=== PATIENT | male | born 1945 | race Caucasian/White ===

== ENCOUNTER 2018-01-17 15:04 | Inpatient (IN) | payer OTHER, SELFPAY ==
--- OUTSIDE RECORDS SUMMARY | 2018-01-17 15:06 | XMS REPORT | Clinical Summary ---
:1945 Author Organization [facility] Address [address] [place] [address] Phone Care Team Providers Name Role Phone Unavailable Primary Care Provider Unavailable Allergies No Known Allergies Current Medications Prescription Sig. Disp. Refills Start End Date Status Date amLODIPine Take 5 mg by mouth Active (NORVASC) 5 MG daily. tablet metoprolol Take 25 mg by mouth Active (LOPRESSOR) 25 MG 2 (two) times tablet daily. acetaminophen-cod Take 1 tablet by 30 tablet 0 Active eine (TYLENOL #3) mouth every 4 7 300-30 mg per (four) hours as tablet needed for Pain Do not combine with over the counter Tylenol. Max Daily Amount: 6 tablets docusate sodium Take 1 capsule (100 50 capsule 0 Active (COLACE) 100 MG mg total) by mouth 7 capsule 2 (two) times daily. aspirin 81 MG EC Take 81 mg by mouth 02/14/20 Discontinued tablet daily. 17 levoFLOXacin Take 750 mg by 02/14/20 Discontinued (LEVAQUIN) 750 MG mouth daily Times 7 17 tablet more days.. calcium carbonate Take 2 tablets 30 tablet 0 02/28/20 Discontinued (TUMS) 500 mg (1,000 mg total) by 7 17 chewable tablet mouth daily as needed. enoxaparin Inject 0.4 mLs (40 12 mL 0 04/03/20 (LOVENOX) 40 mg total) 7 17 mg/0.4 mL Syrg subcutaneously daily for 30 days. Active Problems Problem Noted Date Gross hematuria 03/01/2017 Renal mass 03/01/2017 Pleural effusion 02/11/2017 Weakness 02/08/2017 Generalized weakness 02/07/2017 Hematuria, gross 02/07/2017 Renal cell carcinoma (HCC) 02/07/2017 Hypertension 02/07/2017 History of stroke 02/07/2017 Anemia 02/07/2017 Resolved Problems Problem Noted Date Resolved Date Hematuria 02/07/2017 02/07/2017 History of renal cell cancer 02/07/2017 02/07/2017 Encounters Date Type Specialty Care Team Description 03/01/2017 - Hospital Encounter General Internal David Gonzalez 2017 Medicine MD Felipe 03/01/2017 Procedure Pass 03/01/2017 Surgery David Gonzalez NEPHRECTOMY MD Felipe 02/28/2017 Anesthesia Event Sharif Ramon MD 02/07/2017 Orders Only General Internal Medicine 02/06/2017 - Hospital Encounter Cardiology Kiara Berman Weakness ( Primary 02/13/2017 MD Luz Dx);Anemia, Patricio, Abeer, unspecified MD type;Generalized Parhizgar, weakness;Hematuria, MD Tonny gross;History of Shamsee, stroke;Essential Denis-Damián hypertension;Renal MD Bean cell carcinoma, left (HCC);Hematuria;Brandon al cell cancer, unspecified laterality (HCC);Preoperative clearance after 01/16/2017 Social History Tobacco Use Types Packs/Day Years Used Date Former Smoker Smokeless Tobacco: Never Used Comments: quit smoking in 2002 Alcohol Use Drinks/Week oz/Week Comments No Sex Assigned at Date Recorded Not on file Last Filed Vital Signs Vital Sign Reading Time Taken Blood Pressure 129/61 2017 10:38 AM CDT Pulse 74 2017 10:38 AM CDT Temperature 36.1 C (96.9 F) 2017 10:38 AM CDT Respiratory Rate 18 2017 10:38 AM CDT Oxygen Saturation 93% 2017 10:38 AM CDT Inhaled Oxygen Concentration - - Weight 78.2 kg (172 lb 6.4 oz) 03/01/2017 10:12 AM CDT Height 175.3 cm (5' 9") 03/01/2017 10:12 AM CDT Body Mass Index 25.46 03/01/2017 10:12 AM CDT Plan of Treatment Not on file Procedures Procedure Name Priority Date/Time Associated Diagnosis Comments CYSTOSCOPY,TURBT 03/01/2017 11:00 AM CDT Gross hematuria LYMPHADENECTOMY 03/01/2017 11:00 AM CDT Gross hematuria NEPHRECTOMY 03/01/2017 11:00 AM CDT Gross hematuria after 01/16/2017 Results INTRAOPERATIVE PATH REPORT - SCAN (04/13/2017 10:53 AM)Only the most recent of2 resultswithin the time period is included.Manual Differential (2017 4:26 AM)Only the most recent of6 resultswithin the time period is included. Component Value Ref Range Total Counted WBC Morphology Normal Platelet Morphology Normal RBC Morphology Normal Specimen Performing Laboratory Blood - Arm, [address] [address] CBC with platelet count + automated diff (2017 4:26 AM)Only the most recent of7 resultswithin the time period is included. Component Value Ref Range WBC 7.5 3.5 - 10.5 K/L RBC 3.23 (L) 4.63 - 6.08 M/L Hemoglobin 8.5 (L) 13.7 - 17.5 GM/DL Hematocrit 28.2 (L) 40.1 - 51.0 % MCV 87.3 79.0 - 92.2 fL MCH 26.3 25.7 - 32.2 pg MCHC 30.1 (L) 32.3 - 36.5 GM/DL RDW 16.5 (H) 11.6 - 14.4 % Platelets 241 150 - 450 K/CU MM MPV 10.2 9.4 - 12.4 fL nRBC 0 0 - 0 /100 WBC % Neutros 47 % % Lymphs 22 % % Monos 26 % % Eos 1 % % Baso 0 % # Neutros 3.50 1.78 - 5.38 K/L # Lymphs 1.64 1.32 - 3.57 K/L # Monos 1.95 (H) 0.30 - 0.82 K/L # Eos 0.10 0.04 - 0.54 K/L # Baso 0.02 0.01 - 0.08 K/L Immature Granulocytes-Relative 4 (H) 0 - 1 % Specimen Performing Laboratory Blood - Arm, [address] [address] CBC with platelet count + automated diff (2017 4:26 AM)Only the most recent of7 resultswithin the time period is included. Specimen Performing Laboratory Blood Narrative The following orders were created for panel order CBC with platelet count + automated diff. Procedure Abnormality Status --------- ------ CBC with platelet count ...[[id number]]AbnormalFinal result Manual Differential[[id number]] Fi nal result Please view results for these tests on the individual orders. Basic Metabolic Panel - In AM (2017 4:26 AM)Only the most recent of11 resultswithin the time period is included. Component Value Ref Range Sodium 138 136 - 145 meq/L Potassium 3.9 3.5 - 5.1 meq/L Chloride 107 98 - 107 meq/L CO2 22 22 - 29 meq/L BUN 10 7 - 21 mg/dL Creatinine 0.99 0.57 - 1.25 mg/dL Glucose 85 70 - 105 mg/dL Calcium 8.5 8.4 - 10.2 mg/dL EGFR 74Comment: ESTIMATED GFR IS NOT ACCURATE mL/min/1.73 sq m CREATININE CLEARANCE IN PREDICTING GLOMERULAR FILTRATION RATE. ESTIMATED GFR IS NOT APPLICABLE FOR DIALYSIS PATIENTS. Specimen Performing Laboratory Blood - Arm, [address] [address] Hemoglobin and hematocrit (03/03/2017 12:36 PM)Only the most recent of2 resultswithin the time period is included. Component Value Ref Range Hemoglobin 8.6 (L) 13.7 - 17.5 GM/DL Hematocrit 28.1 (L) 40.1 - 51.0 % Specimen Performing Laboratory Blood - Arm, [address] [address] Prepare RBC (03/02/2017 11:54 PM) Component Value Ref Range CROSSMATCH COMPATIBLE Unit ABO O Neg UNIT NUMBER [id number] Status TRANSFUSED Blood Bank Product RED BLOOD CELLS PRODUCT CODE [id number] CROSSMATCH COMPATIBLE Unit ABO O Neg UNIT NUMBER [id number] Status TRANSFUSED Blood Bank Product RED BLOOD CELLS PRODUCT CODE [id number] Specimen Performing Laboratory [employer] [place] XR X-RAY NO CHARGE (03/01/2017 5:03 PM) Specimen Performing Laboratory GE RIS Narrative FINAL REPORT Two abdomen images and a third image show an example of potential missing items. No visible retained sponge with marker similar to that of the provided example. Report called to the operating room staff. Signed: Priyanka Perea MD Report Verified Date/Time:03/01/2017 16:40:45 Reading Location: [facility] C013 Consult Reading Room Procedure Note Interface, External Ris In - 03/01/2017 5:07 PM CDT FINAL REPORT Two abdomen images and a third image show an example of potential missing items. No visible retained sponge with marker similar to that of the provided example. Report called to the operating room staff. Signed: Priyanka Perea MD Report Verified Date/Time: 03/01/2017 16:40:45 Reading Location: [facility] C013 Consult Reading Room /HCT (H&H)-Stat Lab (03/01/2017 4:38 PM)Only the most recent of2 resultswithin the time period is included. Component Value Ref Range Hemoglobin 10.4 (L) 13.0 - 16.8 g/dL Hematocrit 31.0 (L) 40.0 - 50.0 % Specimen Performing Laboratory Blood, [place] [address] [facility] (ABG,NA,K,H&H,GLUCOSE) (03/01/2017 12:21 PM) Specimen Performing Laboratory Blood, Arterial Narrative The following orders were created for panel order [facility] (ABG,NA,K,H&H,GLUCOSE). Procedure Abnormality Status --------- ------ Blood gas, arterial[[id number]]AbnormalFinal result Sodium Na-Stat Lab[[id number]] NormalFinal result Potassium-Stat Lab[[id number]] NormalFinal result Glucose-Stat Lab[[id number]] AbnormalFinal result HGB/HCT (H&H)-Stat Lab[[id number]] Abnormal Final result Please view results for these tests on the individual orders. Potassium-Stat Lab (03/01/2017 12:21 PM) Component Value Ref Range Potassium 4.1 3.6 - 5.5 meq/L Specimen Performing Laboratory Blood, [address] [address] Sodium Na-Stat Lab (03/01/2017 12:21 PM) Component Value Ref Range Sodium 137 135 - 148 meq/L Specimen Performing Laboratory Blood, [address] [address] Glucose-Stat Lab (03/01/2017 12:21 PM) Component Value Ref Range Glucose 114 (H) 70 - 110 mg/dL Specimen Performing Laboratory Blood, [address] [address] Calcium, Ionized (03/01/2017 12:21 PM) Component Value Ref Range Calcium, Ion 1.12 1.12 - 1.27 mmol/L pH, Blood 7.42 Specimen Performing Laboratory Blood [address] [address] Blood gas, arterial (03/01/2017 12:21 PM) Component Value Ref Range pH, Arterial 7.42 7.35 - 7.45 pCO2, Arterial 41 35 - 45 mmHg pO2, Arterial 296 (H) 80 - 90 mmHg O2 Sat, Arterial 99.7 (H) 96.0 - 97.0 % HCO3, Arterial 26 21 - 29 mmol/L Base Excess, Arterial 1.4 -2.0 - 3.0 mmol/L Patient Temperature 37.0 C FIO2 100.0 % Specimen Performing Laboratory Blood, [address] [address] Tissue Exam (03/01/2017 12:18 PM) Component Value Ref Range Case Report Surgical Pathology Report Case: [id number] Authorizing Provider:David Gonzalez MDCollected: 03/01/2017 1218 Ordering Location: [facility] PERIOPERATIVE Received: 03/01/2017 1302 SERVICES Pathologist: Nancy Malone MD Specimens: A) - Urinary Bladder, TUR, TURBTN LEFT LATERAL WALL B) - Mass, RIGHT ANTERIOR CHEST WALL MASS R/O RENAL CELL CARCINOMA METASTASIS C) - Lymph Node, PARA -AORTIC LYMPH NODE D) - Lymph Node, LEFT COMMON ILIAC LYMPH NODE E) - Kidney, Left, LEFT RADICAL NEPHRECTOMY, LEFT RETROPERITONEAL MASS DISSECTION F) - Lymph Node, LEFT RENAL HILAR LYMPH NODE DIAGNOSIS A. BLADDER, LEFT LATERAL WALL, BIOPSY: - FRAGMENT OF SOFT TISSUE, MOSTLY SMOOTH MUSCULAR TISSUE - UROTHELIUM IS NOT IDENTIFIED - NEGATIVE FOR MALIGNANCY (SEE COMMENT) B. MASS, RIGHT ANTERIOR CHEST WALL, EXCISION: - EPIDERMAL INCLUSION CYST, WITH CALCIFICATION,RUPTURE,APPARENTLY COMPLETELY EXCISED; OVERLYING SKIN WITHOUT DIAGNOSTIC ALTERATION C. LYMPH NODE, PARAAORTIC, BIOPSY: - ONE LYMPH NODE, NEGATIVE FOR MALIGNANCY (0/1) D. LYMPH NODES, LEFT COMMON ILIAC, BIOPSY: - FIVE LYMPH NODES, NEGATIVE FOR MALIGNANCY (0/5) E. KIDNEY, LEFT, RADICAL NEPHRECTOMY: - RENAL CELL CARCINOMA, CLASSIC/CLEAR CELL TYPE, GRADE 4(MOSTLY TATE GRADE 2-3) 11.X 8.5 X 8CM, WITH : GRADE 4 RENAL CELL CARCINOMA: ESTIMATED 5% SARCOMATOID RENAL CELL CARCINOMA ESTIMATED 5% - TUMOR IS PRESENT IN ATTENUATED CAPSULAR REGION AT MARGIN OF EXCISION, CLEAR CELL TYPE - EIGHT RENAL HILARLYMPH NODES, NEGATIVE FOR MALIGNANCY (0/8) - SURROUNDING KIDNEY WITHOUT DIAGNOSTIC ALTERATION/FOCAL SCLEROTIC GLOMERULI - URETER AND VESSELS WITHOUT DIAGNOSTIC ALTERATION LEFT ADRENAL, ADRENALECTOMY: - METASTATIC POORLY DIFFERENTIATED RENAL CELL CARCINOMA, CLEAR CELL TYPE , TATE NUCLEAR GRADE 4, THREE FOCI (3-8MM SITUATED INADRENAL CORTEX, AND PERIADRENAL ADIPOSE TISSUE) F.LYMPH NODES, LEFT COMMON ILIAC, BIOPSY: - THREE LYMPH NODES, NEGATIVE FOR MALIGNANCY (0/3) Signing Pathologist Direct Phone Line: [phone] COMMENT Sample A, from the left lateral wall of the bladder region does not show urothelium, but only smooth muscle. No malignancy is noted. Multiple additional slides (A1 L03 through A1 L05) are also studied after initial microscopic examination. These slides also do not show urothelium. SYNOPTIC REPORT KIDNEY: Nephrectomy, Partial or Radical(Kidney Res - All Specimens) Specimen Site:Kidney structure SPECIMEN Procedure:Radical nephrectomy Specimen Laterality:Left Tumor Site:Lower pole Tumor Focality:Unifocal Macroscopic Extent of Tumor:Tumor extension into adrenal gland Macroscopic Extent of Tumor:Non-contiguous (M1) TUMOR Histologic Type:Clear cell renal cell carcinoma Sarcomatoid Features:Present Specify Percentage of Sarcomatoid Element:3 Histologic Grade (Tate Nuclear Grade):G4: Nuclei bizarre and multilobated, 20 microns or greater, nucleoli prominent, chromatin clumped EXTENT Tumor Size (largest tumor if multiple):Greatest dimension (cm): 11 cm Additional Dimension (cm):8.5 cm Additional Dimension (cm):8 cm Microscopic Tumor Extension:Tumor extension into adrenal gland Microscopic Tumor Extension:Non-contiguous (M1) MARGINS Margin Status:Margin(s) involved by invasive carcinoma Margin Status:Other (specify): renalcapsule invaded, attenuated, with tumor at inked surface of excision ACCESSORY FINDINGS Tumor Necrosis (any amount):Present Lymph-Vascular Invasion:Not identified STAGE (pTNM) Primary Tumor (pT):pT2b: Tumor more than 10 cm, limited to the kidney Regional Lymph Nodes (pN):pN0: No regional lymph node metastasis Status of Regional Lymph Nodes: Number of Lymph Nodes Examined:Specify: 17 Number of Lymph Nodes Involved:Specify: 0 Distant Metastasis (pM):pM1: Distant metastasis ADDITIONAL NON-TUMOR Pathologic Findings in Nonneoplastic Kidney:Glomerular disease ( specify type): Sclerotic glomeruli Pathologic Findings in Nonneoplastic Kidney:Tubulointerstitial disease (specify type): Focal chronicinflammation CPT Code(s) 23598 X 2, 00805 X 2, 13253; 96521 x3, 89197 CLINICAL HISTORY Gross hematuria, left renal mass thoracoabdominal Procedure: Nephrostomy, cystoscopy, TURBT, left renal mass, thoracoabdominal and lleft radical nephrectomy, retroperitoneal lymphadenopathy SPECIMEN SOURCE A. TURBTN left lateral wall; B. Right anterior chest wall mass, rule out renal cell carcinoma metastasis GROSS DESCRIPTION Specimen A: Received in formalin labeled "urinary bladder, TUR", description "TURBTN left lateral wall" is a single fragment measuring 0.6 cm in greatest dimension. Entirely submitted A1. DB/pl Specimen B: Received fresh for intraoperative consultation labeled with the patient's information and "right anterior chest wall mass" is a 2 x 1.8 cm, round, arora-white skin excision excised to a depth of 1.2 cm. The peripheral margins are inked black. The specimen is bisected to reveal a arora-white cystic spacefilled with friable arora-white debris in subepithelial tissue. A touch preparation is per formed. [employer] sections are submitted in FSB1 and B2. SH/ew Specimen C: Received fresh labeled with the patient's name as "paraaortic lymph node" consists of an ovoid pale-arora lymph node measuring 2 x 0.7 x 0.3 cm. One touch prep is made.The lymph node is bi sected. Half of the tissue is submitted for frozen section FSC1. The other half is submitted for permanent in cassette C2. Specimen D: Received in formalin labeled with the patient's name as "lymph node left common iliac lymph node" consists of a 2.6 x 1.6 x 0.5 cm arora-brown adipose tissue elementLymph nodes are identif ied ranging from 0.3 to 1.2 cm in greatest dimension. The specimen is entirely submitted. D1, three lymph nodes; D2, the rest of the soft tissue. Specimen E: Received fresh labeled with the patient's name as "kidney left, description left radical nephrectomy, left retroperitoneal mass dissection" consists of a 1,250 gm, 22 x 12 x 10 cm nephrectom y specimen including a 15 x 9 x 8 cm kidney and perirenal adipose tissue and a 9 gm, 5 x 2.2 x 0.6 cm adrenal gland. An 8 x 1 x 0.5 cm ureteral segment is identified. The outer surface of the specimen i s inked black. A 1.7 x 0.6 x 0.6 cm vascular stump is identified.The ureter and vascular margin are free of tumor. The specimen is bivalved to reveal 11 x 8.5 x 8 cm arora-yellow mass with necrotic, h emorrhagic and pale firm areas. The mass expands and almost entirely replaces the renal parenchyma and attenuates the renal capsule capsule with a rim of 2.1 cm in greatest dimension kidney parenchyma l eft in superior pole and 2.3 cm in greatest dimension left in the inferior pole. [employer] sections are submitted. E1, vascular margin and ureteral margin; E2, one lymph node; E3, three lymph nodes; E4, hilar fat; E5, adrenal gland; E6 and E7, tumor with sinus fat; E8,, 9, 10, mass closest to capsule; E11 and E12, pale firm areas of mass; E13 and E14, hemorrhagic areas; E15 and E16, necrotic areas; E17 and E18, arora-yellow area; E19 and E20, mass with adjacent unremarkable par enchyma.E21-E30: the rest of adrenal gland entirely submitted continguously. Specimen F: Received in formalin labeled with the patient's name as "lymph node left renal hilar lymph node". It consists of multiple irregular adipose tissue measuring 2.6 x 1 x 0.3 cm in aggregate. Th ree lymph nodes are identified ranging from 0.3 to 1.3 cm in greatest dimension. The lymph nodes are entirely submitted in cassette F1.SM/ew INTRAOPERATIVE CONSULTATION B1FS, RIGHT ANTERIOR CHEST WALL MASS, EXCISION: - SKIN WITH BLAND SQUIAMOUS-LINED CYST, NEGATIVE FOR MALIGNANCY - MULTIPLE ATTEMPTS TO REPORT TO OR-6, 4 MAIN OR, AND 3 FAILED (HARD TO READ OR ROOM NUMBER; OR 4 NOTIFIED[address]DR. MALONE AT 1:33 P.M. C1FS, INTRAOPERATIVE CONSULTATION, PARAAORTIC LYMPH NODE, EXCISION: - ONE LYMPH NODE, NEGATIVE FOR MALIGNANCY - REPORTED BY DR. MALONE TO OR-4 AT 1:56 P.M. MICROSCOPIC DESCRIPTION E. The renal cell carcinoma exhibits a typical and classic clear cell type morphology throughout most of its extent, and is mostly Tate nuclear grades 2 and 3. However, there is up to 10% that includes sarcomatoid renal cell carcinoma, focally extending to within 1 mm of the pelvic urothelial lining. Renal cell carcinoma, clear cell type, is also present at the margin of excision, and has extended through an attenuated renal capsule in slide E 10. Some extremely polymorphous renal cell carcinoma, Tate nuclear grade 4, is also noted, with multilobated nuclei and large nuclei and prominent nucleoli. This type of tumor is present in the adrenal metastasis as well. Specimen Performing Laboratory Tissue - Urinary Bladder, TUR; Tissue - [facility] Mass; Tissue - Lymph Node; Tissue - [address] [facility], [place] [address] Prepare Leuko-Red RBC (03/01/2017 11:34 AM) Component Value Ref Range CROSSMATCH COMPATIBLE Unit ABO O Neg UNIT NUMBER [id number] Status READY Blood Bank Product RED BLOOD CELLS PRODUCT CODE [id number] CROSSMATCH COMPATIBLE Unit ABO O Neg UNIT NUMBER [id number] Status READY Blood Bank Product RED BLOOD CELLS PRODUCT CODE [id number] Specimen Performing Laboratory Other [employer] [place] Type and screen, automated (03/01/2017 10:31 AM) Component Value Ref Range ABO/RH AUTOMATED (BEAKER) O NEGATIVE Ab Scrn NEGATIVE Specimen Performing Laboratory Blood [address] [address] RHYTHM STRIP - SCAN (02/14/2017 1:21 PM)EKG-SCANNED (02/14/2017 1:21 PM) Cytology (02/13/2017 3:07 PM)Only the most recent of2 resultswithin the time period is included. Component Value Ref Range Case Report Medical Cytology Report Case: [id number] Authorizing Provider:Tonny Pace MD Collected: 02/13/2017 1507 Ordering Location: [address] Received: 02/14/2017 0852 Service Pathologist: Brody Lopez MD Specimen:Urine, Bladder Wash DIAGNOSIS URINE, BLADDER WASH (CYTOSPINS): - NEGATIVE FOR DYSPLASTIC/MALIGNANT CELLS Signing Pathologist Direct Phone Line: [phone] CPT Code(s) 67413 CLINICAL DATA History of left renal cell cancer SPECIMEN SOURCE URINE, BLADDER WASH (CYTOSPINS) GROSS DESCRIPTION 40 mls yellow; 4 cytospins Collected: [id number] Received: [id number] STATEMENT OF ADEQUACY Satisfactory Technical component was performed at [facility], Department of Pathology, [address] [place] [id number], Professional component was performed [facility], at Department of Pathology, [address] [place] [id number], Specimen Performing Laboratory Urine - Urine, Bladder Wash [address] [address] XR chest 1 view portable / bedside (02/12/2017 11:29 AM) Specimen Performing Laboratory GE RIS Narrative FINAL REPORT Chest, 1 view Clinical history: post right thoracentesis pt is in US room 1 Comparison: None Discussion: The patient is status post right thoracentesis without pneumothorax. There is a small right pleural effusion. There is mild bibasilar atelectasis. The cardiac silhouette is magnified by portable technique with tortuous appearance of the thoracic aorta. The osseous structures demonstrate degenerative changes. IMPRESSION: Status post right thoracentesis without pneumothorax. Signed: Jose L Yeager MD Report Verified Date/Time:02/12/2017 11:29:48 Reading Location: [facility] C013X Ortho Consult Reading Room Procedure Note Interface, External Ris In - 02/12/2017 11:32 AM CDT FINAL REPORT Chest, 1 view Clinical history: post right thoracentesis pt is in US room 1 Comparison: None Discussion: The patient is status post right thoracentesis without pneumothorax. There is a small right pleural effusion. There is mild bibasilar atelectasis. The cardiac silhouette is magnified by portable technique with tortuous appearance of the thoracic aorta. The osseous structures demonstrate degenerative changes. IMPRESSION: Status post right thoracentesis without pneumothorax. Signed: Jose L Yeager MD Report Verified Date/Time: 02/12/2017 11:29:48 Reading Location: [facility] C013X Ortho Consult Reading Room thoracentesis (02/12/2017 11:17 AM) Specimen Performing Laboratory GE RIS Narrative FINAL REPORT Ultrasound Guided right Thoracentesis: Modality: Ultrasound Approach: Right Posterior Lateral Intercostal Sedation: None Findings: Informed consent was obtained. After an appropriate site for drainage was found, the skin was prepped and draped, and local anesthesia was given. A 4 Italian catheterwas inserted into the right pleural space under ultrasound guidance, and approximately 500 cc of serosanguineous pleural fluid was aspirated. The catheter was removed. No immediate complications were noted. A postprocedure chest radiograph revealed no evidence of pneumothorax. Impression: 1.Uncomplicated ultrasound-guided right thoracentesis. Signed: David Fulton MD Report Verified Date/Time:02/12/2017 12:22:12 Reading Location: [facility] C013T Transitional Reading Room Procedure Note Interface, External Ris In - 02/12/2017 12:24 PM CDT FINAL REPORT Ultrasound Guided right Thoracentesis: Modality: Ultrasound Approach: Right Posterior Lateral Intercostal Sedation: None Findings: Informed consent was obtained. After an appropriate site for drainage was found, the skin was prepped and draped, and local anesthesia was given. A 4 Italian catheter was inserted into the right pleural space under ultrasound guidance, and approximately 500 cc of serosanguineous pleural fluid was aspirated. The catheter was removed. No immediate complications were noted. A postprocedure chest radiograph revealed no evidence of pneumothorax. Impression: 1. Uncomplicated ultrasound-guided right thoracentesis. Signed: David Fulton MD Report Verified Date/Time: 02/12/2017 12:22:12 Reading Location: [facility] C013T Transitional Reading Room /aPTT (02/12/2017 5:51 AM)Only the most recent of2 resultswithin the time period is included. Component Value Ref Range Protime 16.7 (H) 11.7 - 14.7 seconds INR 1.4 <=5.9 PTT 36.2 (H) 22.5 - 36.0 seconds Specimen Performing Laboratory Blood - Arm, [place] [address] Narrative RECOMMENDED COUMADIN/WARFARIN INR THERAPY RANGES STANDARD DOSE: 2.0 - 3.0 Includes: PROPHYLAXIS for venous thrombosis, systemic embolization; TREATMENT for venous thrombosis and/or pulmonary embolus. HIGH RISK: Target INR is 2.5-3.5 for patients with mechanical heart valves. For thoracentesis prep For thoracentesis prep CBC (Hemogram only) (02/12/2017 5:51 AM)Only the most recent of3 resultswithin the time period is included. Component Value Ref Range WBC 6.5 4.0 - 10.0 K/L RBC 3.28 (L) 4.20 - 5.80 M/L Hemoglobin 8.8 (L) 13.0 - 16.8 GM/DL Hematocrit 28.0 (L) 40.0 - 50.0 % MCV 85.3 82.0 - 98.0 fL MCH 26.8 (L) 27.0 - 33.0 pg MCHC 31.4 (L) 32.0 - 36.0 GM/DL RDW 15.7 (H) 10.3 - 14.2 % Platelets 245 150 - 430 K/CU MM MPV 7.5 6.5 - 10.5 fL nRBC 0 0 - 0 /100 WBC Specimen Performing Laboratory Blood - Arm, Left [facility] [address] [address] Narrative 0.00 0.56 0.00 0.00 0.00 0.00 0.00 0.00 MRA abdomen with IV contrast (02/10/2017 12:07 PM) Specimen Performing Laboratory [employer] RIS Narrative FINAL REPORT MRA / MRV of the abdominal aorta and renal arteries INDICATION: This is a 71 years old male with no large renal cell carcinoma, presents for assessment, evaluate the presence of absence of IVC/renal vein involvement. 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 TECHNIQUE: Leona Goustova MRI scan. Limited gradient echo images were performed for planning purposes. A Non-ECG gated, gadolinium enhanced 3-D MRA and MRV was performed in a coronal orientation. Other gradient echo sequences as well as the 3-D SSFP was also performed. Multi-planar reconstruction were performed using an independent workstation. Please refer to the contrast sheet scanned in the adFreeq system for the amount and route of contrast given. FINDINGS: This is a dedicated vascular study and assessment of the extravascular structures are limited. Incidental note, at least mild to moderate right basal pleural effusion is identified with associated atelectatic changes/consolidation. Noncontrast enhanced gradient echo images of the liver and spleen appears grossly unremarkable. The gallbladder is identified. Assessment of the pancreas is limited though no gross abnormality is seen. Assessment of the adrenal glands are limited. The right kidney is normal in size and shape. No hydronephrosis or perirenal fluid collection is seen. Various small cysts are seen with limited tissue characterization. More importantly, a large heterogeneous mass is identified in the lower three quarters of the LEFT kidney. In the MRA sequence, large portion of this mass is not enhanced by contrast, centrally, likely represent necrosis. This structure is likely the renal cell carcinoma from the clinical indication. By multiplanar reformation, the height of this mass is at least 11.5 cm and the maximum cross-sectional diameter is approximately 10.6 x 10.9 cm. No obvious free air or free fluid is identified. Assessment of the bowel, soft tissue, or musculoskeletal atrial structures are limited in this dedicated vascular study. High quality MRA data was obtained. The abdominal aorta is normal in course and calibre, however, there is some atherosclerosis identified in the infrarenal abdominal aorta. No acute aortic pathology is seen and no dissection or contained rupture is identified. Quantitative dimensions of the abdominal aorta are as follows: 2.2 cm at the mesenteric level; 1.8 cm at the renal level; and 1.8 cm at the aortic bifurcation. The common iliac and the visualised proximal left and right external iliac arteries, bilaterally, are patent with no obstructive lesion identified. Using different imaging sequences, the entire IVC is well visualised and well enhanced by contrast with no external compression, and no venous thrombosis identified. The associated pelvic veins are patent with no venous thrombosis identified. There are two right and left renal arteries, that are patent with no arterial stenosis identified. The superior left renal artery is slightly more posterior than the inferior and more anterior left renal artery. Single left and right renal veins are seen. The right renal vein is unremarkable. The left renal vein is well identified, and is free of tumour involvement; no venous thrombosis is identified. The coeliac axis, SMA, KHUSHBU are widely patent. The portal vein, superior mesenteric vein, and the splenic vein are patent with no venous stenosis present. CONCLUSIONS: 1.Unremarkable right kidney. Large mass is identified in the lower three quarters of the left kidney. The appearance is heterogeneous in nature. During contrast administration, only peripheral enhancement is identified suggesting central necrosis. Dimensions as described above. This is likely the RCC mentioned in the clinical indication. This is a dedicated vascular study and assessment of extravascular structures are limited. 2.Unremarkable abdominal aorta. Mild atherosclerosis seen in the infrarenal abdominal aorta. No acute aortic pathology is seen and no ectasia or aneurysmal dilation is identified. Quantitative dimensions of the abdominal aorta are as described above. The IVC is normal in course and calibre, and is patent with no venous thrombosis seen. No external compression to the IVC is identified. 3.Two left and two right renal arteries that are widely patent. Single left and right renal veins are seen; the left renal vein is patent with no venous thrombosis or tumour involvement. 4.Widely patent mesenteric arteries. The mesenteric veins are patent with no venous thrombosis identified. 5.Other findings as described above. This study is not optimised in the assessment of extravascular structures. Note, there is mild to moderate right basal pleural effusion identified with associated atelectatic changes. Assessment is incomplete. Signed: Thierry Morataya MD Report Verified Date/Time:02/10/2017 12:16:28 Reading Location: [place] [address] Cardiology MRI Procedure Note Interface, External Ris In - 02/10/2017 12:40 PM CDT FINAL REPORT MRA / MRV of the abdominal aorta and renal arteries INDICATION: This is a 71 years old male with no large renal cell carcinoma, presents for assessment, evaluate the presence of absence of IVC/renal vein involvement. 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 TECHNIQUE: Leona [employer] MRI scan. Limited gradient echo images were performed for planning purposes. A Non-ECG gated, gadolinium enhanced 3-D MRA and MRV was performed in a coronal orientation. Other gradient echo sequences as well as the 3-D SSFP was also performed. Multi-planar reconstruction were performed using an independent workstation. Please refer to the contrast sheet scanned in the EPIC system for the amount and route of contrast given. FINDINGS: This is a dedicated vascular study and assessment of the extravascular structures are limited. Incidental note, at least mild to moderate right basal pleural effusion is identified with associated atelectatic changes/consolidation. Noncontrast enhanced gradient echo images of the liver and spleen appears grossly unremarkable. The gallbladder is identified. Assessment of the pancreas is limited though no gross abnormality is seen. Assessment of the adrenal glands are limited. The right kidney is normal in size and shape. No hydronephrosis or perirenal fluid collection is seen. Various small cysts are seen with limited tissue characterization. More importantly, a large heterogeneous mass is identified in the lower three quarters of the LEFT kidney. In the MRA sequence, large portion of this mass is not enhanced by contrast, centrally, likely represent necrosis. This structure is likely the renal cell carcinoma from the clinical indication. By multiplanar reformation, the height of this mass is at least 11.5 cm and the maximum cross-sectional diameter is approximately 10.6 x 10.9 cm. No obvious free air or free fluid is identified. Assessment of the bowel, soft tissue, or musculoskeletal atrial structures are limited in this dedicated vascular study. High quality MRA data was obtained. The abdominal aorta is normal in course and calibre, however, there is some atherosclerosis identified in the infrarenal abdominal aorta. No acute aortic pathology is seen and no dissection or contained rupture is identified. Quantitative dimensions of the abdominal aorta are as follows: 2.2 cm at the mesenteric level; 1.8 cm at the renal level; and 1.8 cm at the aortic bifurcation. The common iliac and the visualised proximal left and right external iliac arteries, bilaterally, are patent with no obstructive lesion identified. Using different imaging sequences, the entire IVC is well visualised and well enhanced by contrast with no external compression, and no venous thrombosis identified. The associated pelvic veins are patent with no venous thrombosis identified. There are two right and left renal arteries, that are patent with no arterial stenosis identified. The superior left renal artery is slightly more posterior than the inferior and more anterior left renal artery. Single left and right renal veins are seen. The right renal vein is unremarkable. The left renal vein is well identified, and is free of tumour involvement; no venous thrombosis is identified. The coeliac axis, SMA, KHUSHBU are widely patent. The portal vein, superior mesenteric vein, and the splenic vein are patent with no venous stenosis present. CONCLUSIONS: 1. Unremarkable right kidney. Large mass is identified in the lower three quarters of the left kidney. The appearance is heterogeneous in nature. During contrast administration, only peripheral enhancement is identified suggesting central necrosis. Dimensions as described above. This is likely the RCC mentioned in the clinical indication. This is a dedicated vascular study and assessment of extravascular structures are limited. 2. Unremarkable abdominal aorta. Mild atherosclerosis seen in the infrarenal abdominal aorta. No acute aortic pathology is seen and no ectasia or aneurysmal dilation is identified. Quantitative dimensions of the abdominal aorta are as described above. The IVC is normal in course and calibre, and is patent with no venous thrombosis seen. No external compression to the IVC is identified. 3. Two left and two right renal arteries that are widely patent. Single left and right renal veins are seen; the left renal vein is patent with no venous thrombosis or tumour involvement. 4. Widely patent mesenteric arteries. The mesenteric veins are patent with no venous thrombosis identified. 5. Other findings as described above. This study is not optimised in the assessment of extravascular structures. Note, there is mild to moderate right basal pleural effusion identified with associated atelectatic changes. Assessment is incomplete. Signed: Thierry Morataya MD Report Verified Date/Time: 02/10/2017 12:16:28 Reading Location: [facility] P047 Cardiology MRI chest with IV contrast (02/10/2017 2:43 AM) Specimen Performing Laboratory [facility] Narrative FINAL REPORT CT, CHEST, WITH CONTRAST INDICATION: RCC, concern for mediastinal lymph node COMPARISON: Correlation to abdominal CT obtained by [facility] March 30, 2016 TECHNIQUE:Postcontrast axially oriented images were obtained from the thoracic inlet through the lung bases.Coronal and sagittal reformats were provided. DOSE REDUCTION: Dose modulation, iterative reconstruction, and/or weight-based adjustment of the mA/kV was utilized to reduce the radiation dose to as low as reasonably achievable. FINDINGS: There is a small volume, partially loculated right pleural effusion with associated relaxation atelectasis. No left effusion is present. There is no pulmonary nodularity or focal parenchymal opacity. The central airways are clear. The heart size is within normal limits. There is no pericardial effusion. No mediastinal or hilar adenopathy is present. The thoracic esophagus is normal. A small sliding hiatal hernia is present. Vessel calibers are within normal limits. Included osseous structures reveal no aggressive appearing lesions. Included portions of the upper abdomen reveal an incomplete view of the known, large heterogeneous left renal neoplasm. IMPRESSION: Small to moderate volume of partially loculated right pleural effusion and associated relaxation atelectasis. No evidence for pulmonary metastases or mediastinal lymphadenopathy. Signed: JR Ortiz Robert MD Report Verified Date/Time:02/10/2017 03:10:37 Reading Location: [facility] [id number] Transitional Reading Room Procedure Note Interface, External Ris In - 02/10/2017 3:12 AM CDT FINAL REPORT CT, CHEST, WITH CONTRAST INDICATION: RCC, concern for mediastinal lymph node COMPARISON: Correlation to abdominal CT obtained by [facility] March 30, 2016 TECHNIQUE: Postcontrast axially oriented images were obtained from the thoracic inlet through the lung bases. Coronal and sagittal reformats were provided. DOSE REDUCTION: Dose modulation, iterative reconstruction, and/or weight-based adjustment of the mA/kV was utilized to reduce the radiation dose to as low as reasonably achievable. FINDINGS: There is a small volume, partially loculated right pleural effusion with associated relaxation atelectasis. No left effusion is present. There is no pulmonary nodularity or focal parenchymal opacity. The central airways are clear. The heart size is within normal limits. There is no pericardial effusion. No mediastinal or hilar adenopathy is present. The thoracic esophagus is normal. A small sliding hiatal hernia is present. Vessel calibers are within normal limits. Included osseous structures reveal no aggressive appearing lesions. Included portions of the upper abdomen reveal an incomplete view of the known, large heterogeneous left renal neoplasm. IMPRESSION: Small to moderate volume of partially loculated right pleural effusion and associated relaxation atelectasis. No evidence for pulmonary metastases or mediastinal lymphadenopathy. Signed: JR Ortiz Robert MD Report Verified Date/Time: 02/10/2017 03:10:37 Reading Location: [address] Transitional Reading Room myocardial perfusion SPECT, pharm(Lexiscan) (02/09/2017 3:29 PM) Specimen Performing Laboratory [facility] Narrative FINAL REPORT PROCEDURE:Rest/Stress MYOCARDIAL PERFUSION SPECT with regadenoson\\XA9\\ CPT CODE:82570 INDICATION:Cardiac workup, risk stratification HISTORY:Cardiac risk factors: Hypertension, stroke. Other cardiovascular history: No reported CAD. Recent cardiac symptoms: None. Current cardiovascular-related medications: Norvasc. PROTOCOL:10.3 mCi of Tc-99m sestamibi was injected iv at rest, and SPECT (tomographic) images were obtained. Also, 32.7 mCi of Tc-99m sestamibi was injected iv at expected peak pharmacologic effect, and gated SPECT images were obtained. PRELIMINARY STRESS TEST DATA FROM NONINVASIVE CARDIOLOGY: Pharmacologic stress was by 10-second iv infusion of 0.4 mg of regadenoson. Radiotracer was injected 30 seconds after start of stress. Heart rate was 72 beats/min at rest and 88 beats/min (59 % of MPHR) at tracer injection. BP was 128/66 mmHg at rest and 126/53 mmHg at tracer injection. Stress was stopped for predetermined endpoint. The patient experienced none; treatment was not required. Preliminary ECG evaluation revealed sinus rhythm at rest and no ischemic changes with stress. (Final ECG interpretation and other stress and monitoring data are reported separately by Cardiology.) IMAGING FINDINGS:Study quality is good. Images obtained after rest and stress injections show normal LV activity. LV and RV volumes appear normal. Gated images obtained at rest after stress show normal LV wall motion and thickening. QGS LVEF is >70%. IMPRESSION: 1. Normal study.2. Appropriate pharmacologic stress. 3. Normal myocardial perfusion.4. Normal resting LV function.5. Normal extracardiac tracer distribution.6. No previous [facility] study for comparison. NONINVASIVE RISK STRATIFICATION: The above findings are considered low risk (<1% annual mortality rate) based on the following criterion: - Normal or small myocardial perfusion defect at rest or with stress (JACC. 2012;59(9):857-81.) Signed: Loy Amaro MD Report Verified Date/Time:02/09/2017 15:57:08 Reading Location: [address] Reading Room Procedure Note Interface, External Ris In - 02/09/2017 3:59 PM CDT FINAL REPORT PROCEDURE: Rest/Stress MYOCARDIAL PERFUSION SPECT with regadenoson\\XA9\\ CPT CODE: 88803 INDICATION: Cardiac workup, risk stratification HISTORY: Cardiac risk factors: Hypertension, stroke. Other cardiovascular history: No reported CAD. Recent cardiac symptoms: None. Current cardiovascular-related medications: Norvasc. PROTOCOL: 10.3 mCi of Tc-99m sestamibi was injected iv at rest, and SPECT (tomographic) images were obtained. Also, 32.7 mCi of Tc-99m sestamibi was injected iv at expected peak pharmacologic effect, and gated SPECT images were obtained. PRELIMINARY STRESS TEST DATA FROM NONINVASIVE CARDIOLOGY: Pharmacologic stress was by 10-second iv infusion of 0.4 mg of regadenoson. Radiotracer was injected 30 seconds after start of stress. Heart rate was 72 beats/min at rest and 88 beats/min (59 % of MPHR) at tracer injection. BP was 128/66 mmHg at rest and 126/53 mmHg at tracer injection. Stress was stopped for predetermined endpoint. The patient experienced none; treatment was not required. Preliminary ECG evaluation revealed sinus rhythm at rest and no ischemic changes with stress. (Final ECG interpretation and other stress and monitoring data are reported separately by Cardiology.) IMAGING FINDINGS: Study quality is good. Images obtained after rest and stress injections show normal LV activity. LV and RV volumes appear normal. Gated images obtained at rest after stress show normal LV wall motion and thickening. QGS LVEF is >70%. IMPRESSION: 1. Normal study. 2. Appropriate pharmacologic stress. 3. Normal myocardial perfusion. 4. Normal resting LV function. 5. Normal extracardiac tracer distribution. 6. No previous [facility] study for comparison. NONINVASIVE RISK STRATIFICATION: The above findings are considered low risk (<1% annual mortality rate) based on the following criterion: - Normal or small myocardial perfusion defect at rest or with stress (JACC. 2012;59(9):857-81.) Signed: Loy Amaro MD Report Verified Date/Time: 02/09/2017 15:57:08 Reading Location: [address] Reading Room Treadmill tolerance(Non-Nuclear Treadmill) (02/09/2017 10:43 AM) Specimen Performing Laboratory [employer] Narrative Protocol Name Regadenoson Time In Exercise Phase 00:01:00 Max. Systolic BP 126 mmHg Max Diastolic BP 53 mmHg Max Heart Rate 88 BPM Max Predicted Heart Rate 148 BPM Reason For Termination Predetermined end point Reason for Test Pre Op Cardiac Evaluation/Clearance Target HR Formula (220 - Age)*100% Arrhythmias none Resting ECG Normal sinus rhythm ST Changes No Significant Changes Overall Impression Indeterminate due to pharmacological stress Chest Pain none HR Response To Exercise Appropriate for pharmacological stress BP Response To Exercise Appropriate Response for Pharma Stress NORVASC Confirmed by fellow Laine Gillis ([id number]) on 02/09/2017 11:57:11 AM Confirmed by MD JEAN JORGE ([id number]) on 02/10/2017 12:16:02 PM Procedure Note Interface, External Ris In - 02/10/2017 12:16 PM CDT Protocol Name Regadenoson Time In Exercise Phase 00:01:00 Max. Systolic BP 126 mmHg Max Diastolic BP 53 mmHg Max Heart Rate 88 BPM Max Predicted Heart Rate 148 BPM Reason For Termination Predetermined end point Reason for Test Pre Op Cardiac Evaluation/Clearance Target HR Formula (220 - Age)*100% Arrhythmias none Resting ECG Normal sinus rhythm ST Changes No Significant Changes Overall Impression Indeterminate due to pharmacological stress Chest Pain none HR Response To Exercise Appropriate for pharmacological stress BP Response To Exercise Appropriate Response for Pharma Stress NORVASC Confirmed by fellow Laine Gillis ([id number]) on 02/09/2017 11:57:11 AM Confirmed by MD JEAN JORGE ([id number]) on 02/10/2017 12:16:02 PM ECG 12 lead (02/09/2017 10:34 AM)Only the most recent of2 resultswithin the time period is included. Specimen Performing Laboratory [facility] Narrative Ventricular Rate 74 BPM Atrial Rate 74 BPM P-R Interval 178 ms QRS Duration 90 ms Q-T Interval 378 ms QTC Calculation(Bazett) 419 ms P [place] 38 degrees R [place] 41 degrees T [place] 54 degrees Normal sinus rhythm Normal ECG Confirmed by MD JEAN JORGE ([id number]) on 02/09/2017 2:02:14 PM Procedure Note Interface, External Ris In - 02/09/2017 2:02 PM CDT Ventricular Rate 74 BPM Atrial Rate 74 BPM P-R Interval 178 ms QRS Duration 90 ms Q-T Interval 378 ms QTC Calculation(Bazett) 419 ms P [place] 38 degrees R [place] 41 degrees T [place] 54 degrees Normal sinus rhythm Normal ECG Confirmed by MD JEAN JORGE ([id number]) on 02/09/2017 2:02:14 PM Lactic acid, venous, whole blood (02/09/2017 6:19 AM)Only the most recent of2 resultswithin the time period is included. Component Value Ref Range Lactate, Venous 0.9 0.5 - 2.2 mmol/L Specimen Performing Laboratory Blood - Arm, [address] [address] Narrative Effective 12/02/2015: Units/Reference Range Change New: 0.5-2.2 mmol/LPrevious: 5-20 mg/dL Blood culture (02/09/2017 6:19 AM)Only the most recent of2 resultswithin the time period is included. Component Value Ref Range Result No growth in 5 days Specimen Performing Laboratory Blood - Arm, [address] [address] 2D Echo W/Doppler(CW/PW/Color) (02/08/2017 6:00 PM) Specimen Performing Laboratory [facility] Narrative Echocardiography Laboratory [address] [place], [place] [address] [address] Voice:[phone] Transthoracic Echocardiogram Pat.Name:SHAN BROOKS.ID:[id number] .Date: 02/08/2017 Refer.MD:WALESKA MALCOLM Exam Time: 6:00:00 PMStudy Type:Echo Complete Height:69inWeight: 183lb BSA: 1.99 m2 DOBAge:1945,71Y Sex: MALEBP:118/58 HR:72 bpmSonogrphr: Bella Castellanos [facility] Pat. Stat.:Inpatient Room:[facility] Reason for Study:Shortness of breath History / Clinical:Anemia, Cancer, Hypertension, Stroke/TIA, Renal disorder Procedures:2D ECHO W/ DOPPLER (CW/PW/COLOR) SUMMARY: Left ventricular chamber size (by PSLAX dimension) is normal (male - LVIDd4.2-5.8 cm). All of the LV segments appear hyperkinetic. Estimated LVEF by qualitative assessment is increased (>70%). Grade 1 diastolic dysfunction (impaired relaxation and low-normal LA pressure). The right ventricular chamber size and systolic function are within normal limits. Estimated Peak systolic PA pressure is 30-35 mm Hg. No pericardial effusion is visualized. FINDINGS: LV: All of the LV segments appear hyperkinetic. The LV endocardumis partially visualized by standard views. No evidenceof LV hypertrophy. Left ventricular chamber size (byPSLAX dimension) is normal (male - LVIDd4.2-5.8 cm). EstimatedLVEF by qualitative assessment is increased (>70%).Grade 1 diastolic dysfunction (impaired relaxation andlow-normal LA pressure). LA: LA size is normal (16-34 ml/m2). LA is adequately visualized. RV: The right ventricular chamber size and systolic function are withinnormal limits. RV is well visualized. RA: The RA is well visualized. RA cavity size is normal. AV: Mild AoV cusp thickening. MV: Mild MV leaflet thickening. MV is well visualized. TV: Normal TV structure and function. A trace of tricuspid regurgitation.TV is well visualized. Estimated Peak systolicPA pressure is 30-35 mm Hg. PV: Normal PV structure and function by limited views and Doppler. AO: Aortic root size (Sinus of Valsalva diameter) is normal. Pericard: No pericardial effusion is visualized. Systemic Veins: The estimated RA pressure by IVC dynamics 0-5 mmHg. Quality:Technically fair exam. MEASUREMENTS: 2D LA Sng Plane LA Vol49.2 mlIndex 24.7 ml/m2 LA Area 17.9 cm2(8.8-23.4) Aorta Ao Rtd3.65 cm LVOT LVOT 2.1 cm Parasternal Long [place] IVSd 0.976 cmLVPWd0.706 cm LVIDd 4.84 cm (4.3-5.1) LA Ds 3.08 cm (2.3-3.9) LVIDs 2.52 cm (2-4)LV Wmn 0.841 cm LV%fs 47.9 %(25-46)* DOPPLER AV LVOT For Flow DLPClkZlo265 cm/s (70-110)* LVOT CO 6.66 l/min LVOT VTI21.2 cmLVOT CI 3.35 l/min/m2 LVOTpkPG7.11 mmHgLVOT Area 3.46 cm2 LVOTmnPG3.75 ycCwMM76 bpm LVOT SV 73.5 ml Aortic Valve AV DI0.838 SVi (LVOT)37 AV AV For Flow/PAVEL AV pkVel 156 cm/s (100-170) AV AC/ET 0.0935 AV mnVel 108 cm/sAVpkAcRt 61000 cm/s2 AV pkPG 9.79 mmHgAV DeRt 669 cm/s2 AV mnPG 5.29 mmHgArea (VTI) 2.9 cm2(3-5)* AV VTI25.3 cmArea (Florentino) 2.95 cm2(3-5)* AV ET234 msec AV AC 22 msec (83-118)* PA Sys Press TI florentino 266 cm/Carlie Press 5 mmHg RV-RA PG28.4 mmHgSysP TV 33.4 mmHg Signed 02/09/2017 09:02 AM Simón Mims M.D. Procedure Note Interface, External Ris In - 02/09/2017 9:03 AM CDT Echocardiography Laboratory [address] [place] [address] Voice: [phone] Transthoracic Echocardiogram Pat.Name: SHAN BROOKS Pat.ID: [id number] .Date: 02/08/2017 Refer.MD: WALESKA MALCOLM Exam Time: 6:00:00 PM Study Type:Echo Complete Height: 69in Weight: 183lb BSA: 1.99 m2 Age: 8 1945,71Y Sex: MALE BP: 118/58 HR: 72 bpm Sonogrphr: Bella Castellanos [facility] Pat. Stat.:Inpatient Room: [facility] Reason for Study:Shortness of breath History / Clinical:Anemia, Cancer, Hypertension, Stroke/TIA, Renal disorder Procedures:2D ECHO W/ DOPPLER (CW/PW/COLOR) SUMMARY: Left ventricular chamber size (by PSLAX dimension) is normal (male - LVIDd 4.2-5.8 cm). All of the LV segments appear hyperkinetic. Estimated LVEF by qualitative assessment is increased (>70%). Grade 1 diastolic dysfunction (impaired relaxation and low-normal LA pressure). The right ventricular chamber size and systolic function are within normal limits. Estimated Peak systolic PA pressure is 30-35 mm Hg. No pericardial effusion is visualized. FINDINGS: LV: All of the LV segments appear hyperkinetic. The LV endocardum is partially visualized by standard views. No evidence of LV hypertrophy. Left ventricular chamber size (by PSLAX dimension) is normal (male - LVIDd 4.2-5.8 cm). Estimated LVEF by qualitative assessment is increased (>70%). Grade 1 diastolic dysfunction (impaired relaxation and low-normal LA pressure). LA: LA size is normal (16-34 ml/m2). LA is adequately visualized. RV: The right ventricular chamber size and systolic function are within normal limits. RV is well visualized. RA: The RA is well visualized. RA cavity size is normal. AV: Mild AoV cusp thickening. MV: Mild MV leaflet thickening. MV is well visualized. TV: Normal TV structure and function. A trace of tricuspid regurgitation. TV is well visualized. Estimated Peak systolic PA pressure is 30-35 mm Hg. PV: Normal PV structure and function by limited views and Doppler. AO: Aortic root size (Sinus of Valsalva diameter) is normal. Pericard: No pericardial effusion is visualized. Systemic Veins: The estimated RA pressure by IVC dynamics 0-5 mmHg. Quality: Technically fair exam. MEASUREMENTS: 2D LA Sng Plane LA Vol 49.2 ml Index 24.7 ml/m2 LA Area 17.9 cm2 (8.8-23.4) Aorta Ao Rtd 3.65 cm LVOT LVOT 2.1 cm Parasternal Long [place] IVSd 0.976 cm LVPWd 0.706 cm LVIDd 4.84 cm (4.3-5.1) LA Ds 3.08 cm (2.3-3.9) LVIDs 2.52 cm (2-4) LV Wmn 0.841 cm LV%fs 47.9 % (25-46)* DOPPLER AV LVOT For Flow LVOTpkVel 133 cm/s (70-110)* LVOT CO 6.66 l/min LVOT VTI 21.2 cm LVOT CI 3.35 l/min/m2 LVOTpkPG 7.11 mmHg LVOT Area 3.46 cm2 LVOTmnPG 3.75 mmHg HR 91 bpm LVOT SV 73.5 ml Aortic Valve AV DI 0.838 SVi (LVOT) 37 AV AV For Flow/PAVEL AV pkVel 156 cm/s (100-170) AV AC/ET 0.0935 AV mnVel 108 cm/s AVpkAcRt 04161 cm/s2 AV pkPG 9.79 mmHg AV DeRt 669 cm/s2 AV mnPG 5.29 mmHg Area (VTI) 2.9 cm2 (3-5)* AV VTI 25.3 cm Area (Florentino) 2.95 cm2 (3-5)* AV ET 234 msec AV AC 22 msec (83-118)* PA Sys Press TI florentino 266 cm/s RA Press 5 mmHg RV-RA PG 28.4 mmHg SysP TV 33.4 mmHg Signed 02/09/2017 09:02 AM Simón Mims M.D. Ferritin (02/08/2017 8:52 AM) Component Value Ref Range Ferritin 575 (H) 5 - 275 ng/mL Specimen Performing Laboratory Blood - Line, Venous [address] [address] Narrative Effective 06/17/2014: Reference Range Change New: Male 5-275Previous: Male 22-322 Female 5-275Female 10-291 Phosphorus (02/08/2017 5:02 AM)Only the most recent of2 resultswithin the time period is included. Component Value Ref Range Phosphorus 3.9 2.3 - 4.7 mg/dL Specimen Performing Laboratory Blood - Arm, Left [address] [address] Magnesium (02/08/2017 5:02 AM)Only the most recent of2 resultswithin the time period is included. Component Value Ref Range Magnesium 2.2 1.6 - 2.6 mg/dL Specimen Performing Laboratory Blood - Arm, [address] [address] Hepatic function panel (02/08/2017 5:02 AM)Only the most recent of2 resultswithin the time period is included. Component Value Ref Range Protein, Total 7.0 6.0 - 8.3 gm/dL Albumin 2.9 (L) 3.5 - 5.0 g/dL Total Bilirubin 0.5 0.2 - 1.2 mg/dL Bilirubin, Direct 0.3 0.1 - 0.5 mg/dL Alkaline Phosphatase 73 40 - 150 U/L AST 11 5 - 34 U/L ALT 7 6 - 55 U/L Specimen Performing Laboratory Blood - Arm[address] [address] TSH/Free T4 If Indicated (02/07/2017 5:29 AM) Component Value Ref Range TSH 2.93 0.35 - 4.94 uIU/mL Specimen Performing Laboratory Blood - Arm, [address] [address] C-Reactive Protein (02/07/2017 5:29 AM) Component Value Ref Range CRP 13.33 (H) 0.00 - 0.50 mg/dL Specimen Performing Laboratory Blood - [facility], [address] [address] Troponin I (02/07/2017 5:29 AM) Component Value Ref Range Troponin I <0.01 0.00 - 0.03 ng/mL Specimen Performing Laboratory Blood - Arm, [address] [address] Narrative Effective 06/17/2014: Reference Range Change New: 0.00-0.03 Previous 0.00-0.15 Troponin I (TnI) levels must be interpreted in the context of the presenting symptoms and the clinical findings. Elevated TnI levels indicate myocardial damage, but are not specific for ischemic heart disease. Elevated TnI levels are seen in patients with other cardiac conditions (including myocarditis and congestive heart failure), and slight TnI elevations occur in patients with other conditions, including sepsis, renal failure, acidosis, acute neurological disease, and persistent tachyarrhythmia. Sedimentation rate (02/07/2017 5:29 AM) Component Value Ref Range Sed Rate 101 (H) 0 - 40 mm/HR Specimen Performing Laboratory Blood - Arm, [address] [address] Hemoglobin A1c (02/07/2017 5:29 AM) Component Value Ref Range Hemoglobin A1C 5.4 4.3 - 6.1 % Specimen Performing Laboratory Blood - Arm, [address] [address] Vitamin B12 (02/07/2017 5:29 AM) Component Value Ref Range Vitamin B12 266 213 - 816 pg/mL Specimen Performing Laboratory Blood - Arm, [address] [address] Creatine Kinase (CK), Total and MB (02/07/2017 5:29 AM) Component Value Ref Range Total CK 18 (L) 29 - 200 U/L CK-MB 0.6 0.0 - 6.6 ng/mL MB Relative Index 3.3 % Specimen Performing Laboratory Blood - Arm, [address] [address] Narrative Effective 06/17/2014: CK-MB Reference Range Change New: 0.0-6.6Previous: 0.0-4.9 CK-MB Reference Range: <6.7Normal 6.7-10.0Borderline >10.0 Abnormal Lipid panel (02/07/2017 5:29 AM) Component Value Ref Range Triglycerides 78 mg/dL Cholesterol 115 mg/dL HDL 38 mg/dL LDL Calculated 61 mg/dL Specimen Performing Laboratory Blood - Arm, [address] [address] Narrative Triglyceride Reference Range: Low Risk <150 [id number] High Risk 200-499 Very High Risk>=500 Cholesterol Reference Range: Low Risk <200 [id number] High Risk>240 HDL Cholesterol Reference Range: Low Risk >=60 High Risk <40 LDL Cholesterol Reference Range: Optimal<100 Near [id number] [id number] [id number] Very High >=190 Urine culture (02/07/2017 1:36 AM) Component Value Ref Range Result No growth Specimen Performing Laboratory Urine - Urine, Clean Catch [facility] [address] [place] [address], [place] [address] Urinalysis w/Microscopic - Clean Catch (02/06/2017 10:49 PM) Component Value Ref Range Color, UA Red Clarity, UA Turbid Specific [place], UA 1.015 1.001 - 1.035 pH, UA 5.5 5.0 - 8.0 Protein, UA >=300 mg/dL (A) Negative Glucose, UA 100 mg/dL (A) Negative Ketones, UA 15 mg/dL (A) Negative Bilirubin, UA Positive (A) Negative Blood, UA Large (A) Negative Nitrite, UA Negative Negative Leukocytes, UA Large (A) Negative Urobilinogen, UA >=8.0 (H) 0.2 - 1.0 mg/dL Bacteria, UA Moderate Mucus Moderate Amorphous Crystals Many RBC, UA >100 /HPF WBC, UA 20-50 /HPF SQUAMOUS EPITHELIAL <5 /HPF Specimen Source Specimen Performing Laboratory Urine - Urine, [place] [facility] [address] [place] [id number] after 01/16/2017
--- OUTSIDE RECORDS SUMMARY | 2018-01-17 15:07 | XMS REPORT ---
:1945 [facility] Kumar [address] [place] [id number] Care Team Providers Name Role Phone SAMANTHA GONZALEZ Unavailable Unavailable CALLIE LARA Unavailable Unavailable Problems This patient has no known problems. Allergies, Adverse Reactions, Alerts This patient has no known allergies or adverse reactions. Medications This patient has no known medications. Results Test Description Test Time Test Comments Text Results Atomic Results Result Comments TISSUE EXAM 2017-03-10 17:31:00 Surgical Pathology Report Case: [id number] Authorizing Provider: Samantha Gonzalez MD Collected: 03/01/2017 1218 Ordering Location: [facility] PERIOPERATIVE Received: 03/01/2017 1302 SERVICES Pathologist: Nancy [...] Lymph Node, LEFT RENAL HILAR LYMPH NODE A. BLADDER, LEFT LATERAL WALL, BIOPSY: - FRAGMENT OF SOFT TISSUE, MOSTLY SMOOTH MUSCULAR TISSUE - UROTHELIUM IS NOT IDENTIFIED - NEGATIVE FOR MALIGNANCY (SEE COMMENT)B. MASS, RIGHT ANTERIOR CHEST WALL, EXCISION: - EPIDERMAL INCLUSION CYST, WITH CALCIFICATION, RUPTURE,APPARENTLY COMPLETELY EXCISED; OVERLYING SKIN WITHOUT DIAGNOSTIC ALTERATION C. LYMPH NODE, PARAAORTIC, BIOPSY: - ONE LYMPH NODE, NEGATIVE FOR MALIGNANCY (0/1)D. LYMPH NODES, LEFT COMMON ILIAC, BIOPSY: - FIVE LYMPH NODES, NEGATIVE FOR MALIGNANCY (0/5)E. KIDNEY, LEFT, RADICAL NEPHRECTOMY: - RENAL CELL CARCINOMA, CLASSIC/CLEAR CELL TYPE, GRADE 4 (MOSTLY TATE GRADE 2-3) 11.X 8.5 X 8CM, WITH : GRADE 4 RENAL CELL CARCINOMA: ESTIMATED 5% SARCOMATOID RENAL CELL CARCINOMA ESTIMATED 5% - TUMOR IS PRESENT IN ATTENUATED CAPSULAR REGION AT MARGIN OF EXCISION, CLEAR CELL TYPE - EIGHT RENAL HILAR LYMPH NODES, NEGATIVE FOR MALIGNANCY (0/8) - SURROUNDING KIDNEY WITHOUT DIAGNOSTIC ALTERATION/FOCAL SCLEROTIC GLOMERULI - URETER AND VESSELS WITHOUT DIAGNOSTIC ALTERATION LEFT ADRENAL, ADRENALECTOMY: - METASTATIC POORLY DIFFERENTIATED RENAL CELL CARCINOMA, CLEAR CELL TYPE, TATE NUCLEAR GRADE 4, THREE FOCI (3-8MM SITUATED IN ADRENAL CORTEX, AND PERIADRENAL ADIPOSE TISSUE)F. LYMPH NODES, LEFT COMMON ILIAC, BIOPSY: - THREE LYMPH NODES, NEGATIVE FOR MALIGNANCY (0/3) Signing Pathologist Direct Phone Line: [phone] signed by Nancy Malone MD on 03/10/2017 at 5:31 PMSample A, from the left lateral wall of the bladder region does not show urothelium, but only smooth muscle. No malignancy is noted. Multiple additional slides (A1 L03 through A1 L05) are also studied after initial microscopic examination. These slides also do not show urothelium.KIDNEY: Nephrectomy, Partial or Radical (Kidney Res - All Specimens) Specimen Site: Kidney structureSPECIMEN Procedure: Radical nephrectomy Specimen Laterality: Left Tumor Site: Lower pole Tumor Focality: Unifocal Macroscopic Extent of Tumor: Tumor extension into adrenal gland Macroscopic Extent of Tumor: Non-contiguous (M1)TUMOR Histologic Type: Clear cell renal cell carcinoma Sarcomatoid Features: Present Specify Percentage of Sarcomatoid Element: 3 Histologic Grade (Tate Nuclear Grade): G4: Nuclei bizarre and multilobated, 20 microns or greater, nucleoli prominent, chromatin clumpedEXTENT Tumor Size (largest tumor if multiple): Greatest dimension (cm): 11 cm Additional Dimension (cm): 8.5 cm Additional Dimension (cm): 8 cm Microscopic Tumor Extension: Tumor extension into adrenal gland Microscopic Tumor Extension: Non-contiguous (M1)MARGINS Margin Status: Margin(s) involved by invasive carcinoma Margin Status: Other (specify): renal capsule invaded, attenuated, with tumor at inked surface of excisionACCESSORY FINDINGS Tumor Necrosis (any amount): Present Lymph-Vascular Invasion: Not identifiedSTAGE (pTNM) Primary Tumor (pT): pT2b: Tumor more than 10 cm, limited to the kidney Regional Lymph Nodes (pN): pN0: No regional lymph node metastasis Status of Regional Lymph Nodes: Number of Lymph Nodes Examined: Specify: 17 Number of Lymph Nodes Involved: Specify: 0 Distant Metastasis (pM): pM1: Distant metastasisADDITIONAL NON-TUMOR Pathologic Findings in Nonneoplastic Kidney: Glomerular disease (specify type): Sclerotic glomeruli Pathologic Findings in Nonneoplastic Kidney: Tubulointerstitial disease (specify type): Focal chronic lhsygxiapyae03697 X 2, 05270 X 2, 91758; 88486 x3, 81509Lbzol hematuria, left renal mass thoracoabdominalProcedure: Nephrostomy, cystoscopy, TURBT, left renal mass, thoracoabdominal and lleft radical nephrectomy, retroperitoneal lymphadenopathyA. TURBTN left lateral wall; B. Right anterior chest wall mass, rule out renal cell carcinoma metastasis Specimen A: Received in formalin labeled "urinary bladder, TUR", description "TURBTN left lateral wall" is a single fragment measuring 0.6 cm in greatest dimension. Entirely submitted A1. DB/plSpecimen B: Received fresh for intraoperative consultation labeled with the patient's information and "right anterior chest wall mass" is a 2 x 1.8 cm, round, arora-white skin excision excised to a depth of 1.2 cm. The peripheral margins are inked black. The specimen is bisected to reveal a arora-white cystic space filled with friable arora-white debris in subepithelial tissue. A touch preparation is performed. Slipman sections are submitted in FSB1 and B2. SH/ewSpecimen C: Received fresh labeled with the patient's name as "paraaortic lymph node" consists of an ovoid pale-arora lymph node measuring 2 x 0.7 x 0.3 cm. One touch prep is made. The lymph node is bisected. Half of the tissue is submitted for frozen section FSC1. The other half is submitted for permanent in cassette C2.Specimen D: Received in formalin labeled with the patient's name as "lymph node left common iliac lymph node" consists of a 2.6 x 1.6 x 0.5 cm arora-brown adipose tissue element Lymph nodes are identified ranging from 0.3 to 1.2 cm in greatest dimension. The specimen is entirely submitted. D1, three lymph nodes; D2, the rest of the soft tissue.Specimen E: Received fresh labeled with the patient's name as "kidney left, description left radical nephrectomy, left retroperitoneal mass dissection" consists of a 1,250 gm, 22 x 12 x 10 cm nephrectomy specimen including a 15 x 9 x 8 cm kidney and perirenal adipose tissue and a 9 gm, 5 x 2.2 x 0.6 cm adrenal gland. An 8 x 1 x 0.5 cm ureteral segment is identified. The outer surface of the specimen is inked black. A 1.7 x 0.6 x 0.6 cm vascular stump is identified. The ureter and vascular margin are free of tumor. The specimen is bivalved to reveal 11 x 8.5 x 8 cm arora-yellow mass with necrotic, hemorrhagic and pale firm areas. The mass expands and almost entirely replaces the renal parenchyma and attenuates the renal capsule capsule with a rim of 2.1 cm in greatest dimension kidney parenchyma left in superior pole and 2.3 cm in greatest dimension left in the inferior pole. Slipman sections are submitted. E1, vascular margin and [...] E19 and E20, mass with adjacent unremarkable parenchyma. E21-E30: the rest of adrenal gland entirely submitted continguously.Specimen F: Received in formalin labeled with the patient's name as "lymph node left renal hilar lymph node". It consists of multiple irregular adipose tissue measuring 2.6 x 1 x 0.3 cm in aggregate. Three lymph nodes are identified ranging from 0.3 to 1.3 cm in greatest dimension. The lymph nodes are entirely submitted in cassette F1.SM/ewB1FS, RIGHT ANTERIOR CHEST WALL MASS, EXCISION: - SKIN WITH BLAND SQUIAMOUS-LINED CYST, NEGATIVE FOR MALIGNANCY - MULTIPLE ATTEMPTS TO REPORT TO OR-6, 4 MAIN OR, AND 3 FAILED (HARD TO READ OR ROOM NUMBER; OR [address] MALONE AT 1:33 P.M.C1FS, INTRAOPERATIVE CONSULTATION, PARAAORTIC LYMPH NODE, EXCISION: - ONE LYMPH NODE, NEGATIVE FOR MALIGNANCY - REPORTED BY DR. MALONE TO OR-4 AT 1:56 P.M.E. The renal cell carcinoma exhibits a typical [...] present in the adrenal metastasis as well. CBC W/PLT COUNT & AUTO DIFFERENTIAL 2017 08:13:00 Test Item Value Reference Range Comments WHITE BLOOD CELL COUNT (BEAKER) (test ybga=041) 7.5 K/ L 3.5-10.5 RED BLOOD CELL COUNT (BEAKER) (test hoed=589) 3.23 M/ L 4.63-6.08 HEMOGLOBIN (BEAKER) (test tvmn=763) 8.5 GM/DL 13.7-17.5 HEMATOCRIT (BEAKER) (test uluk=751) 28.2 % 40.1-51.0 MEAN CORPUSCULAR VOLUME (BEAKER) (test swhd=070) 87.3 fL 79.0-92.2 MEAN CORPUSCULAR HEMOGLOBIN (BEAKER) (test dbpd=105) 26.3 pg 25.7-32.2 MEAN CORPUSCULAR HEMOGLOBIN CONC (BEAKER) (test ktnb=366) 30.1 GM/DL 32.3- 36.5 RED CELL DISTRIBUTION WIDTH (BEAKER) (test ijbv=419) 16.5 % 11.6-14.4 PLATELET COUNT (BEAKER) (test yksd=592) 241 K/CU MM 150-450 MEAN PLATELET VOLUME (BEAKER) (test pffa=701) 10.2 fL 9.4-12.4 NUCLEATED RED BLOOD CELLS (BEAKER) (test dubf=376) 0 /100 WBC 0-0 NEUTROPHILS RELATIVE PERCENT (BEAKER) (test pjae=306) 47 % LYMPHOCYTES RELATIVE PERCENT (BEAKER) (test kphv=329) 22 % MONOCYTES RELATIVE PERCENT (BEAKER) (test gkcs=459) 26 % EOSINOPHILS RELATIVE PERCENT (BEAKER) (test avoc=696) 1 % BASOPHILS RELATIVE PERCENT (BEAKER) (test mngc=443) 0 % NEUTROPHILS ABSOLUTE COUNT (BEAKER) (test scjw=828) 3.50 K/ L 1.78-5.38 LYMPHOCYTES ABSOLUTE COUNT (BEAKER) (test jtnq=183) 1.64 K/ L 1.32-3.57 MONOCYTES ABSOLUTE COUNT (BEAKER) (test hpeg=899) 1.95 K/ L 0.30-0.82 EOSINOPHILS ABSOLUTE COUNT (BEAKER) (test dznc=867) 0.10 K/ L 0.04-0.54 BASOPHILS ABSOLUTE COUNT (BEAKER) (test tons=196) 0.02 K/ L 0.01-0.08 IMMATURE GRANULOCYTES-RELATIVE PERCENT (BEAKER) (test 4 % 0-1 hnro=4728) (MANUAL DIFFERENTIAL)2017 08:13:00 Test Item Value Reference Range Comments TOTAL COUNTED (BEAKER) (test rwby=1848) WBC MORPHOLOGY (BEAKER) (test colo=630) Normal PLT MORPHOLOGY (BEAKER) (test uygo=551) Normal RBC MORPHOLOGY (BEAKER) (test jeod=026) Normal BASIC METABOLIC [id number] 05:12:00 Test Item Value Reference Range Comments SODIUM (BEAKER) (test 138 meq/L 136-145 sdzm=784) POTASSIUM (BEAKER) (test 3.9 meq/L 3.5-5.1 jbhd=246) CHLORIDE (BEAKER) (test 107 meq/L 98-107 rjek=070) CO2 (BEAKER) (test 22 meq/L 22-29 zdut=679) BLOOD UREA NITROGEN 10 mg/dL 7-21 (BEAKER) (test exrm=332) CREATININE (BEAKER) (test 0.99 mg/dL 0.57-1.25 smqp=632) GLUCOSE RANDOM (BEAKER) 85 mg/dL 70-105 (test rvtv=853) CALCIUM (BEAKER) (test 8.5 mg/dL 8.4-10.2 hikv=348) EGFR (BEAKER) (test 74 mL/min/1.73 sq m ESTIMATED GFR IS NOT gpau=1539) ACCURATE CREATININE CLEARANCE IN PREDICTING GLOMERULAR FILTRATION RATE. ESTIMATED GFR IS NOT APPLICABLE FOR DIALYSIS PATIENTS. HEMOGLOBIN AND [id number] 12:44:00 Test Item Value Reference Range Comments HEMOGLOBIN (BEAKER) (test mjwi=599) 8.6 GM/DL 13.7-17.5 HEMATOCRIT (BEAKER) (test hbvb=235) 28.1 % 40.1-51.0 CBC W/PLT COUNT & AUTO [id number] 09:06:00 Test Item Value Reference Range Comments WHITE BLOOD CELL COUNT (BEAKER) (test scni=678) 13.1 K/ L 3.5-10.5 RED BLOOD CELL COUNT (BEAKER) (test uckv=980) 3.16 M/ L 4.63-6.08 HEMOGLOBIN (BEAKER) (test vknf=728) 8.4 GM/DL 13.7-17.5 HEMATOCRIT (BEAKER) (test mbmn=254) 27.8 % 40.1-51.0 MEAN CORPUSCULAR VOLUME (BEAKER) (test rhfx=996) 88.0 fL 79.0-92.2 MEAN CORPUSCULAR HEMOGLOBIN (BEAKER) (test 26.6 pg 25.7-32.2 dogb=610) MEAN CORPUSCULAR HEMOGLOBIN CONC (BEAKER) (test 30.2 GM/DL 32.3-36.5 gxlf=973) RED CELL DISTRIBUTION WIDTH (BEAKER) (test 16.4 % 11.6-14.4 ichd=455) PLATELET COUNT (BEAKER) (test devk=323) 255 K/CU MM 150-450 MEAN PLATELET VOLUME (BEAKER) (test wttj=795) 10.5 fL 9.4-12.4 NUCLEATED RED BLOOD CELLS (BEAKER) (test 0 /100 WBC 0-0 eour=794) NEUTROPHILS RELATIVE PERCENT (BEAKER) (test 60 % cmsq=288) LYMPHOCYTES RELATIVE PERCENT (BEAKER) (test 11 % rmfo=678) MONOCYTES RELATIVE PERCENT (BEAKER) (test 26 % hpmt=541) EOSINOPHILS RELATIVE PERCENT (BEAKER) (test 1 % dkpy=847) BASOPHILS RELATIVE PERCENT (BEAKER) (test 0 % dlvg=482) NEUTROPHILS ABSOLUTE COUNT (BEAKER) (test 7.83 K/ L 1.78-5.38 rlbd=137) LYMPHOCYTES ABSOLUTE COUNT (BEAKER) (test 1.45 K/ L 1.32-3.57 qmug=395) MONOCYTES ABSOLUTE COUNT (BEAKER) (test 3.47 K/ L 0.30-0.82 ekiw=744) EOSINOPHILS ABSOLUTE COUNT (BEAKER) (test 0.09 K/ L 0.04-0.54 qrdu=568) BASOPHILS ABSOLUTE COUNT (BEAKER) (test 0.02 K/ L 0.01-0.08 buai=759) IMMATURE GRANULOCYTES-RELATIVE PERCENT (BEAKER) 2 % 0-1 (test aqrc=2474) (MANUAL DIFFERENTIAL)2017-03-03 09:06:00 Test Item Value Reference Range Comments TOTAL COUNTED (BEAKER) (test mnjq=4469) WBC MORPHOLOGY (BEAKER) (test deow=566) Normal PLT MORPHOLOGY (BEAKER) (test cefw=778) Normal RBC MORPHOLOGY (BEAKER) (test wcpw=859) Normal BASIC METABOLIC [id number] 05:29:00 Test Item Value Reference Range Comments SODIUM (BEAKER) (test 136 meq/L 136-145 oncg=969) POTASSIUM (BEAKER) (test 4.3 meq/L 3.5-5.1 aeks=743) CHLORIDE (BEAKER) (test 110 meq/L 98-107 puke=238) CO2 (BEAKER) (test 20 meq/L 22-29 nmqx=475) BLOOD UREA NITROGEN 13 mg/dL 7-21 (BEAKER) (test ljmx=016) CREATININE (BEAKER) (test 1.07 mg/dL 0.57-1.25 ngwt=294) GLUCOSE RANDOM (BEAKER) 85 mg/dL 70-105 (test ffhz=295) CALCIUM (BEAKER) (test 8.2 mg/dL 8.4-10.2 yhiq=376) EGFR (BEAKER) (test 68 mL/min/1.73 sq m ESTIMATED GFR IS NOT ktpg=8848) ACCURATE CREATININE CLEARANCE IN PREDICTING GLOMERULAR FILTRATION RATE. ESTIMATED GFR IS NOT APPLICABLE FOR DIALYSIS PATIENTS. BASIC METABOLIC [id number] 05:14:00 Test Item Value Reference Range Comments SODIUM (BEAKER) (test 138 meq/L 136-145 rimw=709) POTASSIUM (BEAKER) (test 4.7 meq/L 3.5-5.1 lhbh=323) CHLORIDE (BEAKER) (test 110 meq/L 98-107 fwmd=146) CO2 (BEAKER) (test 19 meq/L 22-29 taix=861) BLOOD UREA NITROGEN 13 mg/dL 7-21 (BEAKER) (test qcjc=549) CREATININE (BEAKER) (test 1.11 mg/dL 0.57-1.25 tzqp=223) GLUCOSE RANDOM (BEAKER) 141 mg/dL 70-105 (test bbow=747) CALCIUM (BEAKER) (test 8.4 mg/dL 8.4-10.2 xnrz=592) EGFR (BEAKER) (test 65 mL/min/1.73 sq m ESTIMATED GFR IS NOT iwpp=6652) ACCURATE CREATININE CLEARANCE IN PREDICTING GLOMERULAR FILTRATION RATE. ESTIMATED GFR IS NOT APPLICABLE FOR DIALYSIS PATIENTS. CBC W/PLT COUNT & AUTO [id number] 04:53:00 Test Item Value Reference Range Comments WHITE BLOOD CELL COUNT (BEAKER) (test zwho=427) 22.5 K/ L 3.5-10.5 RED BLOOD CELL COUNT (BEAKER) (test ccxt=979) 3.58 M/ L 4.63-6.08 HEMOGLOBIN (BEAKER) (test gafz=899) 9.5 GM/DL 13.7-17.5 HEMATOCRIT (BEAKER) (test mxci=558) 31.0 % 40.1-51.0 MEAN CORPUSCULAR VOLUME (BEAKER) (test rrxd=653) 86.6 fL 79.0-92.2 MEAN CORPUSCULAR HEMOGLOBIN (BEAKER) (test 26.5 pg 25.7-32.2 xxis=856) MEAN CORPUSCULAR HEMOGLOBIN CONC (BEAKER) (test 30.6 GM/DL 32.3-36.5 pdkw=377) RED CELL DISTRIBUTION WIDTH (BEAKER) (test 15.9 % 11.6-14.4 zlrp=805) PLATELET COUNT (BEAKER) (test poct=766) 281 K/CU MM 150-450 MEAN PLATELET VOLUME (BEAKER) (test mpwv=310) 10.2 fL 9.4-12.4 NUCLEATED RED BLOOD CELLS (BEAKER) (test 0 /100 WBC 0-0 dlwy=220) NEUTROPHILS RELATIVE PERCENT (BEAKER) (test 71 % kknr=384) LYMPHOCYTES RELATIVE PERCENT (BEAKER) (test 5 % wuib=149) MONOCYTES RELATIVE PERCENT (BEAKER) (test 22 % hfjp=347) EOSINOPHILS RELATIVE PERCENT (BEAKER) (test 0 % vxhi=607) BASOPHILS RELATIVE PERCENT (BEAKER) (test 0 % zlky=679) NEUTROPHILS ABSOLUTE COUNT (BEAKER) (test 15.83 K/ L 1.78-5.38 cftt=714) LYMPHOCYTES ABSOLUTE COUNT (BEAKER) (test 1.08 K/ L 1.32-3.57 ezez=552) MONOCYTES ABSOLUTE COUNT (BEAKER) (test 4.99 K/ L 0.30-0.82 ayhp=638) EOSINOPHILS ABSOLUTE COUNT (BEAKER) (test 0.00 K/ L 0.04-0.54 ufce=966) BASOPHILS ABSOLUTE COUNT (BEAKER) (test 0.02 K/ L 0.01-0.08 djbg=890) IMMATURE GRANULOCYTES-RELATIVE PERCENT (BEAKER) 2 % 0-1 (test uxpj=1819) BASIC METABOLIC [id number] 18:30:00 Test Item Value Reference Range Comments SODIUM (BEAKER) (test 139 meq/L 136-145 mtst=851) POTASSIUM (BEAKER) (test 4.6 meq/L 3.5-5.1 capu=629) CHLORIDE (BEAKER) (test 109 meq/L 98-107 jxhn=236) CO2 (BEAKER) (test 23 meq/L 22-29 dusy=675) BLOOD UREA NITROGEN 14 mg/dL 7-21 (BEAKER) (test woiw=789) CREATININE (BEAKER) (test 1.03 mg/dL 0.57-1.25 tzps=062) GLUCOSE RANDOM (BEAKER) 157 mg/dL 70-105 (test bzaw=404) CALCIUM (BEAKER) (test 7.9 mg/dL 8.4-10.2 fopf=981) EGFR (BEAKER) (test 71 mL/min/1.73 sq m ESTIMATED GFR IS NOT hfhv=7966) ACCURATE CREATININE CLEARANCE IN PREDICTING GLOMERULAR FILTRATION RATE. ESTIMATED GFR IS NOT APPLICABLE FOR DIALYSIS PATIENTS. HEMOGLOBIN AND [id number] 18:12:00 Test Item Value Reference Range Comments HEMOGLOBIN (BEAKER) (test mthn=402) 10.1 GM/DL 13.7-17.5 HEMATOCRIT (BEAKER) (test pfyl=573) 31.9 % 40.1-51.0 HGB/HCT (H&H) - STAT [id number] 16:50:00 Test Item Value Reference Range Comments HEMOGLOBIN (BEAKER) (test apkv=307) 10.4 g/dL 13.0-16.8 HEMATOCRIT (BEAKER) (test tnse=314) 31.0 % 40.0-50.0 SODIUM NA-STAT [id number] 12:35:00 Test Item Value Reference Range Comments SODIUM (BEAKER) (test tnet=616) 137 meq/L 135-148 POTASSIUM-STAT [id number] 12:35:00 Test Item Value Reference Range Comments POTASSIUM (BEAKER) (test buia=524) 4.1 meq/L 3.6-5.5 CALCIUM, [id number] 12:35:00 Test Item Value Reference Range Comments CALCIUM IONIZED (BEAKER) (test dvse=804) 1.12 mmol/L 1.12-1.27 PH, BLOOD (BEAKER) (test gtbw=6382) 7.42 BLOOD GAS, [id number] 12:35:00 Test Item Value Reference Range Comments PH ARTERIAL (BEAKER) (test wggl=309) 7.42 7.35-7.45 PCO2 ARTERIAL (BEAKER) (test gsfp=968) 41 mmHg 35-45 PO2 ARTERIAL (BEAKER) (test jmvg=942) 296 mmHg 80-90 O2 SATURATION ARTERIAL (BEAKER) (test ajiy=873) 99.7 % 96.0-97.0 HCO3 ARTERIAL (BEAKER) (test zufe=717) 26 mmol/L 21-29 BASE EXCESS ARTERIAL (BEAKER) (test qxxe=298) 1.4 mmol/L -2.0-3.0 PATIENT TEMPERATURE (BEAKER) (test crwr=5286) 37.0 C FIO2 (BEAKER) (test iapy=7057) 100.0 % GLUCOSE-STAT [id number] 12:35:00 Test Item Value Reference Range Comments GLUCOSE RANDOM (BEAKER) (test xkfw=228) 114 mg/dL 70-110 HGB/HCT (H&H) - STAT [id number] 12:35:00 Test Item Value Reference Range Comments HEMOGLOBIN (BEAKER) (test qbxb=194) 8.7 g/dL 13.0-16.8 HEMATOCRIT (BEAKER) (test vrkk=635) 26.0 % 40.0-50.0 [id number] 17:04:00Medical Cytology Report Case: [id number] Authorizing Provider: Tonny Pace MD Collected: 02/13/2017 1507 Ordering Location: [address] Received: 02/14/2017 0852 Service Pathologist: Brody Lopez MD Specimen: Urine, Bladder Wash URINE, BLADDER WASH (CYTOSPINS): - NEGATIVE FOR DYSPLASTIC/MALIGNANT CELLS Signing Pathologist Direct Phone Line: [phone] signed by Brody Lopez MD on 02/14/2017 at 5:04 [id number] left renal cell cancerURINE, BLADDER WASH (CYTOSPINS)40 mls yellow; 4 cytospinsCollected: [id number]: [id number]t Saint Anthony's Hospital, Department of Pathology, [address] [place] [address], [facility], [facility], [address] [place] [address], [id number] 13:43:00Medical Cytology Report Case: [id number] Authorizing Provider: Dinesh Curry MD Collected: 2016 0917 Ordering Location: [address] Received : 02/13/2017 0917 Service Pathologist: Brody Lopez MD Specimen: Pleural, Right RIGHT PLEURAL FLUID (CYTOSPINS AND CELL BLOCK): - NO MALIGNANT CELLS IDENTIFIED CHRONIC INFLAMMATION PRESENTSigning Pathologist Direct Phone Line: [phone] signed by Brody Lopez MD on 02/14/2017 at 1:43 [id number], [id number] pleural effusion, diagnosed with renal cell carcinoma in December [address] scan when he had gross hematuria.RIGHT PLEURAL FLUID (CYTOSPINS AND CELL BLOCK)400 mls light brown; 4 cytospins, cell blockCollected: [id number]: [id number]t Saint [facility] Hospital, Department of Pathology, [address] [place] [address], [facility], [facility], [address] [place] [address], UHYHN [id number] 11:00:00 Test Item Value Reference Range Comments CULTURE (BEAKER) (test yjwb=9643) No growth in 5 days BLOOD [id number] 06:00:00 Test Item Value Reference Range Comments CULTURE (BEAKER) (test euks=5499) No growth in 5 days CBC W/PLT COUNT & AUTO [id number] 10:41:00 Test Item Value Reference Range Comments WHITE BLOOD CELL COUNT (BEAKER) (test iowu=557) 7.2 K/ L 4.0-10.0 RED BLOOD CELL COUNT (BEAKER) (test zsjz=106) 3.35 M/ L 4.20-5.80 HEMOGLOBIN (BEAKER) (test pxnt=537) 9.1 GM/DL 13.0-16.8 HEMATOCRIT (BEAKER) (test wxma=985) 28.7 % 40.0-50.0 MEAN CORPUSCULAR VOLUME (BEAKER) (test gnuu=056) 85.6 fL 82.0-98.0 MEAN CORPUSCULAR HEMOGLOBIN (BEAKER) (test 27.1 pg 27.0-33.0 wety=107) MEAN CORPUSCULAR HEMOGLOBIN CONC (BEAKER) (test 31.6 GM/DL 32.0-36.0 azeb=702) RED CELL DISTRIBUTION WIDTH (BEAKER) (test 16.0 % 10.3-14.2 eovb=213) PLATELET COUNT (BEAKER) (test adfy=024) 260 K/CU MM 150-430 MEAN PLATELET VOLUME (BEAKER) (test zcpb=529) 7.5 fL 6.5-10.5 NUCLEATED RED BLOOD CELLS (BEAKER) (test 0 /100 WBC 0-0 ktvm=927) NEUTROPHILS RELATIVE PERCENT (BEAKER) (test 47 % xakh=313) LYMPHOCYTES RELATIVE PERCENT (BEAKER) (test 20 % ufor=084) MONOCYTES RELATIVE PERCENT (BEAKER) (test 30 % ctzs=564) EOSINOPHILS RELATIVE PERCENT (BEAKER) (test 2 % juyk=368) BASOPHILS RELATIVE PERCENT (BEAKER) (test 1 % peki=225) NEUTROPHILS ABSOLUTE COUNT (BEAKER) (test 3.39 K/ L 1.80-8.00 gyth=064) LYMPHOCYTES ABSOLUTE COUNT (BEAKER) (test 1.42 K/ L 1.48-4.50 ecch=401) MONOCYTES ABSOLUTE COUNT (BEAKER) (test 2.19 K/ L 0.00-1.30 mwhw=845) EOSINOPHILS ABSOLUTE COUNT (BEAKER) (test 0.15 K/ L 0.00-0.50 rqoa=884) BASOPHILS ABSOLUTE COUNT (BEAKER) (test 0.04 K/ L 0.00-0.20 cajl=062) [id number](MANUAL DIFFERENTIAL)2017-02-13 10:41:00 Test Item Value Reference Range Comments TOTAL COUNTED (BEAKER) (test apri=9014) WBC MORPHOLOGY (BEAKER) (test kzgo=105) Normal PLT MORPHOLOGY (BEAKER) (test feqc=879) Normal RBC MORPHOLOGY (BEAKER) (test babg=496) Normal BASIC METABOLIC [id number] 05:55:00 Test Item Value Reference Range Comments SODIUM (BEAKER) (test 134 meq/L 136-145 gllx=045) POTASSIUM (BEAKER) (test 3.8 meq/L 3.5-5.1 mjhz=645) CHLORIDE (BEAKER) (test 103 meq/L 98-107 kufy=375) CO2 (BEAKER) (test 21 meq/L 22-29 iqic=700) BLOOD UREA NITROGEN 8 mg/dL 7-21 (BEAKER) (test kaer=573) CREATININE (BEAKER) (test 0.85 mg/dL 0.57-1.25 lgcv=122) GLUCOSE RANDOM (BEAKER) 96 mg/dL 70-105 (test ycqz=505) CALCIUM (BEAKER) (test 9.0 mg/dL 8.4-10.2 xhll=634) EGFR (BEAKER) (test 89 mL/min/1.73 sq m ESTIMATED GFR IS NOT lkfn=5367) ACCURATE CREATININE CLEARANCE IN PREDICTING GLOMERULAR FILTRATION RATE. ESTIMATED GFR IS NOT APPLICABLE FOR DIALYSIS PATIENTS. CBC (HEMOGRAM ONLY)2017-02-12 07:58:00 Test Item Value Reference Range Comments WHITE BLOOD CELL COUNT (BEAKER) (test rhfp=812) 6.5 K/ L 4.0-10.0 RED BLOOD CELL COUNT (BEAKER) (test xffv=274) 3.28 M/ L 4.20-5.80 HEMOGLOBIN (BEAKER) (test zxdi=609) 8.8 GM/DL 13.0-16.8 HEMATOCRIT (BEAKER) (test baum=996) 28.0 % 40.0-50.0 MEAN CORPUSCULAR VOLUME (BEAKER) (test mrut=799) 85.3 fL 82.0-98.0 MEAN CORPUSCULAR HEMOGLOBIN (BEAKER) (test 26.8 pg 27.0-33.0 fzrb=021) MEAN CORPUSCULAR HEMOGLOBIN CONC (BEAKER) (test 31.4 GM/DL 32.0-36.0 wcjd=683) RED CELL DISTRIBUTION WIDTH (BEAKER) (test 15.7 % 10.3-14.2 tbmw=257) PLATELET COUNT (BEAKER) (test tflf=608) 245 K/CU MM 150-430 MEAN PLATELET VOLUME (BEAKER) (test wdhv=438) 7.5 fL 6.5-10.5 NUCLEATED RED BLOOD CELLS (BEAKER) (test 0 /100 WBC 0-0 asmb=258) 0.000.560.000.000.000.000.000.00BASIC METABOLIC [id number] 07:21:00 Test Item Value Reference Range Comments SODIUM (BEAKER) (test 136 meq/L 136-145 xgto=794) POTASSIUM (BEAKER) (test 3.7 meq/L 3.5-5.1 srjd=503) CHLORIDE (BEAKER) (test 105 meq/L 98-107 oaev=877) CO2 (BEAKER) (test 22 meq/L 22-29 vcmu=099) BLOOD UREA NITROGEN 8 mg/dL 7-21 (BEAKER) (test lxqw=245) CREATININE (BEAKER) (test 0.85 mg/dL 0.57-1.25 ylvk=150) GLUCOSE RANDOM (BEAKER) 98 mg/dL 70-105 (test txsj=148) CALCIUM (BEAKER) (test 8.6 mg/dL 8.4-10.2 fpei=663) EGFR (BEAKER) (test 89 mL/min/1.73 sq m ESTIMATED GFR IS NOT sroq=2615) ACCURATE CREATININE CLEARANCE IN PREDICTING GLOMERULAR FILTRATION RATE. ESTIMATED GFR IS NOT APPLICABLE FOR DIALYSIS PATIENTS. [id number] 06:48:00 Test Item Value Reference Range Comments PROTIME (BEAKER) (test hvsq=198) 16.7 seconds 11.7-14.7 INR (BEAKER) (test esee=553) 1.4 <=5.9 PARTIAL THROMBOPLASTIN TIME (BEAKER) (test 36.2 seconds 22.5-36.0 ugke=200) RECOMMENDED COUMADIN/WARFARIN INR THERAPY RANGESSTANDARD DOSE: 2.0 - 3.0 Includes: PROPHYLAXIS forvenous thrombosis, systemic embolization; TREATMENT for venous thrombosis and/or pulmonary embolus.HIGH RISK: Target INR is 2.5-3.5 for patients with mechanical heart valves.For thoracentesis prepFor thoracentesis prepCBC (HEMOGRAM ONLY)2017-02-10 06:42:00 Test Item Value Reference Range Comments WHITE BLOOD CELL COUNT (BEAKER) (test mkcl=075) 8.0 K/ L 4.0-10.0 RED BLOOD CELL COUNT (BEAKER) (test iohx=532) 3.12 M/ L 4.20-5.80 HEMOGLOBIN (BEAKER) (test cadl=835) 9.0 GM/DL 13.0-16.8 HEMATOCRIT (BEAKER) (test giiu=995) 26.7 % 40.0-50.0 MEAN CORPUSCULAR VOLUME (BEAKER) (test bodz=661) 85.6 fL 82.0-98.0 MEAN CORPUSCULAR HEMOGLOBIN (BEAKER) (test 28.8 pg 27.0-33.0 pqhr=273) MEAN CORPUSCULAR HEMOGLOBIN CONC (BEAKER) (test 33.7 GM/DL 32.0-36.0 fszp=083) RED CELL DISTRIBUTION WIDTH (BEAKER) (test 16.8 % 10.3-14.2 xwpr=656) PLATELET COUNT (BEAKER) (test ftpv=280) 233 K/CU MM 150-430 MEAN PLATELET VOLUME (BEAKER) (test wdfb=209) 7.9 fL 6.5-10.5 NUCLEATED RED BLOOD CELLS (BEAKER) (test 0 /100 WBC 0-0 ocxr=066) 0.000.510.000.000.000.00BASI METABOLIC [id number] 06:03:00 Test Item Value Reference Range Comments SODIUM (BEAKER) (test 133 meq/L 136-145 irtc=060) POTASSIUM (BEAKER) (test 4.0 meq/L 3.5-5.1 eaiz=447) CHLORIDE (BEAKER) (test 104 meq/L 98-107 plrb=948) CO2 (BEAKER) (test 21 meq/L 22-29 ykch=700) BLOOD UREA NITROGEN 14 mg/dL 7-21 (BEAKER) (test vtjs=982) CREATININE (BEAKER) (test 0.91 mg/dL 0.57-1.25 rihu=060) GLUCOSE RANDOM (BEAKER) 100 mg/dL 70-105 (test ylqc=546) CALCIUM (BEAKER) (test 8.6 mg/dL 8.4-10.2 zmzj=580) EGFR (BEAKER) (test 82 mL/min/1.73 sq m ESTIMATED GFR IS NOT xiow=3599) ACCURATE CREATININE CLEARANCE IN PREDICTING GLOMERULAR FILTRATION RATE. ESTIMATED GFR IS NOT APPLICABLE FOR DIALYSIS PATIENTS. URINE [id number] 08:51:00 Test Item Value Reference Range Comments CULTURE (BEAKER) (test pzrf=1166) No growth LACTIC ACID, VENOUS, WHOLE [id number] 07:19:00 Test Item Value Reference Range Comments LACTATE BLOOD VENOUS (2) (BEAKER) (test 0.9 mmol/L 0.5-2.2 wuvq=8360) Effective 12/02/2015: Units/Reference Range ChangeNew: 0.5-2.2 mmol/L Previous: 5 -20 mg/dLBASIC METABOLIC [id number] 01:32:00 Test Item Value Reference Range Comments SODIUM (BEAKER) (test 132 meq/L 136-145 wrgt=116) POTASSIUM (BEAKER) (test 4.3 meq/L 3.5-5.1 hbco=109) CHLORIDE (BEAKER) (test 98 meq/L 98-107 ppax=558) CO2 (BEAKER) (test 25 meq/L 22-29 plwd=986) BLOOD UREA NITROGEN 20 mg/dL 7-21 (BEAKER) (test sgwu=695) CREATININE (BEAKER) (test 1.31 mg/dL 0.57-1.25 ieur=430) GLUCOSE RANDOM (BEAKER) 118 mg/dL 70-105 (test ntna=043) CALCIUM (BEAKER) (test 9.7 mg/dL 8.4-10.2 xsrd=715) EGFR (BEAKER) (test 54 mL/min/1.73 sq m ESTIMATED GFR IS NOT yhtq=8889) ACCURATE CREATININE CLEARANCE IN PREDICTING GLOMERULAR FILTRATION RATE. ESTIMATED GFR IS NOT APPLICABLE FOR DIALYSIS PATIENTS. LACTIC ACID, VENOUS, WHOLE [id number] 01:29:00 Test Item Value Reference Range Comments LACTATE BLOOD VENOUS (2) 2.6 mmol/L 0.5-2.2 Specimen slightly hemolyzed (BEAKER) (test zrce=9771) Effective 12/02/2015: Units/Reference Range ChangeNew: 0.5-2.2 mmol/L Previous: 5 -20 mg/dLCBC (HEMOGRAM ONLY)2017-02-09 01:21:00 Test Item Value Reference Range Comments WHITE BLOOD CELL COUNT (BEAKER) (test ffcb=018) 18.7 K/ L 4.0-10.0 RED BLOOD CELL COUNT (BEAKER) (test cfkp=180) 3.66 M/ L 4.20-5.80 HEMOGLOBIN (BEAKER) (test ksgs=848) 10.1 GM/DL 13.0-16.8 HEMATOCRIT (BEAKER) (test hzcv=314) 31.6 % 40.0-50.0 MEAN CORPUSCULAR VOLUME (BEAKER) (test tdrp=613) 86.1 fL 82.0-98.0 MEAN CORPUSCULAR HEMOGLOBIN (BEAKER) (test 27.5 pg 27.0-33.0 tkxp=890) MEAN CORPUSCULAR HEMOGLOBIN CONC (BEAKER) (test 31.9 GM/DL 32.0-36.0 ayll=274) RED CELL DISTRIBUTION WIDTH (BEAKER) (test 17.1 % 10.3-14.2 jfis=170) PLATELET COUNT (BEAKER) (test qssi=405) 281 K/CU MM 150-430 MEAN PLATELET VOLUME (BEAKER) (test osxf=075) 7.3 fL 6.5-10.5 NUCLEATED RED BLOOD CELLS (BEAKER) (test 0 /100 WBC 0-0 dtvr=922) 0.000.640.000.000.900.000.000.000.00CBC W/PLT COUNT & AUTO [id number] 11:38:00 Test Item Value Reference Range Comments WHITE BLOOD CELL COUNT (BEAKER) (test thgq=976) 11.1 K/ L 4.0-10.0 RED BLOOD CELL COUNT (BEAKER) (test uctg=402) 3.36 M/ L 4.20-5.80 HEMOGLOBIN (BEAKER) (test szqt=140) 9.6 GM/DL 13.0-16.8 HEMATOCRIT (BEAKER) (test orrh=871) 28.9 % 40.0-50.0 MEAN CORPUSCULAR VOLUME (BEAKER) (test rbkl=368) 85.8 fL 82.0-98.0 MEAN CORPUSCULAR HEMOGLOBIN (BEAKER) (test 28.6 pg 27.0-33.0 ewgz=403) MEAN CORPUSCULAR HEMOGLOBIN CONC (BEAKER) (test 33.3 GM/DL 32.0-36.0 idzs=512) RED CELL DISTRIBUTION WIDTH (BEAKER) (test 17.1 % 10.3-14.2 blol=177) PLATELET COUNT (BEAKER) (test xxmm=890) 286 K/CU MM 150-430 MEAN PLATELET VOLUME (BEAKER) (test oihh=635) 7.5 fL 6.5-10.5 NUCLEATED RED BLOOD CELLS (BEAKER) (test 0 /100 WBC 0-0 gynw=978) NEUTROPHILS RELATIVE PERCENT (BEAKER) (test 44 % vvrf=196) LYMPHOCYTES RELATIVE PERCENT (BEAKER) (test 20 % gxev=856) MONOCYTES RELATIVE PERCENT (BEAKER) (test 34 % sasu=136) EOSINOPHILS RELATIVE PERCENT (BEAKER) (test 2 % wloe=872) BASOPHILS RELATIVE PERCENT (BEAKER) (test 0 % eokf=601) NEUTROPHILS ABSOLUTE COUNT (BEAKER) (test 4.85 K/ L 1.80-8.00 lzbu=214) LYMPHOCYTES ABSOLUTE COUNT (BEAKER) (test 2.24 K/ L 1.48-4.50 jxar=923) MONOCYTES ABSOLUTE COUNT (BEAKER) (test 3.75 K/ L 0.00-1.30 vnzv=312) EOSINOPHILS ABSOLUTE COUNT (BEAKER) (test 0.17 K/ L 0.00-0.50 qtqd=267) BASOPHILS ABSOLUTE COUNT (BEAKER) (test 0.05 K/ L 0.00-0.20 znpg=579) 0.000.600.000.000.000.000.000.00(MANUAL DIFFERENTIAL)2017-02-08 11:38:00 Test Item Value Reference Range Comments TOTAL COUNTED (BEAKER) (test bvoh=4372) WBC MORPHOLOGY (BEAKER) (test phys=062) Normal PLT MORPHOLOGY (BEAKER) (test ifsa=196) Normal RBC MORPHOLOGY (BEAKER) (test psvm=778) Normal [id number] 09:47:00 Test Item Value Reference Range Comments FERRITIN (BEAKER) (test wfvr=384) 575 ng/mL 5-275 Effective 06/17/2014: Reference Range ChangeNew: Male 5-275 Previous: Male 22-322 Female 5-275 Female [id number] 05:39: 00 Test Item Value Reference Range Comments PHOSPHORUS (BEAKER) (test xkxt=268) 3.9 mg/dL 2.3-4.7 [id number] 05:39:00 Test Item Value Reference Range Comments MAGNESIUM (BEAKER) (test rsxf=435) 2.2 mg/dL 1.6-2.6 BASIC METABOLIC [id number] 05:39:00 Test Item Value Reference Range Comments SODIUM (BEAKER) (test 135 meq/L 136-145 qbmj=009) POTASSIUM (BEAKER) (test 4.7 meq/L 3.5-5.1 wbws=085) CHLORIDE (BEAKER) (test 102 meq/L 98-107 syli=183) CO2 (BEAKER) (test 27 meq/L 22-29 aris=391) BLOOD UREA NITROGEN 17 mg/dL 7-21 (BEAKER) (test zxli=784) CREATININE (BEAKER) (test 1.28 mg/dL 0.57-1.25 rwbz=832) GLUCOSE RANDOM (BEAKER) 118 mg/dL 70-105 (test pzsc=547) CALCIUM (BEAKER) (test 9.4 mg/dL 8.4-10.2 oxak=578) EGFR (BEAKER) (test 55 mL/min/1.73 sq m ESTIMATED GFR IS NOT avov=5558) ACCURATE CREATININE CLEARANCE IN PREDICTING GLOMERULAR FILTRATION RATE. ESTIMATED GFR IS NOT APPLICABLE FOR DIALYSIS PATIENTS. HEPATIC FUNCTION [id number] 05:39:00 Test Item Value Reference Range Comments TOTAL PROTEIN (BEAKER) (test ojql=797) 7.0 gm/dL 6.0-8.3 ALBUMIN (BEAKER) (test btot=7336) 2.9 g/dL 3.5-5.0 BILIRUBIN TOTAL (BEAKER) (test iiqf=639) 0.5 mg/dL 0.2-1.2 BILIRUBIN DIRECT (BEAKER) (test kunq=521) 0.3 mg/dL 0.1-0.5 ALKALINE PHOSPHATASE (BEAKER) (test jezq=551) 73 U/L 40-150 AST (SGOT) (BEAKER) (test jdrb=946) 11 U/L 5-34 ALT (SGPT) (BEAKER) (test sanx=823) 7 U/L 6-55 SEDIMENTATION [id number] 12:08:00 Test Item Value Reference Range Comments SEDIMENTATION RATE, ERYTHROCYTE (BEAKER) (test 101 mm/HR 0-40 gvwf=707) CBC W/PLT COUNT & AUTO [id number] 10:43:00 Test Item Value Reference Range Comments WHITE BLOOD CELL COUNT (BEAKER) (test rpfg=870) 8.0 K/ L 4.0-10.0 RED BLOOD CELL COUNT (BEAKER) (test zody=778) 3.54 M/ L 4.20-5.80 HEMOGLOBIN (BEAKER) (test htiq=535) 10.1 GM/DL 13.0-16.8 HEMATOCRIT (BEAKER) (test usom=210) 30.1 % 40.0-50.0 MEAN CORPUSCULAR VOLUME (BEAKER) (test mnft=629) 85.1 fL 82.0-98.0 MEAN CORPUSCULAR HEMOGLOBIN (BEAKER) (test 28.4 pg 27.0-33.0 iiwp=486) MEAN CORPUSCULAR HEMOGLOBIN CONC (BEAKER) (test 33.4 GM/DL 32.0-36.0 tkpv=971) RED CELL DISTRIBUTION WIDTH (BEAKER) (test 17.3 % 10.3-14.2 brgt=301) PLATELET COUNT (BEAKER) (test dvaz=124) 296 K/CU MM 150-430 MEAN PLATELET VOLUME (BEAKER) (test afoy=168) 7.4 fL 6.5-10.5 NUCLEATED RED BLOOD CELLS (BEAKER) (test 0 /100 WBC 0-0 poxo=235) NEUTROPHILS RELATIVE PERCENT (BEAKER) (test 47 % igbu=459) LYMPHOCYTES RELATIVE PERCENT (BEAKER) (test 17 % qkbq=787) MONOCYTES RELATIVE PERCENT (BEAKER) (test 34 % zwdd=269) EOSINOPHILS RELATIVE PERCENT (BEAKER) (test 1 % lrkm=478) BASOPHILS RELATIVE PERCENT (BEAKER) (test 0 % znzo=461) NEUTROPHILS ABSOLUTE COUNT (BEAKER) (test 3.77 K/ L 1.80-8.00 kdqv=697) LYMPHOCYTES ABSOLUTE COUNT (BEAKER) (test 1.37 K/ L 1.48-4.50 kcwt=204) MONOCYTES ABSOLUTE COUNT (BEAKER) (test 2.69 K/ L 0.00-1.30 wxrd=528) EOSINOPHILS ABSOLUTE COUNT (BEAKER) (test 0.11 K/ L 0.00-0.50 yoki=811) BASOPHILS ABSOLUTE COUNT (BEAKER) (test 0.04 K/ L 0.00-0.20 tqob=989) 0.000.520.000.000.000.000.000.00(MANUAL DIFFERENTIAL)2017-02-07 10:43:00 Test Item Value Reference Range Comments TOTAL COUNTED (BEAKER) (test pyof=8252) WBC MORPHOLOGY (BEAKER) (test rgsq=392) Normal LARGE PLT(BEAKER) (test ksxg=9122) Present POLYCHROMATOPHILLIC RBCS(BEAKER) (test ictd=439) 1+ few HEMOGLOBIN [id number] 10:11:00 Test Item Value Reference Range Comments HEMOGLOBIN A1C (BEAKER) (test rqrs=249) 5.4 % 4.3-6.1 VITAMIN [id number] 06:49:00 Test Item Value Reference Range Comments VITAMIN B12 (BEAKER) (test rgds=027) 266 pg/mL 213-816 TSH/FREE T4 IF [id number] 06:49:00 Test Item Value Reference Range Comments THYROID STIMULATING HORMONE (BEAKER) (test 2.93 uIU/mL 0.35-4.94 srwh=841) CREATINE KINASE (CK), TOTAL AND [id number] 06:40:00 Test Item Value Reference Range Comments CREATINE KINASE TOTAL (BEAKER) (test twwc=904) 18 U/L 29-200 CREATINE KINASE-MB (BEAKER) (test qjxh=763) 0.6 ng/mL 0.0-6.6 CREATINE KINASE-MB INDEX (BEAKER) (test mpks=848) 3.3 % Effective 06/17/2014: CK-MB Reference Range ChangeNew: 0.0-6.6 Previous: 0.0- 4.9CK-MB Reference Range:<6.7 Normal6.7-10.0 Borderline>10.0 AbnormalTROPONIN [id number] 06:37:00 Test Item Value Reference Range Comments TROPONIN I (BEAKER) (test zgkw=139) < ng/mL 0.00-0.03 Effective 06/17/2014: Reference Range ChangeNew: 0.00-0.03 Previous 0.00- 0.15Troponin I (TnI) levels must be interpreted in the context of the presenting symptoms and the clinical findings. Elevated TnI levels indicate myocardial damage, but are not specific for ischemic heart disease. Elevated TnI levels are seen in patients with other cardiac conditions (including myocarditis and congestive heartfailure), and slight TnI elevations occur in patients with other conditions, including sepsis, renalfailure, acidosis, acute neurological disease, and persistent tachyarrhythmia.[id number] 06:30: 00 Test Item Value Reference Range Comments PHOSPHORUS (BEAKER) (test gnbs=228) 3.5 mg/dL 2.3-4.7 [id number] 06:30:00 Test Item Value Reference Range Comments MAGNESIUM (BEAKER) (test bkvq=704) 1.9 mg/dL 1.6-2.6 BASIC METABOLIC [id number] 06:30:00 Test Item Value Reference Range Comments SODIUM (BEAKER) (test 135 meq/L 136-145 kfkx=262) POTASSIUM (BEAKER) (test 3.9 meq/L 3.5-5.1 hxuw=626) CHLORIDE (BEAKER) (test 101 meq/L 98-107 jwht=960) CO2 (BEAKER) (test 23 meq/L 22-29 vdaw=741) BLOOD UREA NITROGEN 14 mg/dL 7-21 (BEAKER) (test jeps=203) CREATININE (BEAKER) (test 1.13 mg/dL 0.57-1.25 drpi=654) GLUCOSE RANDOM (BEAKER) 94 mg/dL 70-105 (test vtmb=122) CALCIUM (BEAKER) (test 9.4 mg/dL 8.4-10.2 tewx=187) EGFR (BEAKER) (test 64 mL/min/1.73 sq m ESTIMATED GFR IS NOT nhcs=5170) ACCURATE CREATININE CLEARANCE IN PREDICTING GLOMERULAR FILTRATION RATE. ESTIMATED GFR IS NOT APPLICABLE FOR DIALYSIS PATIENTS. LIPID [id number] 06:30:00 Test Item Value Reference Range Comments TRIGLYCERIDES (BEAKER) (test uwph=829) 78 mg/dL CHOLESTEROL (BEAKER) (test dqil=854) 115 mg/dL HDL CHOLESTEROL (BEAKER) (test sqwz=492) 38 mg/dL LDL CHOLESTEROL CALCULATED (BEAKER) (test 61 mg/dL rdmb=690) Triglyceride Reference Range: Low Risk <150 Borderline 150- 199 High Risk 200-499 Very High Risk >=500Cholesterol Reference Range: Low Risk <200 Borderline 200-239 High Risk > 240HDL Cholesterol Reference Range: Low Risk >=60 High Risk <40LDL Cholesterol Reference Range: Optimal <100 Near Optimal 100-129 Borderline 130-159 High 160-189 Very High >=190HEPATIC FUNCTION [id number] 06:30:00 Test Item Value Reference Range Comments TOTAL PROTEIN (BEAKER) (test jvmn=558) 7.3 gm/dL 6.0-8.3 ALBUMIN (BEAKER) (test eeia=4130) 3.1 g/dL 3.5-5.0 BILIRUBIN TOTAL (BEAKER) (test njdq=721) 0.5 mg/dL 0.2-1.2 BILIRUBIN DIRECT (BEAKER) (test rgls=670) 0.4 mg/dL 0.1-0.5 ALKALINE PHOSPHATASE (BEAKER) (test bmzt=513) 72 U/L 40-150 AST (SGOT) (BEAKER) (test pnsp=319) 10 U/L 5-34 ALT (SGPT) (BEAKER) (test dapr=018) 9 U/L 6-55 C-REACTIVE [id number] 06:30:00 Test Item Value Reference Range Comments C-REACTIVE PROTEIN (BEAKER) (test zcmz=129) 13.33 mg/dL 0.00-0.50 (MANUAL DIFFERENTIAL)2017-02-07 01:54:00 Test Item Value Reference Range Comments NEUTROPHILS - REL (DIFF) (BEAKER) (test spkn=2896) 57 % LYMPHOCYTES - REL (DIFF) (BEAKER) (test dfjo=7154) 11 % MONOCYTES - REL (DIFF) (BEAKER) (test rskk=5193) 24 % EOSINOPHILS - REL (DIFF) (BEAKER) (test qlyy=4697) 1 % BASOPHILS - REL (DIFF) (BEAKER) (test gqqp=2237) 1 % BANDS - REL (DIFF) (BEAKER) (test wpdv=6057) 6 % 0-10 NEUTROPHILS - ABS (DIFF) (BEAKER) (test zttw=1479) 5.70 K/ L 1.80-8.00 LYMPHOCYTES - ABS (DIFF) (BEAKER) (test mrag=3958) 1.10 K/ L 1.48-4.50 MONOCYTES - ABS (DIFF) (BEAKER) (test hhnk=9182) 2.40 K/ L 0.00-1.30 EOSINOPHILS - ABS (DIFF) (BEAKER) (test lxke=6922) 0.10 K/ L 0.00-0.50 BASOPHILS - ABS (DIFF) (BEAKER) (test dneq=4262) 0.10 K/ L 0.00-0.20 BANDS-ABS (DIFF) (BEAKER) (test wpyy=6469) 0.6 K/ L 0.0-0.8 TOTAL COUNTED (BEAKER) (test ddqf=9725) 100 BANDS + SEGMENTED NEUTROPHILS (BEAKER) (test 6.30 yxgi=5711) WBC MORPHOLOGY (BEAKER) (test lwxf=687) Normal LARGE PLT(BEAKER) (test fvjo=2528) Present ANISOCYTOSIS (BEAKER) (test hghf=021) 1+ few POLYCHROMATOPHILLIC RBCS(BEAKER) (test fnex=116) 1+ few CBC W/PLT COUNT & AUTO [id number] 23:52:00 Test Item Value Reference Range Comments WHITE BLOOD CELL COUNT (BEAKER) (test dtkg=221) 10.0 K/ L 4.0-10.0 RED BLOOD CELL COUNT (BEAKER) (test tsdp=494) 3.34 M/ L 4.20-5.80 HEMOGLOBIN (BEAKER) (test xnol=329) 9.4 GM/DL 13.0-16.8 HEMATOCRIT (BEAKER) (test hiyd=799) 28.4 % 40.0-50.0 MEAN CORPUSCULAR VOLUME (BEAKER) (test pwog=264) 85.2 fL 82.0-98.0 MEAN CORPUSCULAR HEMOGLOBIN (BEAKER) (test 28.0 pg 27.0-33.0 svvv=567) MEAN CORPUSCULAR HEMOGLOBIN CONC (BEAKER) (test 32.9 GM/DL 32.0-36.0 hgrk=843) RED CELL DISTRIBUTION WIDTH (BEAKER) (test 16.1 % 10.3-14.2 xtmr=824) PLATELET COUNT (BEAKER) (test tgau=429) 312 K/CU MM 150-430 MEAN PLATELET VOLUME (BEAKER) (test xbht=714) 7.3 fL 6.5-10.5 NUCLEATED RED BLOOD CELLS (BEAKER) (test 0 /100 WBC 0-0 nvuj=773) 0.000.560.000.000.000.000.000.00URINALYSIS W/ [id number] 23:36:00 Test Item Value Reference Range Comments COLOR (BEAKER) (test gawy=146) Red CLARITY (BEAKER) (test pglf=772) Turbid SPECIFIC GRAVITY UA (BEAKER) (test nwbf=700) 1.015 1.001-1.035 PH UA (BEAKER) (test qkso=185) 5.5 5.0-8.0 PROTEIN UA (BEAKER) (test jvdz=957) >=300 mg/dL Negative GLUCOSE UA (BEAKER) (test vdav=576) 100 mg/dL Negative KETONES UA (BEAKER) (test mnwm=126) 15 mg/dL Negative BILIRUBIN UA (BEAKER) (test awqt=399) Positive Negative BLOOD UA (BEAKER) (test lyup=139) Large Negative NITRITE UA (BEAKER) (test fbwz=573) Negative Negative LEUKOCYTE ESTERASE UA (BEAKER) (test eoww=379) Large Negative UROBILINOGEN UA (BEAKER) (test wrot=277) >=mg/dL 0.2-1.0 BACTERIA (BEAKER) (test tkzg=627) Moderate MUCUS (BEAKER) (test ehib=3068) Moderate AMORPHOUS CRYSTALS (BEAKER) (test fcxh=2937) Many RBC UA-MANUAL (BEAKER) (test epeb=5962) >100 /HPF WBC UA-MANUAL (BEAKER) (test ewcf=0208) 20-50 /HPF SQUAMOUS EPITHELIAL MANUAL (BEAKER) (test <5 /HPF jhcc=0451) SOURCE(BEAKER) (test ojxi=9340) [id number] 23:11:00 Test Item Value Reference Range Comments PROTIME (BEAKER) (test mdvb=939) 12.3 seconds 9.8-12.0 INR (BEAKER) (test ktjp=290) 1.2 <=5.9 PARTIAL THROMBOPLASTIN TIME (BEAKER) (test 27.6 seconds 25.8-34.5 sucb=125) RECOMMENDED COUMADIN/WARFARIN INR THERAPY RANGESSTANDARD DOSE: 2.0 - 3.0 Includes: PROPHYLAXIS forvenous thrombosis, systemic embolization; TREATMENT for venous thrombosis and/or pulmonary embolus.HIGH RISK: Target INR is 2.5-3.5 for patients with mechanical heart valves.BASIC METABOLIC [id number] 23:08: 00 Test Item Value Reference Range Comments SODIUM (BEAKER) (test 134 meq/L 135-148 pflk=961) POTASSIUM (BEAKER) (test 4.1 meq/L 3.6-5.5 dwbn=542) CHLORIDE (BEAKER) (test 96 meq/L 98-106 yvxn=028) CO2 (BEAKER) (test 26 meq/L 24-32 godd=527) BLOOD UREA NITROGEN 14 mg/dL 10-26 (BEAKER) (test dqwh=200) CREATININE (BEAKER) (test 1.26 mg/dL 0.50-1.20 meli=843) GLUCOSE RANDOM (BEAKER) 108 mg/dL 70-110 (test bnif=994) CALCIUM (BEAKER) (test 9.4 mg/dL 8.5-10.5 ekui=914) EGFR (BEAKER) (test 56 mL/min/1.73 sq m ESTIMATED GFR IS NOT yuom=9332) ACCURATE CREATININE CLEARANCE IN PREDICTING GLOMERULAR FILTRATION RATE. ESTIMATED GFR IS NOT APPLICABLE FOR DIALYSIS PATIENTS.
--- NOTE | 2018-01-17 16:15 | RAD REPORT ---
EXAM DESCRIPTION: CT - Head Brain Wo Cont - 01/17/2018 4:06 pm CLINICAL HISTORY: Dizziness and weakness COMPARISON: April 2017 TECHNIQUE: Computed axial tomography of the head was obtained. IV contrast was not requested. All CT scans are performed using dose optimization technique as appropriate and may include automated exposure control or mA/KV adjustment according to patient size. FINDINGS: An intracranial bleed is not seen . The ventricles are normal in caliber. No extra-axial fluid collection is noted. Scalp lesions are unchanged Fluid within the sinuses/ mastoids is not seen. IMPRESSION: No acute intracranial abnormality is seen. If patient's symptoms persist MRI of the bra in would be recommended.
[2018-01-17 16:25] LABS: Absolute Lymphocytes (CBC) 1.9 K/uL (0.7-4.9); Absolute Monocytes 9.2 K/uL (0.1-1.3); Absolute Neutrophil 8.4 K/uL (1.8-8.0); Basophils % 0.6 % (0-1.3); Eosinophils % 0.5 % (0-4.4); Hematocrit 32.6 % (39.6-49.0); Lymphocytes % 9.7 % (15.3-44.8); MCH 29.3 pg (27.0-35.0); MPV 9.9 fL (7.6-11.3); Monocytes % 46.5 % (3.3-12.3); RBC Red Blood Cell Count 3.58 M/uL (4.33-5.43)
[2018-01-17 16:28] LABS: Protime INR 1.52
[2018-01-17 17:06] LABS: Blood Morphology Comment NOT SEEN (NOT SEEN); Platelet Estimate ADEQ
[2018-01-17 17:22] LABS: Albumin 2.6 g/dL (3.4-5.0); Bilirubin Direct 0.5 mg/dL (0-0.2); Bilirubin Total 1.1 mg/dL (0.2-1.0); Magnesium 2.2 mg/dL (1.8-2.4); Potassium 4.8 mmol/L (3.5-5.1); Protein, Total 7.6 g/dL (6.4-8.2)
--- NOTE | 2018-01-17 18:38 | ER ---
Nurse's Notes [facility] Name: Shan Aguirre Age: 72 yrs Sex: Male : 1945 Arrival Date: 01/17/2018 Time: 15:05 Bed 28 Private MD: Diagnosis: Weakness Presentation: 01/17 15:08 Presenting complaint: EMS states: General weakness, was unable to get self up from mb3 toilet, slid off to floor. Weak and hasn't eaten in 2 days, "just doesn't feel like eating". Transition of care: patient was not received from another setting of care. Onset of symptoms is unknown. Risk Assessment: Do you want to hurt yourself or someone else? Patient reports no desire to harm self or others. Initial Sepsis Screen: Does the patient meet any 2 criteria? No. Patient's initial sepsis screen is negative. Does the patient have a suspected source of infection? No. Patient's initial sepsis screen is negative. Care prior to arrival: IV initiated. 20 GA, in the left antecubital area. 15:08 Method Of Arrival: EMS: [facility] mb3 15:08 Acuity: SHRADDHA 3 mb3 Triage Assessment: 15:15 General: Appears in no apparent distress. well groomed, Behavior is calm, cooperative, mb3 appropriate for age. Pain: Denies pain. EENT: No deficits noted. No signs and/or symptoms were reported regarding the EENT system. Neuro: Level of Consciousness is awake, alert, obeys commands, Oriented to person, place, time, situation, Appropriate for age [place] are equal bilaterally Moves all extremities. Full function Weakness Reports weakness. Cardiovascular: No deficits noted. Heart tones present Capillary refill < 3 seconds Patient's skin is warm and dry. Pulses are all present. Respiratory: No deficits noted. Airway is patent Respiratory effort is even, unlabored, Respiratory pattern is regular, symmetrical, Breath sounds are clear bilaterally. GI: No deficits noted. No signs and/or symptoms were reported involving the gastrointestinal system. Abdomen is flat, Bowel sounds present X 4 quads. Abd is soft and non tender. : No deficits noted. No signs and/or symptoms were reported regarding the genitourinary system. Derm: No deficits noted. No signs and/or symptoms reported regarding the dermatologic system. Musculoskeletal: No deficits noted. No signs and/or symptoms reported regarding the musculoskeletal system. Historical: - Allergies: 15:14 No Known Allergies; mb3 - Home Meds: 15:14 Metoprolol Tartrate Oral [Active]; amlodipine oral [Active]; aspirin 81 mg Oral TbEC mb3 once daily [Active]; probiotics [Active]; - PMHx: 15:14 CVA; Hypertension; Kidney Mass; mb3 - PSHx: 15:14 Kidney removed; mb3 - Immunization history:: Adult Immunizations not immunized. - Social history:: Smoking status: Patient/guardian denies using tobacco, never smoked. - Ebola Screening: : Patient denies travel to an Ebola-affected area in the 21 days before illness onset No symptoms or risks identified at this time. - Family history:: not pertinent. - Hospitalizations: : No recent hospitalization is reported. Screenin:17 Abuse screen: Denies threats or abuse. Nutritional screening: No deficits noted. mb3 Tuberculosis screening: No symptoms or risk factors identified. Fall Risk Fall in past 12 months (25 points). Secondary diagnosis (15 points) IV access (20 points). Ambulatory Aid- None/Bed Rest/Nurse Assist (0 pts). Gait- Impaired (20 pts.). Mental Status- Oriented to own ability (0 pts). Total [place] Fall Scale indicates High Risk Score (45 or more points). Fall prevention measures have been instituted. Side Rails Up X 2 Placed Close to Nursing Station Frequent Obs/Assessments Occuring As available patient and family educated on Fall Prevention Program and Strategies. Assessment: 15:17 Reassessment: see triage assessment. mb3 16:17 Reassessment: No changes from previously documented assessment. Patient and/or family mb3 updated on plan of care and expected duration. Pain level reassessed. Patient is alert, oriented x 3, equal unlabored respirations, skin warm/dry/pink. 17:19 Reassessment: No changes from previously documented assessment. Patient and/or family mb3 updated on plan of care and expected duration. Pain level reassessed. Patient is alert, oriented x 3, equal unlabored respirations, skin warm/dry/pink. Vital Signs: 15:10 BP 123 / 63 RA Sitting (auto/reg); Pulse 111 LA; Resp 20 S; Temp 98.7(O); Pulse Ox 93% mb3 on R/A; Weight 83.91 kg; Height 5 ft. 9 in. (175.26 cm); Pain 0/10; 15:40 BP 125 / 65; Pulse 108; Resp 20; Pulse Ox 94% on R/A; mt 16:16 BP 112 / 92; Pulse 106; Resp 20; Pulse Ox 92% on R/A; mb3 17:18 BP 131 / 70; Pulse 105; Resp 22; Pulse Ox 93% on R/A; mb3 18:45 BP 130 / 69; Pulse 109; Resp 18; Pulse Ox 94% on R/A; mt 19:51 BP 124 / 91; Pulse 113; Resp 20; Pulse Ox 94% on R/A; mb3 15:10 Body Mass Index 27.32 (83.91 kg, 175.26 cm) mb3 ED Course: 15:05 Patient arrived in ED. em1 15:08 Femi Gonzalez, RN is Primary Nurse. mb3 15:10 Triage completed. mb3 15:18 Maintain EMS IV. Dressing intact. Site clean \\T\\ dry. Gauge \\T\\ site: 20ga LAC. Flushed mb 3 left antecubital. 15:18 Patient has correct armband on for positive identification. Placed in gown. Bed in low mb3 position. Call light in reach. Side rails up X 1. garde manager on. Pulse ox on. NIBP on. 15:18 Arm band placed on right wrist. mb3 15:35 Zenon Chandler MD is Attending Physician. wa 16:[address] via stretcher. 2 16:04 CT completed. Patient moved back from CT. 2 16:04 EKG done, by drafting technician. reviewed by Zenon Chandler MD. 3 16:06 CT Head Brain wo Cont In Process Unspecified. EDMS 17:53 X-ray completed. Portable x-ray completed in exam room. Patient tolerated procedure ml well. 17:54 Chest Single View XRAY In Process Unspecified. EDMS 18:37 Lawrence Olson MD is Hospitalizing Provider. wa 20:05 No provider procedures requiring assistance completed. Patient admitted, IV remains in mb3 place. Administered Medications: 18:45 Drug: Decadron - Dexamethasone 10 mg Route: IVP; Site: left antecubital; mb3 20:03 Follow up: Response: No adverse reaction mb3 18:45 Drug: NS 0.9% 1000 ml Route: IV; Rate: 1 bolus; Site: left antecubital; mb3 20:02 Follow up: Response: No adverse reaction; IV Status: Completed infusion; IV Intake: mb3 500ml Point of Care Testing: Blood Glucose: 16:16 Blood Glucose: 126 mg/dL; mb3 Ranges: Intake: 20:02 IV: 500ml; Total: 500ml. mb3 Outcome: 18:37 Decision to Hospitalize by Provider. al 20:04 Admitted to Med/surg accompanied by santiago, family with patient, room 202, with chart, mb3 Other Antoine Robles RN 20:05 Condition: stable mb3 20:05 Instructed on the need for admit. 20:24 Patient left the ED. mb3 Signatures: Dispatcher [employer] Georgia Vasquez Eric em1 Mervat Ojeda2 Lakisha Hendrix mt, William, MD MD wa Barnett, Mark, RN RN mb3 Claudia White 3
--- NOTE | 2018-01-17 18:38 | EDPHYS ---
Physician Documentation [facility] Name: Shan Aguirre Age: 72 yrs Sex: Male : 1945 Arrival Date: 01/17/2018 Time: 15:05 Bed 28 Private MD: ED Physician Zenon Chandler HPI: 01/17 17:54 This 72 yrs old Male presents to ER via EMS with complaints of General wa Weakness. 17:54 The patient's problem is reported as weakness, that is generalized, generalized wa weakness. also joint pains. Onset: The symptoms/episode began/occurred 3 week(s) ago. Duration: The episode is continuous. Context: Possible contributing factors include: unknown. The symptoms are alleviated by nothing. The symptoms are aggravated by nothing. Associated signs and symptoms: Pertinent positives: shortness of breath, weakness, Pertinent negatives: abdominal pain, blurred vision, chest pain, diaphoresis, dizziness, headache, lightheadedness, nausea, numbness, palpitations, seizure, vomiting. Severity of symptoms: At their worst the symptoms were moderate in the emergency department the symptoms are worse moderately. Patient's baseline: Neuro: alert and fully oriented, Motor: no deficits, Ambulation: walks without assistance, Speech: normal. The patient has not experienced similar symptoms in the past. The patient has not recently seen a physician. Historical: - Allergies: 15:14 No Known Allergies; mb3 - Home Meds: 15:14 Metoprolol Tartrate Oral [Active]; amlodipine oral [Active]; aspirin 81 mg Oral TbEC mb3 once daily [Active]; probiotics [Active]; - PMHx: 15:14 CVA; Hypertension; Kidney Mass; mb3 - PSHx: 15:14 Kidney removed; mb3 - Immunization history:: Adult Immunizations not immunized. - Social history:: Smoking status: Patient/guardian denies using tobacco, never smoked. - Ebola Screening: : Patient denies travel to an Ebola-affected area in the 21 days before illness onset No symptoms or risks identified at this time. - Family history:: not pertinent. - Hospitalizations: : No recent hospitalization is reported. ROS: 17:57 Constitutional: Negative for fever, chills, and weight loss, Eyes: Negative for injury, wa pain, redness, and discharge, ENT: Negative for injury, pain, and discharge, Neck: Negative for injury, pain, and swelling, Cardiovascular: Negative for chest pain, palpitations, and edema, Respiratory: Negative for shortness of breath, cough, wheezing, and pleuritic chest pain, Abdomen/GI: Negative for abdominal pain, nausea, vomiting, diarrhea, and constipation, Back: Negative for injury and pain, : Negative for injury, bleeding, discharge, and swelling, Skin: Negative for injury, rash, and discoloration, Psych: Negative for depression, anxiety, suicide ideation, homicidal ideation, and hallucinations. 17:57 MS/extremity: Positive for pain, of the multiple joints. , Negative for swelling. 17:57 All other systems are negative. Exam: 17:58 Constitutional: This is a well developed, well nourished patient who is awake, alert, wa and in no acute distress. Head/Face: Normocephalic, atraumatic. Eyes: Pupils equal round and reactive to light, extra-ocular motions intact. Lids and lashes normal. Conjunctiva and sclera are non-icteric and not injected. Cornea within normal limits. Periorbital areas with no swelling, redness, or edema. ENT: Nares patent. No nasal discharge, no septal abnormalities noted. Tympanic membranes are normal and external auditory canals are clear. Oropharynx with no redness, swelling, or masses, exudates, or evidence of obstruction, uvula midline. Mucous membranes moist. Neck: Trachea midline, no thyromegaly or masses palpated, and no cervical lymphadenopathy. Supple, full range of motion without nuchal rigidity, or vertebral point tenderness. No Meningismus. Chest/axilla: Normal chest wall appearance and motion. Nontender with no deformity. No lesions are appreciated. Cardiovascular: Regular rate and rhythm with a normal S1 and S2. No gallops, murmurs, or rubs. Normal PMI, no JVD. No pulse deficits. Respiratory: Lungs have equal breath sounds bilaterally, clear to auscultation and percussion. No rales, rhonchi or wheezes noted. No increased work of breathing, no retractions or nasal flaring. Abdomen/GI: Soft, non-tender, with normal bowel sounds. No distension or tympany. No guarding or rebound. No evidence of tenderness throughout. Back: No spinal tenderness. No costovertebral tenderness. Full range of motion. Skin: Warm, dry with normal turgor. Normal color with no rashes, no lesions, and no evidence of cellulitis. MS/ Extremity: Pulses equal, no cyanosis. Neurovascular intact. Full, normal range of motion. Psych: Awake, alert, with orientation to person, place and time. Behavior, mood, and affect are within normal limits. 17:58 Neuro: Cranial nerves: grossly normal, appears generally weak. however moves all extremities symmetrically.. 18:39 Radiologist reports: nml. no acute process wa Vital Signs: 15:10 BP 123 / 63 RA Sitting (auto/reg); Pulse 111 LA; Resp 20 S; Temp 98.7(O); Pulse Ox 93% mb3 on R/A; Weight 83.91 kg; Height 5 ft. 9 in. (175.26 cm); Pain 0/10; 15:40 BP 125 / 65; Pulse 108; Resp 20; Pulse Ox 94% on R/A; mt 16:16 BP 112 / 92; Pulse 106; Resp 20; Pulse Ox 92% on R/A; mb3 17:18 BP 131 / 70; Pulse 105; Resp 22; Pulse Ox 93% on R/A; mb3 18:45 BP 130 / 69; Pulse 109; Resp 18; Pulse Ox 94% on R/A; mt 19:51 BP 124 / 91; Pulse 113; Resp 20; Pulse Ox 94% on R/A; mb3 15:10 Body Mass Index 27.32 (83.91 kg, 175.26 cm) mb3 MDM: 15:35 Patient medically screened. sd 17:59 Differential diagnosis: CVA, TIA, metabolic disorder. sd 17:59 Data reviewed: vital signs, nurses notes, lab test result(s), EKG, radiologic studies. wa Test interpretation: by ED physician or midlevel provider: EKG: HR 109. sinus tach. low voltage. non-specific ST-T changes. 18:36 Physician consultation: Lawrence Olson MD. Admission orders: after a detailed discussion sd of the patient's condition and case, the admit orders are written by vt. 18:55 Test interpretation: by ED physician or midlevel provider: CXR read as mild volume wa overload. 01/17 15:52 Order name: Urine Microscopic Only sd 01/17 15:52 Order name: Basic Metabolic Panel; Complete Time: 18:03 sd 01/17 15:52 Order name: CBC with Diff; Complete Time: 18:03 sd 01/17 15:52 Order name: CPK; Complete Time: 18:03 sd 01/17 15:52 Order name: Hepatic Function; Complete Time: 18:03 sd 01/17 15:52 Order name: Lipase; Complete Time: 18:03 sd 01/17 15:52 Order name: Magnesium; Complete Time: 18:04 sd 01/17 15:52 Order name: Protime (+inr); Complete Time: 16:51 sd 01/17 15:52 Order name: Troponin (emerg Dept Use Only); Complete Time: 18:04 sd 01/17 16:37 Order name: Manual Differential; Complete Time: 18:03 EDHI 01/17 18:56 Order name: BNP sd 01/17 19:37 Order name: Urine Dipstick--Ancillary (enter results) 01/17 20:06 Order name: Urine Dipstick-Ancillary EDHI 01/17 15:52 Order name: CT Head Brain wo Cont; Complete Time: 16:51 sd 01/17 15:52 Order name: EKG; Complete Time: 15:53 sd 01/17 15:52 Order name: Cardiac monitoring; Complete Time: 15:53 sd 01/17 15:52 Order name: EKG - Nurse/Tech; Complete Time: 15:54 sd 01/17 15:52 Order name: IV Saline Lock; Complete Time: 15:54 sd 01/17 15:52 Order name: Labs collected and sent; Complete Time: 16:42 sd 01/17 15:52 Order name: NPO; Complete Time: 15:54 sd 01/17 15:52 Order name: O2 Per Protocol; Complete Time: 15:54 sd 01/17 15:52 Order name: O2 Sat Monitoring; Complete Time: 15:54 sd 01/17 15:53 Order name: Accucheck; Complete Time: 16:42 sd 01/17 16:51 Order name: Chest Single View XRAY; Complete Time: 18:55 sd Administered Medications: 18:45 Drug: Decadron - Dexamethasone 10 mg Route: IVP; Site: left antecubital; mb3 20:03 Follow up: Response: No adverse reaction mb3 18:45 Drug: NS 0.9% 1000 ml Route: IV; Rate: 1 bolus; Site: left antecubital; mb3 20:02 Follow up: Response: No adverse reaction; IV Status: Completed infusion; IV Intake: mb3 500ml Point of Care Testing: Blood Glucose: 16:16 Blood Glucose: 126 mg/dL; mb3 Ranges: Critical Glucose Levels:Adult <50 mg/dl or >400 mg/dl <40 mg/dl or >180 mg/dl Disposition: 01/17/18 18:37 Hospitalization ordered by Lawrence Olson for Observation. Preliminary diagnosis is Weakness. - Bed requested for Telemetry/MedSurg (observation). - Status is Observation. mb3 - Condition is Stable. - Problem is new. - Symptoms have improved. UTI on Admission? No Signatures: Dispatcher [employer] EDHI Sandra Mack, CONTENT ANALYST-C CONTENT ANALYST-Csnw Loy Mclain, EARLY CHILDHOOD ASSOCIATE EARLY CHILDHOOD ASSOCIATE pm1 Zenon Chandler MD MD wa Botello, Elizabeth eb Barnett, Mark, RN RN mb3 Corrections: (The following items were deleted from the chart) 16:37 16:33 CBC Smear Scan ordered. EDHI EDHI 18:52 18:37 Hospitalization Ordered by Lawrence Olson MD for Observation. Preliminary eb diagnosis is Weakness. Bed requested for Telemetry/MedSurg (observation). Status is Observation. Condition is Stable. Problem is new. Symptoms have improved. UTI on Admission? No. wa 19:18 18:52 01/17/2018 18:37 Hospitalization Ordered by Lawrence Olson MD for Observation. pm1 Preliminary diagnosis is Weakness. Bed requested for Telemetry/MedSurg (observation). Status is Observation. Condition is Stable. Problem is new. Symptoms have improved. UTI on Admission? No. eb 20:24 19:18 01/17/2018 18:37 Hospitalization Ordered by Lawrence Olson MD for Observation. mb3 Preliminary diagnosis is Weakness. Bed requested for Telemetry/MedSurg (observation). Status is Observation. Condition is Stable. Problem is new. Symptoms have improved. UTI on Admission? No. pm1
[2018-01-17] MEDS ORDERED: DEXAMETHASONE 10 MG/ML VIAL ONE (18:39)
[2018-01-17] MEDS ORDERED: NA CHLORIDE 0.9% 1,000 ML ONE (18:42)
--- NOTE | 2018-01-17 18:51 | RAD REPORT ---
EXAM DESCRIPTION: RAD - Chest Single View - 01/17/2018 5:54 pm CLINICAL HISTORY: Weakness, shortness of breath, cough COMPARISON: January 2017 TECHNIQUE: AP portable chest image was obtained 1751 hours . FINDINGS: No peripheral mass or consolidation. Interstitial markings are prominent, increased slight ly from prior imaging. Cardiac silhouette has enlarged and there is greater vascular engorgement. Tra indigo is midline. Small left pleural effusion is likely. No gross bony abnormality seen. No acute aort ic findings suspected. IMPRESSION: Mild CHF/ volume overload pattern when compared with January 2017.
[2018-01-17 19:34] LABS: Urine Amorphous Sediment 1+ /HPF (NONE SEEN); Urine Bacteria 20-50 /HPF (NONE SEEN); Urine Culture Reflex Order REFLEXED; Urine RBC <5 /HPF (NONE SEEN)
[2018-01-17] MEDS: NA CHLORIDE 0.9% 1,000 ML IV SCH (20:00)
[2018-01-17 20:06] LABS: Urine Blood 2+ (NEG); Urine Glucose NEGATIVE (NEG); Urine Protein 3+ (NEG)
[2018-01-17] MEDS ORDERED: TRAMADOL HCL 50 MG TAB PO PRN (21:55)
[2018-01-17] MEDS ORDERED: PANTOPRAZOLE 40MG TABLET PO ONE (23:00)
[2018-01-17] MEDS ORDERED: RANITIDINE 150 MG TABLET PO ONE (23:00)
[2018-01-18] MEDS: NA CHLORIDE 0.9% 1,000 ML IV SCH (01:52)
[2018-01-18] MEDS ORDERED: CEFTRIAXONE 1 GM/NS 50 ML 1 GM/50 ML BAG IV ONE (04:10)
[2018-01-18] MEDS ORDERED: NA CHLORIDE 0.9% 50 ML ONE (04:35)
[2018-01-18] MEDS ORDERED: CEFTRIAXONE 1000 MG/VIAL ONE (04:35)
--- NOTE | 2018-01-18 05:39 | P.HP ---
Certification for Inpatient Patient admitted to: Inpatient With expected LOS: >2 Midnights Patient will require the following post-hospital care: None Practitioner: I am a practitioner with admitting privileges, knowledge of patient current condition, hospital course, and medical plan of care. Services: Services provided to patient in accordance with Admission requirements found in Title 42 Section 412.3 of the Code of Federal Regulations Patient History Date of Service: 01/17/18 Reason for admission: Bilateral lower extremity weakness History of Present Illness: Patient is a 72-year-old gentleman who was diagnose with renal cell carcinoma about a year ago. Patient had a left-sided nephrectomy that was performed at [facility]. Patient did well and was told that his cancer was cured. Patient has been doing well over the last couple of months. However, over the last week his strength has decreased. He normally gets around with a walker, but over the last few weeks patient is not able her really get around much. Patient follows up with Dr. Bobo. ER physician was not aware of patient 's primary care provider. Patient will be transferred to Dr. Bobo service in the morning. Patient states that over the last 2 days he has been unable the walk. Prior to this he would get around okay with pain although he had been developing weakness. In the emergency room patient's had last performed. Patient was given IV Decadron. Patient states that his weakness seems improved. Unfortunately, it is an unknown etiology. However, will go ahead and Consult Neurology and do additional diagnostic studies as well. Allergies No Known Allergies Allergy (Verified 01/19/17 04:46) Home Medications: Amlodipine Besylate 5 mg PO DAILY 04/12/15 Aspirin [Grant Chewable Aspirin] 81 mg PO DAILY 04/12/15 Metoprolol Tartrate [Lopressor*] 25 mg PO BID 04/12/15 traMADol HCL [Ultram*] 50 mg PO Q12HP PRN 01/17/18 - Past Medical/Surgical History Has patient received pneumonia vaccine in the past: No Diabetic: No -: CVA -: HTN -: Kidney dx -: Cysts(recurrent) -: Kidney Cancer -: removal of cysts(head) -: Left Nephrectomy - Family History Mother Medical History: Diabetes Notes: Alzheimer's Father Medical History: Stroke Notes: Alzheimer's - Social History Smoking Status: Former smoker Alcohol use: No CD- Drugs: No Caffeine use: Yes Place of Residence: Home Review of Systems 10-point ROS is otherwise unremarkable Physical Examination - Vital Signs Temperature: 97.4 F Blood Pressure: 120/63 Pulse: 71 Respirations: 24 Pulse Ox (%): 97 - Physical Exam General: Alert, In no apparent distress, Oriented x2 HEENT: Atraumatic, PERRLA, Mucous membr. moist/pink, EOMI, Sclerae nonicteric Neck: Supple, 2+ carotid pulse no bruit, No LAD, Without JVD or thyroid abnormality Respiratory: Clear to auscultation bilaterally, Normal air movement Cardiovascular: Regular rate/rhythm, Normal S1 S2, No murmurs Gastrointestinal: Normal bowel sounds, Soft and benign, Non-distended, No rebound, No guarding, Tenderness Musculoskeletal: No clubbing, No swelling, No tenderness Integumentary: No rashes Neurological: Normal gait, Normal speech, Normal strength at 5/5 x4 extr, Normal tone, Sensation intact, Cranial nerves 3-12 intact, Normal affect Lymphatics: No axilla or inguinal lymphadenopathy - Studies Laboratory Data (last 24 hrs) 01/17/18 16:11: PT 18.0 H, INR 1.52 01/17/18 16:11: WBC 19.7 H, Hgb 10.5 L, Hct 32.6 L, Plt Count 242 01/17/18 16:11: Sodium 131 L, Potassium 4.8, BUN 24 H, Creatinine 1.70 H, Glucose 117 H, Magnesium 2.2, Total Bilirubin 1.1 H, AST 18, ALT 24, Alkaline Phosphatase 116, Lipase 93 Assessment & Plan - Problems (Diagnosis) (1) Status post nephrectomy Current Visit: Yes Status: Acute (2) Weakness Current Visit: Yes Status: Acute (3) Myopathy Current Visit: Yes Status: Acute (4) Cellulitis of arm, left Onset Date: 04/13/15 Current Visit: No Status: Acute (5) Renal cell carcinoma Onset Date: 01/19/17 Current Visit: No Status: Acute - Plan Plan: 1. Physical therapy evaluation 2. Notify primary care provider regarding admission 3. Monitor electrolytes 4. Pain control 5. Monitor labs for possible myopathy 6. Out of bed and ambulate and tolerated 7. GI and DVT prophylaxis - Advance Directives Does patient have a Living Will: No Does patient have a Durable POA for Healthcare: No
--- NOTE | 2018-01-18 06:37 | EKG ---
Test Date: 2018-01-17 Test Time: 15:43:10 Supervisor Agricultural Education: MANJEET MEASUREMENT RESULTS: Intervals: Rate: 109 [place]: 164 QRSD: 74 QT: 294 QTc: 395 [place]: P: 17 [place]: 164 QRS: 5 T: 13 INTERPRETIVE STATEMENTS: Sinus tachycardia Nonspecific T wave abnormality Abnormal ECG Compared to ECG 02/05/2017 23:19:39 T-wave abnormality now present Sinus rhythm no longer present Electronically Signed On 01-18-18 06:37:16 CDT by Ayaan He
[2018-01-18] MEDS ORDERED: NA CHLORIDE 0.9% 250 ML IV ONE (07:22)
[2018-01-18] MEDS ORDERED: ACETYLCYST 20% 800 MG/4 ML VIAL PO ONE (07:30)
[2018-01-18] MEDS ORDERED: METOPROLOL TAR 25 MG TAB PO SCH (09:00)
[2018-01-18] MEDS ORDERED: CEFTRIAXONE 1 GM/NS 50 ML 1 GM/50 ML BAG IV SCH (09:00)
[2018-01-18] MEDS: CEFTRIAXONE/SWI 1gm 1 GM/10 ML SYR IV SCH (09:00)
[2018-01-18] MEDS ORDERED: PANTOPRAZOLE 40MG TABLET PO SCH ×2 (09:00→21:56)
[2018-01-18] MEDS: AMLODIPINE 5 MG TAB PO SCH (09:07)
[2018-01-18] MEDS: ASPIRIN 81 MG CHEWABLE TABLET PO SCH (09:07)
[2018-01-18] MEDS: PANTOPRAZOLE 40MG TABLET PO SCH ×2 (09:11→21:10)
--- NOTE | 2018-01-18 10:50 | EKG ---
Test Date: 2018-01-18 Test Time: 09:20:52 Wood Boat Builder Supervisor: LARS MEASUREMENT RESULTS: Intervals: Rate: 117 [place]: QRSD: 84 QT: 282 QTc: 393 [place]: P: [place]: QRS: 8 T: -63 INTERPRETIVE STATEMENTS: Atrial fibrillation with rapid ventricular response Nonspecific T wave abnormality, probably digitalis effect Abnormal ECG Compared to ECG 01/17/2018 15:43:10 Sinus tachycardia no longer present T-wave abnormality still present Electronically Signed On 01-18-18 10:49:19 CDT by Antione Davis
[2018-01-18] MEDS ORDERED: METOPROLOL TARTRATE 5 MG/5 ML INJ IV STA ×2 (11:00→11:31)
[2018-01-18 11:37] LABS: Magnesium 2.5 mg/dL (1.8-2.4); Phosphorus 2.8 mg/dL (2.5-4.9); Potassium 3.9 mmol/L (3.5-5.1)
[2018-01-18] MEDS ORDERED: DIGOXIN 0.25 MG/ML AMP IV ONE (11:39)
[2018-01-18] MEDS ORDERED: METOPROLOL TARTRATE 5 MG/5 ML INJ IV SCH (11:48)
[2018-01-18] MEDS: ENOXAPARIN 80 MG/0.8 ML SQ SCH (11:52)
[2018-01-18 12:05] LABS: Absolute Neutrophil 10.1 K/uL (1.8-8.0); Basophils % 0.1 % (0-1.3); Hematocrit 32.4 % (39.6-49.0); MCH 29.8 pg (27.0-35.0); MCV 89.7 fL (80-100); MPV 10.1 fL (7.6-11.3); Monocytes % 30.9 % (3.3-12.3); RBC Red Blood Cell Count 3.62 M/uL (4.33-5.43)
--- NOTE | 2018-01-18 12:09 | P.PN ---
Subjective Date of Service: 01/18/18 Chief Complaint: Bilateral lower extremity weakness Pt seen and examined at bedside with RN. Chart reviewed. Case DW with cardiology. Currently pt complains of Dizziness and is in Afib with RVR. Sitting on the chair. Denies SOB or chest pain. Review of Systems General: As per HPI Physical Examination - Vital Signs Temperature: 97.1 F Blood Pressure: 144/90 Pulse: 124 Respirations: 18 Pulse Ox (%): 94 - Physical Exam General: Alert, In no apparent distress HEENT: Atraumatic, PERRLA, EOMI Neck: Supple, JVD not distended Respiratory: Normal air movement, Crackles/rales Cardiovascular: Normal S1 S2, Irregular heart rate/rhythm Gastrointestinal: Normal bowel sounds, No tenderness Musculoskeletal: No tenderness Integumentary: No rashes Neurological: Normal speech, Normal tone, Normal affect Lymphatics: No axilla or inguinal lymphadenopathy - Studies Laboratory Data (last 24 hrs) 01/18/18 10:51: Sodium 131 L, Potassium 3.9, BUN 26 H, Creatinine 1.20, Glucose 141 H, Phosphorus 2.8, Magnesium 2.5 H 01/17/18 16:11: PT 18.0 H, INR 1.52 01/17/18 16:11: WBC 19.7 H, Hgb 10.5 L, Hct 32.6 L, Plt Count 242 01/17/18 16:11: Sodium 131 L, Potassium 4.8, BUN 24 H, Creatinine 1.70 H, Glucose 117 H, Magnesium 2.2, Total Bilirubin 1.1 H, AST 18, ALT 24, Alkaline Phosphatase 116, Lipase 93 Medications List Reviewed: Yes Assessment & Plan - Problems (Diagnosis) (1) Atrial fibrillation with RVR Current Visit: Yes Status: Acute Plan: Acute Afib with RVR. -S/P Lopressor 5mg IV x 2. HR now in 110-120 -Cardiology consulted. Appreciated Reccs -0.5 Digoxin -Repeat Lopressor if needed -increase metoprolol to 50mg BID -Anticoagulation with Lovenox. -ECHO pending (2) MANOLO (acute kidney injury) Current Visit: Yes Status: Acute Plan: MANOLO with Cr of 1.70 -h/o Nephrotomy -IV fluids for MANOLO but caution due to possibility of CHF. (3) Anemia Onset Date: 01/19/17 Current Visit: No Status: Acute Plan: Symptomatic Anemia with fall 2.2 to syncopal Episode at home -Hgb is 10.2 for now -Continue to monitor -Stool Occult negative. -Started on Lovenox today will monitor h/h closely Qualifiers: Anemia type: iron deficiency Iron deficiency anemia type: chronic blood loss Qualified Code(s): D50.0 - Iron deficiency anemia secondary to blood loss (chronic) (4) Fall Onset Date: 01/19/17 Current Visit: No Status: Acute Plan: PT consulted. Qualifiers: Encounter type: initial encounter Qualified Code(s): W19.XXXA - Unspecified fall, initial encounter (5) Renal cell carcinoma Onset Date: 01/18/18 Current Visit: Yes Status: Chronic Qualifiers: Laterality: unspecified laterality Qualified Code(s): C64.9 - Malignant neoplasm of unspecified kidney, except renal pelvis (6) Status post nephrectomy Onset Date: 01/18/18 Current Visit: Yes Status: Chronic Discharge Plan: Home Plan to discharge in: 72 Hours - Code Status/Comfort Care Code Status Assessed: Yes Critical Care: No
[2018-01-18 12:31] LABS: Blood Morphology Comment NOT SEEN (NOT SEEN); Platelet Estimate ADEQ
[2018-01-18] MEDS: SOTALOL HCL 80 MG TAB PO SCH ×2 (12:52→17:37)
--- NOTE | 2018-01-18 13:18 | RAD REPORT ---
EXAM DESCRIPTION: CT - Abdomen Pelvis W Contrast - 01/18/2018 12:57 pm CLINICAL HISTORY: Renal cell carcinoma/abdominal pain COMPARISON: December 2006 TECHNIQUE: Computed axial tomography of the abdomen pelvis was obtained. 100 cc Isovue-300 was admin istered intravenously. Oral contrast was not requested which limits evaluation of bowel. All CT scans are performed using dose optimization technique as appropriate and may include automated exposure control or mA/KV adjustment according to patient size. FINDINGS: The left kidney has been removed since the prior exam. An 8 centimeter mass is present wit hin the left renal fossa which invades the spleen. A 3.5 centimeter left para-aortic lymph node has d eveloped. A 3.8 centimeter right adrenal mass has developed. The liver, pancreas and right kidney demonstrate no significant abnormality. A small amount of ascites is present. A small left pleural effusion with left lower lobe atelectasis is seen A small to moderate pericardial effusion is present. A left inguinal hernia contains fat. Diverticula stem from the colon without evidence of diverticulit is. IMPRESSION: 8 centimeter mass within the left renal fossa invading the spleen consistent with recurr ent neoplasm. 3.5 centimeter neoplastic left periaortic lymph node 3.8 centimeter right adrenal metastasis Small to moderate pericardial effusion
[2018-01-18] MEDS ORDERED: ENOXAPARIN 80 MG/0.8 ML SQ SCH (17:00)
[2018-01-18] MEDS ORDERED: RANITIDINE 150 MG TABLET PO SCH ×3 (21:00→21:56)
[2018-01-18] MEDS ORDERED: METOPROLOL TAR 50 MG TAB PO SCH (21:00)
--- NOTE | 2018-01-19 02:34 | CON ---
Date of Consultation: 01/18/2018 Additional Admitting Physician: Colleen Luis MD. Reason For Consultation: Atrial fibrillation. History Of Present Illness: Mr. Aguirre is a 72-year-old white male without any previous cardiac hist ory. Recently, he was at [facility], undergoing abdominal surgery, and had a cardiac cleara nce after having a normal echocardiogram and a normal stress test. He came into the hospital with sh ortness of breath and weakness and was noted to be in a rapid atrial fibrillation. Denied any chest pain. Had some nausea and diaphoresis and shortness of breath. Denied PND, orthopnea. Denied any p edal edema or syncope. By the time I saw him, he was receiving IV beta-alberto as needed as well as metoprolol and continued to be in rapid atrial fibrillation. He was still complaining of weakness. Past Medical History: Otherwise unremarkable. Review of Systems: Negative. Social History: Negative. Family History: Noncontributory. Review of Systems: Negative. Medications: Listed by Dr. Luis. Physical Examination: Vital Signs: He was in atrial fibrillation, with rapid rhythm between 110 to 130, and his blood pres sure was normal. HEENT: Negative. Neck: Supple without any bruit, adenopathy, JVD, or thyromegaly. Chest: Revealed some rales in both bases. Cardiac Exam: Revealed atrial fibrillation. Abdomen: Benign. Extremities: Reveal trace edema. Diagnostic Data: The chest x-ray was normal. Atrial fibrillation was noted on EKG. His laboratory evaluation was unremarkable. Impression And Plan: New-onset atrial fibrillation. I would like to switch him to Betapace. Contin ue the Xarelto, and may continue Lovenox. Continue aspirin. We can still give him IV beta-blockers on an as needed basis if his heart rate was over 130. We will see how he does with the Betapace. If he does not convert, we may have to consider a direct current cardioversion. We will see what the e chocardiogram shows and that will help us determine what anticoagulants to put him on when he is disc harged. I will discuss the case further with Dr. Luis. RIAZ/CATIE Voice ID: [id number] Report ID: [id number]
[2018-01-19] MEDS: SOTALOL HCL 80 MG TAB PO SCH (03:29)
[2018-01-19 05:12] VITALS: BMI 26.2
--- NOTE | 2018-01-19 07:35 | ECHO ---
HEIGHT: 5 ft 9 in WEIGHT: 177 lb 11.2 oz DATE OF STUDY: 01/18/[address]: Colleen Luis MD 2-DIMENSIONAL: YES M.MODE: YES DOPPLER: YES COLOR FLOW: YES TDS: PORTABLE: DEFINITY: BUBBLE STUDY: DIAGNOSIS: CONGESTIVE HEART FAILURE CARDIAC HISTORY: CATHERIZATION: NO SURGERY: NO PROSTHETIC VALVE: NO PACEMAKER: NO MEASUREMENTS (cm) DIASTOLIC (NORMALS) SYSTOLIC (NORMALS) IVSd 0.9 (0.6-1.2) LA Diam 2.7 (1.9-4.0) LVEF 58% LVIDd 4.5 (3.5-5.7) LVIDs 3.1 (2.0-3.5) %FS 31% LVPWd 1.0 (0.6-1.2) Ao Diam 3.3 (2.0-3.7) 2 DIMENSIONAL ASSESSMENT: RIGHT ATRIUM: NORMAL LEFT ATRIUM: NORMAL RIGHT VENTRICLE: NORMAL LEFT VENTRICLE: NORMAL TRICUSPID VALVE: NORMAL MITRAL VALVE: NORMAL PULMONIC VALVE: NORMAL AORTIC VALVE: NORMAL PERICARDIAL EFFUSION: NONE AORTIC ROOT: NORMAL LEFT VENTRICULAR WALL MOTION: NORMAL DOPPLER/COLOR FLOW: MILD TRICUSPID REGURGITATION. NORMAL RIGHT VENTRICULAR SYSTOLIC PRESSURE COMMENTS: MILD TRICUSPID REGURGITATION. NORMAL RIGHT VENTRICULAR SYSTOLIC PRESSURE. NORMAL LEFT VENTRICULAR EJECTION FRACTION AND SIZE. LEFT ATRIAL ENLARGEMENT. NO THROMBUS. TECHNOLOGIST: MAY ALMANZA
[2018-01-19] MEDS: AMLODIPINE 5 MG TAB PO SCH (09:00)
[2018-01-19] MEDS: PANTOPRAZOLE 40MG TABLET PO SCH (09:50)
[2018-01-19] MEDS: CEFTRIAXONE/SWI 1gm 1 GM/10 ML SYR IV SCH (09:50)
[2018-01-19] MEDS: ENOXAPARIN 80 MG/0.8 ML SQ SCH (09:51)
[2018-01-19] MEDS: ASPIRIN 81 MG CHEWABLE TABLET PO SCH (09:51)
[2018-01-19 12:52] VITALS: BP 134/63; TEMP 97.4
[2018-01-19 13:58] VITALS: O2SAT 97
--- NOTE | 2018-01-19 14:55 | P.DS ---
Admission Date: 01/18/18 Discharge Date: 01/19/18 Disposition: ROUTINE DISCHARGE Discharge Condition: GOOD Reason for Admission: Bilateral lower extremity weakness - Problems (1) Atrial fibrillation with RVR Current Visit: Yes Status: Resolved (2) MANOLO (acute kidney injury) Current Visit: Yes Status: Resolved (3) Anemia Onset Date: 01/19/17 Current Visit: No Status: Chronic Qualifiers: Anemia type: iron deficiency Iron deficiency anemia type: chronic blood loss Qualified Code(s): D50.0 - Iron deficiency anemia secondary to blood loss (chronic) (4) Fall Onset Date: 01/19/17 Current Visit: No Status: Resolved Qualifiers: Encounter type: initial encounter Qualified Code(s): W19.XXXA - Unspecified fall, initial encounter (5) Renal cell carcinoma Onset Date: 01/18/18 Current Visit: Yes Status: Chronic Qualifiers: Laterality: left Qualified Code(s): C64.2 - Malignant neoplasm of left kidney, except renal pelvis (6) Status post nephrectomy Onset Date: 01/18/18 Current Visit: Yes Status: Chronic Brief History of Present Illness: Patient is a 72-year-old gentleman who was diagnose with renal cell carcinoma about a year ago. Patient had a left-sided nephrectomy that was performed at [facility]. Patient did well and was told that his cancer was cured. Patient has been doing well over the last couple of months. However, over the last week his strength has decreased. He normally gets around with a walker, but over the last few weeks patient is not able her really get around much. Patient follows up with Dr. Bobo. ER physician was not aware of patient 's primary care provider. Patient will be transferred to Dr. Bobo service in the morning. Patient states that over the last 2 days he has been unable the walk. Prior to this he would get around okay with pain although he had been developing weakness. In the emergency room patient's had last performed. Patient was given IV Decadron. Patient states that his weakness seems improved. Unfortunately, it is an unknown etiology. However, will go ahead and Consult Neurology and do additional diagnostic studies as well. Hospital Course: Overall during the hospital stay patient remained stable Patient was initially admitted to the hospital for generalized weakness. Patient was also found to have a fall after syncopal episode at the house. And stated that he was unable to get her bed for about 2 days. Patient when admitted to the hospital was found to have atrial fibrillation with RVR and metastasis of his renal cell carcinoma. Patient atrial fibrillation with RVR was treated with metoprolol 5 mg IV x3 and patient's metoprolol dose at home was increased to 50 mg b.i.d.. Patient however still remained in AFib with RVR and thus Betapace was started. Cardiology was consulted. The patient was converted back to sinus rhythm after Betapace 80 mg and was anticoagulated with Lovenox. Patient was then converted to p.o. Eliquis here in the hospital. While here in the hospital patient had an abdominal CT along with chest CT done to evaluate for his renal cell carcinoma post nephrectomy. Patient was found to have metastatic disease with Mets to Spleen, paraaortic Nodes and Adrenal gland. Oncology was called from the hospital who recommended the patient can have outpatient followup with them to establish care and talk about further treatment options. Patient was then discharged home under stable condition up with Oncology and primary care provider. While here in the hospital patient was also found to have a urinary tract infection with nitrite positive. Urine culture was contaminated however given the symptoms patient was discharged home on p.o. Levaquin to be taken for total of 14 days. Vital Signs/Physical Exam: Temp Pulse Resp BP Pulse Ox 97.4 F 57 18 134/63 97 01/19/18 12:00 01/19/18 12:00 01/19/18 12:00 01/19/18 12:00 01/19/18 12:00 General: Alert, In no apparent distress HEENT: Atraumatic, PERRLA, EOMI Neck: Supple, JVD not distended Respiratory: Clear to auscultation bilaterally, Normal air movement Cardiovascular: Regular rate/rhythm, Normal S1 S2 Gastrointestinal: Normal bowel sounds, No tenderness Musculoskeletal: No tenderness Integumentary: No rashes Neurological: Normal speech, Normal tone, Normal affect Lymphatics: No axilla or inguinal lymphadenopathy Laboratory Data at Discharge: WBC 16.1 K/uL (4.3-10.9) H D 01/18/18 10:51 Hgb 10.8 g/dL (13.6-17.9) L 01/18/18 10:51 Hct 32.4 % (39.6-49.0) L 01/18/18 10:51 Plt Count 219 K/uL (152-406) 01/18/18 10:51 PT 18.0 SECONDS (9.5-12.5) H 01/17/18 16:11 INR 1.52 01/17/18 16:11 Sodium 136 mmol/L (136-145) 01/19/18 04:36 Potassium 4.0 mmol/L (3.5-5.1) 01/19/18 04:36 BUN 30 mg/dL (7-18) H 01/19/18 04:36 Creatinine 1.20 mg/dL (0.55-1.3) 01/19/18 04:36 Glucose 100 mg/dL (74-106) 01/19/18 04:36 Phosphorus 2.8 mg/dL (2.5-4.9) 01/18/18 10:51 Magnesium 2.5 mg/dL (1.8-2.4) H 01/18/18 10:51 Total Bilirubin 1.1 mg/dL (0.2-1.0) H 01/17/18 16:11 AST 18 U/L (15-37) 01/17/18 16:11 ALT 24 U/L (12-78) 01/17/18 16:11 Alkaline Phosphatase 116 U/L (45-117) 01/17/18 16:11 Lipase 93 U/L (73-393) 01/17/18 16:11 Home Medications: Amlodipine Besylate 5 mg PO DAILY 04/12/15 Aspirin [Grant Chewable Aspirin] 81 mg PO DAILY 04/12/15 traMADol HCL [Ultram*] 50 mg PO Q12HP PRN 01/17/18 Apixaban [Eliquis] 5 mg PO BID #60 tablet 01/19/18 Pantoprazole [Protonix Tab*] 40 mg PO BID #60 tab 01/19/18 Sotalol HCl [Betapace*] 80 mg PO BID 6AM 6PM #60 tab 01/19/18 levoFLOXacin [Levaquin] 500 mg PO DAILY #14 tab 01/19/18 New Medications: Apixaban [Eliquis] 5 mg PO BID #60 tablet levoFLOXacin [Levaquin] 500 mg PO DAILY #14 tab Pantoprazole [Protonix Tab*] 40 mg PO BID #60 tab Sotalol HCl [Betapace*] 80 mg PO BID 6AM 6PM #60 tab Patient Discharge Instructions: Please f/u with PCP in 1 to 2 week post discharge. Please f.u with Pant in 1 to 2 week post discharge. New medication. Betapace 80mg BID. Eliquis 5mg BID Diet: Regular Activity: Ad milka Followup: Dameon Bobo MD [Primary Care Provider] - 1 Week Pant Erin Lindsay MD [ACTIVE - CAN ADMIT] - 1 Week
--- NOTE | 2018-01-20 13:09 | PN ---
Date of Progress Note: 01/19/2018 Mr. Aguirre had come in with weakness, noted to be in atrial fibrillation with rapid ventricular respo nse, seen yesterday 01/18/2018. I put him on Betapace. He is in sinus rhythm now. I think the dania ent can go home on Betapace and on Eliquis and follow up with his human service technician as well as us in ab out 2 weeks. RIAZ/CATIE Voice ID: [id number] Report ID: [id number]
== END 2018-01-19 16:39 | disposition home health service (06) | DRG 309 ==
LOC: ER 15:04 → ERHOLD 18:41 → INTOOBSV 19:27 → OBSVTOIN 19:27 → 2ND 20:04 → OBSVTOIN 01-18 11:22
PROVIDERS: ADMIT Internal Medicine; ATTEND Family Medicine
DX: I48.91 Unspecified atrial fibrillation (principal); N17.9 Acute kidney failure, unspecified; C78.89 Secondary malignant neoplasm of other digestive organs; C79.72 Secondary malignant neoplasm of left adrenal gland; C77.2 Secondary and unspecified malignant neoplasm of intra-abdominal lymph nodes; N39.0 Urinary tract infection, site not specified; Z90.5 Acquired absence of kidney; W19.XXXA Unspecified fall, initial encounter; Y92.009 Unspecified place in unspecified non-institutional (private) residence as the place of occurrence of the external cause; Z85.528 Personal history of other malignant neoplasm of kidney; Z79.82 Long term (current) use of aspirin; D50.0 Iron deficiency anemia secondary to blood loss (chronic); I10 Essential (primary) hypertension; Z87.891 Personal history of nicotine dependence; G72.9 Myopathy, unspecified
CPT/HCPCS: 36415; 70450; 71045; 74177; 80048; 80076; 81003; 81015; 82550; 82962; 83690; 83735; 83880; 84100; 84443; 84484; 85025; 85610; 85652; 87086; 87088; 93005; 93306; 96361; 96374; 97163; 99285; J0696; J1100; J1160; J1650; J7030; Q9967

== ENCOUNTER 2018-02-02 10:33 | Inpatient (IN) | payer OTHER, SELFPAY ==
--- OUTSIDE RECORDS SUMMARY | 2018-02-02 10:36 | XMS REPORT | Clinical Summary ---
:1945 Author Organization [facility] Address [address] [place] [address] Phone Care Team Providers Name Role Phone [...] Weakness ( Primary 02/13/2017 MD Luz Dx);Anemia, Patriico, Abeer, unspecified MD type;Generalized Parhizgar, weakness;Hematuria, MD Tonny gross;History of Shamsee, stroke;Essential Denis-Damián hypertension;Renal MD Bean cell carcinoma, left (HCC);Hematuria;Brandon al cell cancer, unspecified laterality (HCC);Preoperative clearance after 02/01/2017 Social History Tobacco Use Types Packs/Day Years [...] 03/01/2017 11:00 AM CDT Gross hematuria after 02/01/2017 Results INTRAOPERATIVE PATH REPORT - SCAN (04/13/2017 10:53 AM)Only the most recent of2 resultswithin the time period is included.Manual Differential (2017 4:26 AM)Only the most recent of6 resultswithin the time period is included. Component Value Ref Range Total Counted WBC Morphology Normal Platelet Morphology Normal RBC Morphology Normal Specimen Performing Laboratory Blood - Arm, [address] [address] CBC with platelet count + automated diff [...] % Specimen Performing Laboratory Blood - Arm, [address] [address] CBC with platelet count + automated diff (2017 4:26 AM)Only the most recent of7 resultswithin the time period is included. Specimen Performing Laboratory Blood Narrative The following orders were created for panel order CBC with platelet count + automated diff. Procedure Abnormality Status --------- ------ CBC with platelet count ...[[id number]]AbnormalFinal result Manual Differential[[id number]] Fi nal result Please view results for [...] PATIENTS. Specimen Performing Laboratory Blood - Arm, [address] [address] Hemoglobin and hematocrit (03/03/2017 12:36 PM)Only the most recent of2 resultswithin the time period is included. Component Value Ref Range Hemoglobin 8.6 (L) 13.7 - 17.5 GM/DL Hematocrit 28.1 (L) 40.1 - 51.0 % Specimen Performing Laboratory Blood - Arm, [address] [address] Prepare RBC (03/02/2017 11:54 PM) Component Value Ref Range CROSSMATCH COMPATIBLE Unit ABO O Neg UNIT NUMBER [id number] Status TRANSFUSED Blood Bank Product RED BLOOD CELLS PRODUCT CODE [id number] CROSSMATCH COMPATIBLE Unit ABO O Neg UNIT NUMBER [id number] Status TRANSFUSED Blood Bank Product RED BLOOD CELLS PRODUCT CODE [id number] Specimen Performing Laboratory [employer] [place] XR X-RAY NO CHARGE (03/01/2017 5:03 PM) Specimen Performing Laboratory GE RIS Narrative FINAL REPORT Two abdomen images and a third image show an example of potential missing items. No visible retained sponge with marker similar to that of the provided example. Report called to the operating room staff. Signed: Priyanka Perea MD Report Verified Date/Time:03/01/2017 16:40:45 Reading Location: [facility] C013 Consult Reading Room Procedure Note Interface, External Ris In - 03/01/2017 5:07 PM CDT FINAL REPORT Two abdomen images and a third image show an example of potential missing items. No visible retained sponge with marker similar to that of the provided example. Report called to the operating room staff. Signed: Priyanka Perea MD Report Verified Date/Time: 03/01/2017 16:40:45 Reading Location: [facility] C013 Consult Reading Room /HCT (H&H)-Stat Lab (03/01/2017 4:38 PM)Only the most recent of2 resultswithin the time period is included. Component Value Ref Range Hemoglobin 10.4 (L) 13.0 - 16.8 g/dL Hematocrit 31.0 (L) 40.0 - 50.0 % Specimen Performing Laboratory Blood, [place] [address] [facility] LAB[facility] (ABG,NA,K,H&H,GLUCOSE) (03/01/2017 12:21 PM) Specimen Performing Laboratory Blood, Arterial Narrative The following orders were created for panel order [facility] (ABG,NA,K,H&H,GLUCOSE). Procedure Abnormality Status --------- ------ Blood gas, arterial[[id number]]AbnormalFinal result Sodium Na-Stat Lab[[id number]] NormalFinal result Potassium-Stat Lab[[id number]] NormalFinal result Glucose-Stat Lab[[id number]] AbnormalFinal result HGB/HCT (H&H)-Stat Lab[[id number]] Abnormal Final result Please view results for these tests on the individual orders. Potassium-Stat Lab (03/01/2017 12:21 PM) Component Value Ref Range Potassium 4.1 3.6 - 5.5 meq/L Specimen Performing Laboratory Blood, [address] [address] Sodium Na-Stat Lab (03/01/2017 12:21 PM) Component Value Ref Range Sodium 137 135 - 148 meq/L Specimen Performing Laboratory Blood, [address] [address] Glucose-Stat Lab (03/01/2017 12:21 PM) Component Value Ref Range Glucose 114 (H) 70 - 110 mg/dL Specimen Performing Laboratory Blood, [address] [address] Calcium, Ionized (03/01/2017 12:21 PM) Component Value Ref Range Calcium, Ion 1.12 1.12 - 1.27 mmol/L pH, Blood 7.42 Specimen Performing Laboratory Blood [address] [address] Blood gas, arterial (03/01/2017 12:21 PM) Component [...] FIO2 100.0 % Specimen Performing Laboratory Blood, [address] [address] Tissue Exam (03/01/2017 12:18 PM) Component Value Ref Range Case Report Surgical Pathology Report Case: [id number] Authorizing Provider:David Gonzalez MDCollected: 03/01/2017 1218 Ordering Location: [facility] PERIOPERATIVE Received: 03/01/2017 1302 SERVICES Pathologist: Nancy [...] MALIGNANCY (0/3) Signing Pathologist Direct Phone Line: [phone] COMMENT Sample A, from the left lateral [...] disease (specify type): Focal chronicinflammation CPT Code(s) 30742 X 2, 68601 X 2, 92107; 98001 x3, 42870 CLINICAL HISTORY Gross hematuria, left renal mass [...] tissue. A touch preparation is per formed. Automatic Pilot Mechanic sections are submitted in FSB1 and B2. [...] greatest dimension left in the inferior pole. Automatic Pilot Mechanic sections are submitted. E1, vascular margin and [...] - Urinary Bladder, TUR; Tissue - [facility] Mass; Tissue - Lymph Node; Tissue - [address] [facility], [place] [address] Prepare Leuko-Red RBC (03/01/2017 11:34 AM) Component Value Ref Range CROSSMATCH COMPATIBLE Unit ABO O Neg UNIT NUMBER [id number] Status READY Blood Bank Product RED BLOOD CELLS PRODUCT CODE [id number] CROSSMATCH COMPATIBLE Unit ABO O Neg UNIT NUMBER [id number] Status READY Blood Bank Product RED BLOOD CELLS PRODUCT CODE [id number] Specimen Performing Laboratory Other [employer] [place] Type and screen, automated (03/01/2017 10:31 AM) Component Value Ref Range ABO/RH AUTOMATED (BEAKER) O NEGATIVE Ab Scrn NEGATIVE Specimen Performing Laboratory Blood [address] [address] RHYTHM STRIP - SCAN (02/14/2017 1:21 PM)EKG-SCANNED (02/14/2017 1:21 PM) Cytology (02/13/2017 3:07 PM)Only the most recent of2 resultswithin the time period is included. Component Value Ref Range Case Report Medical Cytology Report Case: [id number] Authorizing Provider:Tonny Pace MD Collected: 02/13/2017 1507 Ordering Location: [address] Received: 02/14/2017 0852 Service Pathologist: Brody Lopez MD Specimen:Urine, Bladder Wash DIAGNOSIS URINE, BLADDER WASH (CYTOSPINS): - NEGATIVE FOR DYSPLASTIC/MALIGNANT CELLS Signing Pathologist Direct Phone Line: [phone] CPT Code(s) 90063 CLINICAL DATA History of left renal cell cancer SPECIMEN SOURCE URINE, BLADDER WASH (CYTOSPINS) GROSS DESCRIPTION 40 mls yellow; 4 cytospins Collected: [id number] Received: [id number] STATEMENT OF ADEQUACY Satisfactory Technical component was performed at [facility], Department of Pathology, [address] [place] [address], Professional component was performed [facility], at Department of Pathology, [address] [place] [address], Specimen Performing Laboratory Urine - Urine, Bladder Wash [address] [address] XR chest 1 view portable / bedside [...] MD Report Verified Date/Time:02/12/2017 11:29:48 Reading Location: [facility] C013X Ortho Consult Reading Room Procedure Note [...] Report Verified Date/Time: 02/12/2017 11:29:48 Reading Location: [facility] C013X Ortho Consult Reading Room thoracentesis (02/12/2017 11:17 AM) Specimen Performing Laboratory GE RIS Narrative FINAL REPORT Ultrasound Guided right Thoracentesis: Modality: Ultrasound Approach: Right Posterior Lateral Intercostal Sedation: None Findings: Informed consent was obtained. After an appropriate site for drainage was found, the skin was prepped and draped, and local anesthesia was given. A 4 Luxembourger catheterwas inserted into the right pleural space under ultrasound guidance, and approximately 500 cc of serosanguineous pleural fluid was aspirated. The catheter was removed. No immediate complications were noted. A postprocedure chest radiograph revealed no evidence of pneumothorax. Impression: 1.Uncomplicated ultrasound-guided right thoracentesis. Signed: David Fulton MD Report Verified Date/Time:02/12/2017 12:22:12 Reading Location: [facility] C013T Transitional Reading Room Procedure Note Interface, External Ris In - 02/12/2017 12:24 PM CDT FINAL REPORT Ultrasound Guided right Thoracentesis: Modality: Ultrasound Approach: Right Posterior Lateral Intercostal Sedation: None Findings: Informed consent was obtained. After an appropriate site for drainage was found, the skin was prepped and draped, and local anesthesia was given. A 4 Luxembourger catheter was inserted into the right pleural space under ultrasound guidance, and approximately 500 cc of serosanguineous pleural fluid was aspirated. The catheter was removed. No immediate complications were noted. A postprocedure chest radiograph revealed no evidence of pneumothorax. Impression: 1. Uncomplicated ultrasound-guided right thoracentesis. Signed: David Fulton MD Report Verified Date/Time: 02/12/2017 12:22:12 Reading Location: [facility] C013T Transitional Reading Room /aPTT (02/12/2017 5:51 AM)Only the most recent of2 resultswithin the time period is included. Component Value Ref Range Protime 16.7 (H) 11.7 - 14.7 seconds INR 1.4 <=5.9 PTT 36.2 (H) 22.5 - 36.0 seconds Specimen Performing Laboratory Blood - [place], [place] [address] Narrative RECOMMENDED COUMADIN/WARFARIN INR THERAPY RANGES STANDARD [...] Performing Laboratory Blood - Arm, Left [facility] [address] [address] Narrative 0.00 0.56 0.00 0.00 0.00 0.00 0.00 0.00 MRA abdomen with IV contrast (02/10/2017 12:07 PM) Specimen Performing Laboratory [employer] RIS Narrative FINAL REPORT MRA / MRV of the abdominal aorta and renal arteries INDICATION: This is a 71 years old male with no large renal cell carcinoma, presents for assessment, evaluate the presence of absence of IVC/renal vein involvement. 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 TECHNIQUE: Leona Kunshan [employer] MRI scan. Limited gradient echo images were performed for planning purposes. A Non-ECG gated, gadolinium enhanced 3-D MRA and MRV was performed in a coronal orientation. Other gradient echo sequences as well as the 3-D SSFP was also performed. Multi-planar reconstruction were performed using an independent workstation. Please refer to the contrast sheet scanned in the [employer] system for the amount and route of [...] MD Report Verified Date/Time:02/10/2017 12:16:28 Reading Location: [place] [address] Cardiology MRI Procedure Note Interface, External Ris [...] Report Verified Date/Time: 02/10/2017 12:16:28 Reading Location: [facility] P047 Cardiology MRI chest with IV contrast (02/10/2017 2:43 AM) Specimen Performing Laboratory GE RIS Narrative FINAL REPORT CT, CHEST, WITH CONTRAST INDICATION: RCC, concern for mediastinal lymph node COMPARISON: Correlation to abdominal CT obtained by [facility] March 30, 2016 TECHNIQUE:Postcontrast axially oriented images [...] MD Report Verified Date/Time:02/10/2017 03:10:37 Reading Location: [facility] C013T Transitional Reading Room Procedure Note Interface, External Ris In - 02/10/2017 3:12 AM CDT FINAL REPORT CT, CHEST, WITH CONTRAST INDICATION: RCC, concern for mediastinal lymph node COMPARISON: Correlation to abdominal CT obtained by [facility] March 30, 2016 TECHNIQUE: Postcontrast axially oriented [...] Report Verified Date/Time: 02/10/2017 03:10:37 Reading Location: [address] Transitional Reading Room myocardial perfusion SPECT, pharm(Lexiscan) (02/09/2017 3:29 PM) Specimen Performing Laboratory [employer] Narrative FINAL REPORT PROCEDURE:Rest/Stress MYOCARDIAL PERFUSION SPECT with regadenoson\\XA9\\ CPT CODE:31020 INDICATION:Cardiac workup, risk stratification HISTORY:Cardiac risk factors: [...] function.5. Normal extracardiac tracer distribution.6. No previous [facility] study for comparison. NONINVASIVE RISK STRATIFICATION: The above findings are considered low risk (<1% annual mortality rate) based on the following criterion: - Normal or small myocardial perfusion defect at rest or with stress (JACC. 2012;59(9):857-81.) Signed: Loy Amaro MD Report Verified Date/Time:02/09/2017 15:57:08 Reading Location: [address] Reading Room Procedure Note Interface, External Ris In - 02/09/2017 3:59 PM CDT FINAL REPORT PROCEDURE: Rest/Stress MYOCARDIAL PERFUSION SPECT with regadenoson\\XA9\\ CPT CODE: 84306 INDICATION: Cardiac workup, risk stratification HISTORY: Cardiac [...] Normal extracardiac tracer distribution. 6. No previous [facility] study for comparison. NONINVASIVE RISK STRATIFICATION: The above findings are considered low risk (<1% annual mortality rate) based on the following criterion: - Normal or small myocardial perfusion defect at rest or with stress (JACC. 2012;59(9):857-81.) Signed: Loy Amaro MD Report Verified Date/Time: 02/09/2017 15:57:08 Reading Location: [address] Reading Room Treadmill tolerance(Non-Nuclear Treadmill) (02/09/2017 10:43 AM) Specimen Performing Laboratory Target Data Narrative Protocol Name Regadenoson Time In Exercise [...] 11:57:11 AM Confirmed by MD JEAN JORGE ([id number]) on 02/10/2017 12:16:02 PM Procedure Note Interface, [...] Stress NORVASC Confirmed by fellow Laine Gillis ([id number]) on 02/09/2017 11:57:11 AM Confirmed by MD JEAN JORGE ([id number]) on 02/10/2017 12:16:02 PM ECG 12 lead (02/09/2017 10:34 AM)Only the most recent of2 resultswithin the time period is included. Specimen Performing Laboratory GE MUSE Narrative Ventricular Rate 74 BPM Atrial Rate 74 BPM P-R Interval 178 ms QRS Duration 90 ms Q-T Interval 378 ms QTC Calculation(Bazett) 419 ms P [place] 38 degrees R [place] 41 degrees T [place] 54 degrees Normal sinus rhythm Normal ECG Confirmed by MD JEAN JORGE ([id number]) on 02/09/2017 2:02:14 PM Procedure Note Interface, External Ris In - 02/09/2017 2:02 PM CDT Ventricular Rate 74 BPM Atrial Rate 74 BPM P-R Interval 178 ms QRS Duration 90 ms Q-T Interval 378 ms QTC Calculation(Bazett) 419 ms P [place] 38 degrees R [place] 41 degrees T [place] 54 degrees Normal sinus rhythm Normal ECG Confirmed by MD JEAN JORGE ([id number]) on 02/09/2017 2:02:14 PM Lactic acid, venous, whole blood (02/09/2017 6:19 AM)Only the most recent of2 resultswithin the time period is included. Component Value Ref Range Lactate, Venous 0.9 0.5 - 2.2 mmol/L Specimen Performing Laboratory Blood - Arm, [address] [address] Narrative Effective 12/02/2015: Units/Reference Range Change New: 0.5-2.2 mmol/LPrevious: 5-20 mg/dL Blood culture (02/09/2017 6:19 AM)Only the most recent of2 resultswithin the time period is included. Component Value Ref Range Result No growth in 5 days Specimen Performing Laboratory Blood - Arm, [address] [address] 2D Echo W/Doppler(CW/PW/Color) (02/08/2017 6:00 PM) Specimen Performing Laboratory DIGISONICS Narrative Echocardiography Laboratory [address] [place], [place] [address] [address] Voice:[phone] Transthoracic Echocardiogram Pat.Name:SHAN BROOKS.ID:[id number] .Date: 02/08/2017 Refer.MD:WALESKA MALCOLM Exam Time: 6:00:00 PMStudy Type:Echo Complete Height:69inWeight: 183lb BSA: 1.99 m2 DOBAge:1945,71Y Sex: MALEBP:118/58 HR:72 bpmSonogrphr: Bella Castellanos [facility] Pat. Stat.:Inpatient Room:[facility] Reason for Study:Shortness of breath History / [...] cm LVOT LVOT 2.1 cm Parasternal Long [place] IVSd 0.976 cmLVPWd0.706 cm LVIDd 4.84 cm (4.3-5.1) LA Ds 3.08 cm (2.3-3.9) LVIDs 2.52 cm (2-4)LV Wmn 0.841 cm LV%fs 47.9 %(25-46)* DOPPLER AV LVOT For Flow WQXCdeOwy862 cm/s (70-110)* LVOT CO 6.66 l/min LVOT VTI21.2 cmLVOT CI 3.35 l/min/m2 LVOTpkPG7.11 mmHgLVOT Area 3.46 cm2 LVOTmnPG3.75 rqRyVB14 bpm LVOT SV 73.5 ml Aortic Valve AV DI0.838 SVi (LVOT)37 AV AV For Flow/PAVEL AV pkVel 156 cm/s (100-170) AV AC/ET 0.0935 AV mnVel 108 cm/sAVpkAcRt [address]9029 cm/s2 AV pkPG 9.79 mmHgAV DeRt 669 [...] - 02/09/2017 9:03 AM CDT Echocardiography Laboratory [address] [place] [address] Voice: [phone] Transthoracic Echocardiogram Pat.Name: SHAN BROOKS Pat.ID: [id number] .Date: 02/08/2017 Refer.MD: WALESAK MALCOLM Exam Time: 6:00:00 PM Study Type:Echo Complete Height: 69in Weight: 183lb BSA: 1.99 m2 Age: 8 1945,71Y Sex: MALE BP: 118/58 HR: 72 bpm Sonogrphr: Bella Castellanos [facility] Pat. Stat.:Inpatient Room: [facility] Reason for Study:Shortness of breath History / [...] cm LVOT LVOT 2.1 cm Parasternal Long [place] IVSd 0.976 cm LVPWd 0.706 cm LVIDd [...] AC/ET 0.0935 AV mnVel 108 cm/s AVpkAcRt 09253 cm/s2 AV pkPG 9.79 mmHg AV DeRt [...] Specimen Performing Laboratory Blood - Line, Venous [address] [address] Narrative Effective 06/17/2014: Reference Range Change New: Male 5-275Previous: Male 22-322 Female 5-275Female 10-291 Phosphorus (02/08/2017 5:02 AM)Only the most recent of2 resultswithin the time period is included. Component Value Ref Range Phosphorus 3.9 2.3 - 4.7 mg/dL Specimen Performing Laboratory Blood - Arm, Left [address] [address] Magnesium (02/08/2017 5:02 AM)Only the most recent of2 resultswithin the time period is included. Component Value Ref Range Magnesium 2.2 1.6 - 2.6 mg/dL Specimen Performing Laboratory Blood - Arm, [address] [address] Hepatic function panel (02/08/2017 5:02 AM)Only the [...] 55 U/L Specimen Performing Laboratory Blood - [address] [address] TSH/Free T4 If Indicated (02/07/2017 5:29 AM) Component Value Ref Range TSH 2.93 0.35 - 4.94 uIU/mL Specimen Performing Laboratory Blood - Arm, [address] [address] C-Reactive Protein (02/07/2017 5:29 AM) Component Value Ref Range CRP 13.33 (H) 0.00 - 0.50 mg/dL Specimen Performing Laboratory Blood - [facility], [address] [address] Troponin I (02/07/2017 5:29 AM) Component Value Ref Range Troponin I <0.01 0.00 - 0.03 ng/mL Specimen Performing Laboratory Blood - Arm, [address] [address] Narrative Effective 06/17/2014: Reference Range Change New: [...] mm/HR Specimen Performing Laboratory Blood - Arm, [address] [address] Hemoglobin A1c (02/07/2017 5:29 AM) Component Value Ref Range Hemoglobin A1C 5.4 4.3 - 6.1 % Specimen Performing Laboratory Blood - Arm, [address] [address] Vitamin B12 (02/07/2017 5:29 AM) Component Value Ref Range Vitamin B12 266 213 - 816 pg/mL Specimen Performing Laboratory Blood - Arm, [address] [address] Creatine Kinase (CK), Total and MB (02/07/2017 5:29 AM) Component Value Ref Range Total CK 18 (L) 29 - 200 U/L CK-MB 0.6 0.0 - 6.6 ng/mL MB Relative Index 3.3 % Specimen Performing Laboratory Blood - Arm, [address] [address] Narrative Effective 06/17/2014: CK-MB Reference Range Change New: 0.0-6.6Previous: 0.0-4.9 CK-MB Reference Range: <6.7Normal 6.7-10.0Borderline >10.0 Abnormal Lipid panel (02/07/2017 5:29 AM) Component Value Ref Range Triglycerides 78 mg/dL Cholesterol 115 mg/dL HDL 38 mg/dL LDL Calculated 61 mg/dL Specimen Performing Laboratory Blood - Arm, [address] [address] Narrative Triglyceride Reference Range: Low Risk <150 Sromxmjicx871-560 High Risk 200-499 Very High Risk>=500 Cholesterol Reference Range: Low Risk <200 Uqfxctywpp926-104 High Risk>240 HDL Cholesterol Reference Range: Low Risk >=60 High Risk <40 LDL Cholesterol Reference Range: Optimal<100 Near Oadnfml433-803 Bthnqpctys368-384 Frbk843-725 Very High >=190 Urine culture (02/07/2017 1:36 AM) Component Value Ref Range Result No growth Specimen Performing Laboratory Urine - Urine, Clean Catch [facility] [address] [place] [address], [place] [address] Urinalysis w/Microscopic - Clean Catch (02/06/2017 10:49 PM) Component Value Ref Range Color, UA Red Clarity, UA Turbid Specific [place], UA 1.015 1.001 - 1.035 pH, UA [...] [facility] [address] [place] [address] after 02/01/2017
--- OUTSIDE RECORDS SUMMARY | 2018-02-02 10:37 | XMS REPORT ---
:1945 Author Organization [facility] Address [address] [place] [address] Dr. Kumar [address] [place] [id number] Care Team Providers Name Role Phone SAMANTHA GONZALEZ Unavailable Unavailable CALLIE LARA Unavailable Unavailable Problems This patient has no known problems. Allergies, Adverse Reactions, Alerts This patient has no known allergies or adverse reactions. Medications This patient has no known medications. Results Test Description Test Time Test Comments Text Results Atomic Results Result Comments TISSUE EXAM 2017-03-10 17:31:00 Surgical Pathology Report Case: [id number] Authorizing Provider: Samantha Gonzalez MD Collected: 03/01/2017 1218 Ordering Location: [facility] Received: 03/01/2017 1302 SERVICES Pathologist: Nancy [...] MALIGNANCY (0/3) Signing Pathologist Direct Phone Line: [phone] signed by Nancy Malone MD on 03/10/2017 [...] Kidney: Tubulointerstitial disease (specify type): Focal chronic ubpgiuikthss32218 X 2, 98690 X 2, 64557; 71954 x3, 23956Xqqof hematuria, left renal mass thoracoabdominalProcedure: Nephrostomy, cystoscopy, [...] subepithelial tissue. A touch preparation is performed. Billet Straightener sections are submitted in FSB1 and B2. [...] greatest dimension left in the inferior pole. Billet Straightener sections are submitted. E1, vascular margin and [...] Comments WHITE BLOOD CELL COUNT (BEAKER) (test nmjz=880) 7.5 K/ L 3.5-10.5 RED BLOOD CELL COUNT (BEAKER) (test xhkv=943) 3.23 M/ L 4.63-6.08 HEMOGLOBIN (BEAKER) (test ucqf=544) 8.5 GM/DL 13.7-17.5 HEMATOCRIT (BEAKER) (test ujqv=589) 28.2 % 40.1-51.0 MEAN CORPUSCULAR VOLUME (BEAKER) (test mgxc=009) 87.3 fL 79.0-92.2 MEAN CORPUSCULAR HEMOGLOBIN (BEAKER) (test wbvk=916) 26.3 pg 25.7-32.2 MEAN CORPUSCULAR HEMOGLOBIN CONC (BEAKER) (test jofk=162) 30.1 GM/DL 32.3- 36.5 RED CELL DISTRIBUTION WIDTH (BEAKER) (test tdce=746) 16.5 % 11.6-14.4 PLATELET COUNT (BEAKER) (test zghy=659) 241 K/CU MM 150-450 MEAN PLATELET VOLUME (BEAKER) (test xany=637) 10.2 fL 9.4-12.4 NUCLEATED RED BLOOD CELLS (BEAKER) (test zedu=282) 0 /100 WBC 0-0 NEUTROPHILS RELATIVE PERCENT (BEAKER) (test nuaf=979) 47 % LYMPHOCYTES RELATIVE PERCENT (BEAKER) (test vgbw=932) 22 % MONOCYTES RELATIVE PERCENT (BEAKER) (test yiqi=568) 26 % EOSINOPHILS RELATIVE PERCENT (BEAKER) (test unnj=349) 1 % BASOPHILS RELATIVE PERCENT (BEAKER) (test ifra=807) 0 % NEUTROPHILS ABSOLUTE COUNT (BEAKER) (test ozqr=173) 3.50 K/ L 1.78-5.38 LYMPHOCYTES ABSOLUTE COUNT (BEAKER) (test zihb=678) 1.64 K/ L 1.32-3.57 MONOCYTES ABSOLUTE COUNT (BEAKER) (test keiz=231) 1.95 K/ L 0.30-0.82 EOSINOPHILS ABSOLUTE COUNT (BEAKER) (test iqcv=617) 0.10 K/ L 0.04-0.54 BASOPHILS ABSOLUTE COUNT (BEAKER) (test ojgh=349) 0.02 K/ L 0.01-0.08 IMMATURE GRANULOCYTES-RELATIVE PERCENT (BEAKER) (test 4 % 0-1 dlua=1246) (MANUAL DIFFERENTIAL)2017 08:13:00 Test Item Value Reference Range Comments TOTAL COUNTED (BEAKER) (test cjsn=9193) WBC MORPHOLOGY (BEAKER) (test rqmt=424) Normal PLT MORPHOLOGY (BEAKER) (test cclu=010) Normal RBC MORPHOLOGY (BEAKER) (test kqsn=544) Normal BASIC METABOLIC [id number] 05:12:00 Test Item Value Reference Range Comments SODIUM (BEAKER) (test 138 meq/L 136-145 njmp=624) POTASSIUM (BEAKER) (test 3.9 meq/L 3.5-5.1 fgaw=765) CHLORIDE (BEAKER) (test 107 meq/L 98-107 rsxm=217) CO2 (BEAKER) (test 22 meq/L 22-29 awxo=507) BLOOD UREA NITROGEN 10 mg/dL 7-21 (BEAKER) (test foqq=886) CREATININE (BEAKER) (test 0.99 mg/dL 0.57-1.25 mpnb=343) GLUCOSE RANDOM (BEAKER) 85 mg/dL 70-105 (test phrd=548) CALCIUM (BEAKER) (test 8.5 mg/dL 8.4-10.2 xkyr=407) EGFR (BEAKER) (test 74 mL/min/1.73 sq m ESTIMATED GFR IS NOT uxqh=8436) ACCURATE CREATININE CLEARANCE IN PREDICTING GLOMERULAR FILTRATION RATE. ESTIMATED GFR IS NOT APPLICABLE FOR DIALYSIS PATIENTS. HEMOGLOBIN AND [id number] 12:44:00 Test Item Value Reference Range Comments HEMOGLOBIN (BEAKER) (test jnfx=173) 8.6 GM/DL 13.7-17.5 HEMATOCRIT (BEAKER) (test jebl=298) 28.1 % 40.1-51.0 CBC W/PLT COUNT & AUTO [id number] 09:06:00 Test Item Value Reference Range Comments WHITE BLOOD CELL COUNT (BEAKER) (test bjkc=718) 13.1 K/ L 3.5-10.5 RED BLOOD CELL COUNT (BEAKER) (test byii=779) 3.16 M/ L 4.63-6.08 HEMOGLOBIN (BEAKER) (test ewux=928) 8.4 GM/DL 13.7-17.5 HEMATOCRIT (BEAKER) (test mbdn=942) 27.8 % 40.1-51.0 MEAN CORPUSCULAR VOLUME (BEAKER) (test pxbk=771) 88.0 fL 79.0-92.2 MEAN CORPUSCULAR HEMOGLOBIN (BEAKER) (test 26.6 pg 25.7-32.2 egwe=101) MEAN CORPUSCULAR HEMOGLOBIN CONC (BEAKER) (test 30.2 GM/DL 32.3-36.5 lfag=431) RED CELL DISTRIBUTION WIDTH (BEAKER) (test 16.4 % 11.6-14.4 yvic=375) PLATELET COUNT (BEAKER) (test hujo=521) 255 K/CU MM 150-450 MEAN PLATELET VOLUME (BEAKER) (test zyfz=145) 10.5 fL 9.4-12.4 NUCLEATED RED BLOOD CELLS (BEAKER) (test 0 /100 WBC 0-0 ocbg=442) NEUTROPHILS RELATIVE PERCENT (BEAKER) (test 60 % najo=414) LYMPHOCYTES RELATIVE PERCENT (BEAKER) (test 11 % fcyj=432) MONOCYTES RELATIVE PERCENT (BEAKER) (test 26 % gbap=789) EOSINOPHILS RELATIVE PERCENT (BEAKER) (test 1 % adbl=232) BASOPHILS RELATIVE PERCENT (BEAKER) (test 0 % gnbs=438) NEUTROPHILS ABSOLUTE COUNT (BEAKER) (test 7.83 K/ L 1.78-5.38 msrt=665) LYMPHOCYTES ABSOLUTE COUNT (BEAKER) (test 1.45 K/ L 1.32-3.57 icsy=375) MONOCYTES ABSOLUTE COUNT (BEAKER) (test 3.47 K/ L 0.30-0.82 xyvi=558) EOSINOPHILS ABSOLUTE COUNT (BEAKER) (test 0.09 K/ L 0.04-0.54 tmtt=868) BASOPHILS ABSOLUTE COUNT (BEAKER) (test 0.02 K/ L 0.01-0.08 trto=846) IMMATURE GRANULOCYTES-RELATIVE PERCENT (BEAKER) 2 % 0-1 (test fnqj=8667) (MANUAL DIFFERENTIAL)2017-03-03 09:06:00 Test Item Value Reference Range Comments TOTAL COUNTED (BEAKER) (test nnef=5830) WBC MORPHOLOGY (BEAKER) (test gkfd=826) Normal PLT MORPHOLOGY (BEAKER) (test beln=839) Normal RBC MORPHOLOGY (BEAKER) (test wssg=590) Normal BASIC METABOLIC [id number] 05:29:00 Test Item Value Reference Range Comments SODIUM (BEAKER) (test 136 meq/L 136-145 kzjs=378) POTASSIUM (BEAKER) (test 4.3 meq/L 3.5-5.1 wfeg=591) CHLORIDE (BEAKER) (test 110 meq/L 98-107 pdng=234) CO2 (BEAKER) (test 20 meq/L 22-29 agbx=527) BLOOD UREA NITROGEN 13 mg/dL 7-21 (BEAKER) (test nhfv=644) CREATININE (BEAKER) (test 1.07 mg/dL 0.57-1.25 ljcm=278) GLUCOSE RANDOM (BEAKER) 85 mg/dL 70-105 (test pbfm=565) CALCIUM (BEAKER) (test 8.2 mg/dL 8.4-10.2 ysrr=279) EGFR (BEAKER) (test 68 mL/min/1.73 sq m ESTIMATED GFR IS NOT hkzk=3732) ACCURATE CREATININE CLEARANCE IN PREDICTING GLOMERULAR FILTRATION RATE. ESTIMATED GFR IS NOT APPLICABLE FOR DIALYSIS PATIENTS. BASIC METABOLIC [id number] 05:14:00 Test Item Value Reference Range Comments SODIUM (BEAKER) (test 138 meq/L 136-145 tsnh=625) POTASSIUM (BEAKER) (test 4.7 meq/L 3.5-5.1 dwdo=795) CHLORIDE (BEAKER) (test 110 meq/L 98-107 scpl=527) CO2 (BEAKER) (test 19 meq/L 22-29 urcf=538) BLOOD UREA NITROGEN 13 mg/dL 7-21 (BEAKER) (test dtnt=976) CREATININE (BEAKER) (test 1.11 mg/dL 0.57-1.25 ocrd=709) GLUCOSE RANDOM (BEAKER) 141 mg/dL 70-105 (test itnz=385) CALCIUM (BEAKER) (test 8.4 mg/dL 8.4-10.2 vozr=264) EGFR (BEAKER) (test 65 mL/min/1.73 sq m ESTIMATED GFR IS NOT apdk=6182) ACCURATE CREATININE CLEARANCE IN PREDICTING GLOMERULAR FILTRATION RATE. ESTIMATED GFR IS NOT APPLICABLE FOR DIALYSIS PATIENTS. CBC W/PLT COUNT & AUTO [id number] 04:53:00 Test Item Value Reference Range Comments WHITE BLOOD CELL COUNT (BEAKER) (test ibdr=908) 22.5 K/ L 3.5-10.5 RED BLOOD CELL COUNT (BEAKER) (test risl=409) 3.58 M/ L 4.63-6.08 HEMOGLOBIN (BEAKER) (test ofte=643) 9.5 GM/DL 13.7-17.5 HEMATOCRIT (BEAKER) (test pgzo=817) 31.0 % 40.1-51.0 MEAN CORPUSCULAR VOLUME (BEAKER) (test rtdn=807) 86.6 fL 79.0-92.2 MEAN CORPUSCULAR HEMOGLOBIN (BEAKER) (test 26.5 pg 25.7-32.2 cncr=339) MEAN CORPUSCULAR HEMOGLOBIN CONC (BEAKER) (test 30.6 GM/DL 32.3-36.5 zzrq=764) RED CELL DISTRIBUTION WIDTH (BEAKER) (test 15.9 % 11.6-14.4 wmtp=188) PLATELET COUNT (BEAKER) (test kehy=511) 281 K/CU MM 150-450 MEAN PLATELET VOLUME (BEAKER) (test njtu=459) 10.2 fL 9.4-12.4 NUCLEATED RED BLOOD CELLS (BEAKER) (test 0 /100 WBC 0-0 gjvz=387) NEUTROPHILS RELATIVE PERCENT (BEAKER) (test 71 % edqu=652) LYMPHOCYTES RELATIVE PERCENT (BEAKER) (test 5 % lcgu=065) MONOCYTES RELATIVE PERCENT (BEAKER) (test 22 % jwaj=093) EOSINOPHILS RELATIVE PERCENT (BEAKER) (test 0 % olav=843) BASOPHILS RELATIVE PERCENT (BEAKER) (test 0 % wzux=350) NEUTROPHILS ABSOLUTE COUNT (BEAKER) (test 15.83 K/ L 1.78-5.38 czuq=339) LYMPHOCYTES ABSOLUTE COUNT (BEAKER) (test 1.08 K/ L 1.32-3.57 fjgs=847) MONOCYTES ABSOLUTE COUNT (BEAKER) (test 4.99 K/ L 0.30-0.82 dfze=300) EOSINOPHILS ABSOLUTE COUNT (BEAKER) (test 0.00 K/ L 0.04-0.54 gqff=229) BASOPHILS ABSOLUTE COUNT (BEAKER) (test 0.02 K/ L 0.01-0.08 tprr=647) IMMATURE GRANULOCYTES-RELATIVE PERCENT (BEAKER) 2 % 0-1 (test ufje=1608) BASIC METABOLIC [id number] 18:30:00 Test Item Value Reference Range Comments SODIUM (BEAKER) (test 139 meq/L 136-145 zqvh=450) POTASSIUM (BEAKER) (test 4.6 meq/L 3.5-5.1 xmum=719) CHLORIDE (BEAKER) (test 109 meq/L 98-107 zydj=722) CO2 (BEAKER) (test 23 meq/L 22-29 yhzx=418) BLOOD UREA NITROGEN 14 mg/dL 7-21 (BEAKER) (test brfy=487) CREATININE (BEAKER) (test 1.03 mg/dL 0.57-1.25 rfnh=283) GLUCOSE RANDOM (BEAKER) 157 mg/dL 70-105 (test kwap=068) CALCIUM (BEAKER) (test 7.9 mg/dL 8.4-10.2 hpej=623) EGFR (BEAKER) (test 71 mL/min/1.73 sq m ESTIMATED GFR IS NOT zlvg=5870) ACCURATE CREATININE CLEARANCE IN PREDICTING GLOMERULAR FILTRATION RATE. ESTIMATED GFR IS NOT APPLICABLE FOR DIALYSIS PATIENTS. HEMOGLOBIN AND [id number] 18:12:00 Test Item Value Reference Range Comments HEMOGLOBIN (BEAKER) (test brje=145) 10.1 GM/DL 13.7-17.5 HEMATOCRIT (BEAKER) (test oppb=752) 31.9 % 40.1-51.0 HGB/HCT (H&H) - STAT [id number] 16:50:00 Test Item Value Reference Range Comments HEMOGLOBIN (BEAKER) (test jvxv=851) 10.4 g/dL 13.0-16.8 HEMATOCRIT (BEAKER) (test avrq=565) 31.0 % 40.0-50.0 SODIUM NA-STAT [id number] 12:35:00 Test Item Value Reference Range Comments SODIUM (BEAKER) (test obzj=222) 137 meq/L 135-148 POTASSIUM-STAT [id number] 12:35:00 Test Item Value Reference Range Comments POTASSIUM (BEAKER) (test slpu=768) 4.1 meq/L 3.6-5.5 CALCIUM, [id number] 12:35:00 Test Item Value Reference Range Comments CALCIUM IONIZED (BEAKER) (test csve=743) 1.12 mmol/L 1.12-1.27 PH, BLOOD (BEAKER) (test bnlp=4144) 7.42 BLOOD GAS, [id number] 12:35:00 Test Item Value Reference Range Comments PH ARTERIAL (BEAKER) (test pzgf=773) 7.42 7.35-7.45 PCO2 ARTERIAL (BEAKER) (test pymb=706) 41 mmHg 35-45 PO2 ARTERIAL (BEAKER) (test zsgr=468) 296 mmHg 80-90 O2 SATURATION ARTERIAL (BEAKER) (test lkpu=679) 99.7 % 96.0-97.0 HCO3 ARTERIAL (BEAKER) (test pvwm=653) 26 mmol/L 21-29 BASE EXCESS ARTERIAL (BEAKER) (test zvuc=500) 1.4 mmol/L -2.0-3.0 PATIENT TEMPERATURE (BEAKER) (test ukyn=7641) 37.0 C FIO2 (BEAKER) (test tjrk=9957) 100.0 % GLUCOSE-STAT [id number] 12:35:00 Test Item Value Reference Range Comments GLUCOSE RANDOM (BEAKER) (test kkjv=423) 114 mg/dL 70-110 HGB/HCT (H&H) - STAT [id number] 12:35:00 Test Item Value Reference Range Comments HEMOGLOBIN (BEAKER) (test cftu=233) 8.7 g/dL 13.0-16.8 HEMATOCRIT (BEAKER) (test oifa=261) 26.0 % 40.0-50.0 [id number] 17:04:00Medical Cytology Report Case: [id number] Authorizing Provider: Tonny Pace MD Collected: 02/13/2017 1507 Ordering Location: [address] Received: 02/14/2017 0852 Service Pathologist: Brody Lopez MD Specimen: Urine, Bladder Wash URINE, BLADDER WASH (CYTOSPINS): - NEGATIVE FOR DYSPLASTIC/MALIGNANT CELLS Signing Pathologist Direct Phone Line: [phone] signed by Brody Lopez MD on 02/14/2017 at 5:04 [id number] left renal cell cancerURINE, BLADDER WASH (CYTOSPINS)40 mls yellow; 4 cytospinsCollected: [id number]: [id number]US [facility] [place], [facility], [address] [place] [address], [facility], [facility], [address] [place] [address], [id number] 13:43:00Medical Cytology Report Case: [id number] Authorizing Provider: iDnesh Curry MD Collected: 2016 0917 Ordering Location: [address] Received : 02/13/2017 0917 Service Pathologist: Brody Lopez MD Specimen: Pleural, Right RIGHT PLEURAL FLUID (CYTOSPINS AND CELL BLOCK): - NO MALIGNANT CELLS IDENTIFIED CHRONIC INFLAMMATION PRESENTSigning Pathologist Direct Phone Line: [phone] signed by Brody Lopez MD on 02/14/2017 at 1:43 [id number], [id number] pleural effusion, diagnosed with renal cell carcinoma in December [address] scan when he had gross hematuria.RIGHT PLEURAL FLUID (CYTOSPINS AND CELL BLOCK)400 mls light brown; 4 cytospins, cell blockCollected: [id number]: [id number]US [facility] [place], [facility] of [facility], [address] [place] [address], [facility]dl[facility], [facility] of [facility], [address] [place] [address], ARKQN [id number] 11:00:00 Test Item Value Reference Range Comments CULTURE (BEAKER) (test ytdk=7079) No growth in 5 days BLOOD [id number] 06:00:00 Test Item Value Reference Range Comments CULTURE (BEAKER) (test zfyh=3728) No growth in 5 days CBC W/PLT COUNT & AUTO [id number] 10:41:00 Test Item Value Reference Range Comments WHITE BLOOD CELL COUNT (BEAKER) (test lldz=244) 7.2 K/ L 4.0-10.0 RED BLOOD CELL COUNT (BEAKER) (test ealp=330) 3.35 M/ L 4.20-5.80 HEMOGLOBIN (BEAKER) (test qobw=959) 9.1 GM/DL 13.0-16.8 HEMATOCRIT (BEAKER) (test iqzb=794) 28.7 % 40.0-50.0 MEAN CORPUSCULAR VOLUME (BEAKER) (test libd=202) 85.6 fL 82.0-98.0 MEAN CORPUSCULAR HEMOGLOBIN (BEAKER) (test 27.1 pg 27.0-33.0 pvjv=392) MEAN CORPUSCULAR HEMOGLOBIN CONC (BEAKER) (test 31.6 GM/DL 32.0-36.0 jezz=150) RED CELL DISTRIBUTION WIDTH (BEAKER) (test 16.0 % 10.3-14.2 sgbh=515) PLATELET COUNT (BEAKER) (test twhz=776) 260 K/CU MM 150-430 MEAN PLATELET VOLUME (BEAKER) (test yrwe=553) 7.5 fL 6.5-10.5 NUCLEATED RED BLOOD CELLS (BEAKER) (test 0 /100 WBC 0-0 wqqg=510) NEUTROPHILS RELATIVE PERCENT (BEAKER) (test 47 % nkjv=948) LYMPHOCYTES RELATIVE PERCENT (BEAKER) (test 20 % rmbw=976) MONOCYTES RELATIVE PERCENT (BEAKER) (test 30 % xirv=657) EOSINOPHILS RELATIVE PERCENT (BEAKER) (test 2 % kzcb=777) BASOPHILS RELATIVE PERCENT (BEAKER) (test 1 % iinj=342) NEUTROPHILS ABSOLUTE COUNT (BEAKER) (test 3.39 K/ L 1.80-8.00 oszz=062) LYMPHOCYTES ABSOLUTE COUNT (BEAKER) (test 1.42 K/ L 1.48-4.50 hjtb=837) MONOCYTES ABSOLUTE COUNT (BEAKER) (test 2.19 K/ L 0.00-1.30 mjui=080) EOSINOPHILS ABSOLUTE COUNT (BEAKER) (test 0.15 K/ L 0.00-0.50 lmdg=669) BASOPHILS ABSOLUTE COUNT (BEAKER) (test 0.04 K/ L 0.00-0.20 wueg=951) 0.000.540.000.000.000.000.000.00(MANUAL DIFFERENTIAL)2017-02-13 10:41:00 Test Item Value Reference Range Comments TOTAL COUNTED (BEAKER) (test kmdd=6694) WBC MORPHOLOGY (BEAKER) (test jgwz=701) Normal PLT MORPHOLOGY (BEAKER) (test bxko=502) Normal RBC MORPHOLOGY (BEAKER) (test hbso=806) Normal BASIC METABOLIC [id number] 05:55:00 Test Item Value Reference Range Comments SODIUM (BEAKER) (test 134 meq/L 136-145 gfmi=361) POTASSIUM (BEAKER) (test 3.8 meq/L 3.5-5.1 iiuo=184) CHLORIDE (BEAKER) (test 103 meq/L 98-107 jlnj=228) CO2 (BEAKER) (test 21 meq/L 22-29 ubkr=908) BLOOD UREA NITROGEN 8 mg/dL 7-21 (BEAKER) (test urni=277) CREATININE (BEAKER) (test 0.85 mg/dL 0.57-1.25 tswf=369) GLUCOSE RANDOM (BEAKER) 96 mg/dL 70-105 (test mytb=389) CALCIUM (BEAKER) (test 9.0 mg/dL 8.4-10.2 bjgd=506) EGFR (BEAKER) (test 89 mL/min/1.73 sq m ESTIMATED GFR IS NOT proa=1667) ACCURATE CREATININE CLEARANCE IN PREDICTING GLOMERULAR FILTRATION RATE. ESTIMATED GFR IS NOT APPLICABLE FOR DIALYSIS PATIENTS. CBC (HEMOGRAM ONLY)2017-02-12 07:58:00 Test Item Value Reference Range Comments WHITE BLOOD CELL COUNT (BEAKER) (test zuxc=610) 6.5 K/ L 4.0-10.0 RED BLOOD CELL COUNT (BEAKER) (test ctbl=499) 3.28 M/ L 4.20-5.80 HEMOGLOBIN (BEAKER) (test dbxg=624) 8.8 GM/DL 13.0-16.8 HEMATOCRIT (BEAKER) (test iszu=914) 28.0 % 40.0-50.0 MEAN CORPUSCULAR VOLUME (BEAKER) (test ssuc=647) 85.3 fL 82.0-98.0 MEAN CORPUSCULAR HEMOGLOBIN (BEAKER) (test 26.8 pg 27.0-33.0 qlyt=227) MEAN CORPUSCULAR HEMOGLOBIN CONC (BEAKER) (test 31.4 GM/DL 32.0-36.0 giln=160) RED CELL DISTRIBUTION WIDTH (BEAKER) (test 15.7 % 10.3-14.2 vmsc=307) PLATELET COUNT (BEAKER) (test ocep=260) 245 K/CU MM 150-430 MEAN PLATELET VOLUME (BEAKER) (test ggyh=794) 7.5 fL 6.5-10.5 NUCLEATED RED BLOOD CELLS (BEAKER) (test 0 /100 WBC 0-0 upal=506) 0.000.560.000.000.000.000.000.00BASIC METABOLIC [id number] 07:21:00 Test Item Value Reference Range Comments SODIUM (BEAKER) (test 136 meq/L 136-145 hxtk=363) POTASSIUM (BEAKER) (test 3.7 meq/L 3.5-5.1 cypo=673) CHLORIDE (BEAKER) (test 105 meq/L 98-107 umoe=826) CO2 (BEAKER) (test 22 meq/L 22-29 qjmn=453) BLOOD UREA NITROGEN 8 mg/dL 7-21 (BEAKER) (test rfpp=961) CREATININE (BEAKER) (test 0.85 mg/dL 0.57-1.25 mhvj=347) GLUCOSE RANDOM (BEAKER) 98 mg/dL 70-105 (test pujt=033) CALCIUM (BEAKER) (test 8.6 mg/dL 8.4-10.2 hxxr=402) EGFR (BEAKER) (test 89 mL/min/1.73 sq m ESTIMATED GFR IS NOT wqim=6811) ACCURATE CREATININE CLEARANCE IN PREDICTING GLOMERULAR FILTRATION RATE. ESTIMATED GFR IS NOT APPLICABLE FOR DIALYSIS PATIENTS. PT/[id number] 06:48:00 Test Item Value Reference Range Comments PROTIME (BEAKER) (test tkvt=437) 16.7 seconds 11.7-14.7 INR (BEAKER) (test edek=508) 1.4 <=5.9 PARTIAL THROMBOPLASTIN TIME (BEAKER) (test 36.2 seconds 22.5-36.0 afla=874) RECOMMENDED COUMADIN/WARFARIN INR THERAPY RANGESSTANDARD DOSE: 2.0 - 3.0 Includes: PROPHYLAXIS forvenous thrombosis, systemic embolization; TREATMENT for venous thrombosis and/or pulmonary embolus.HIGH RISK: Target INR is 2.5-3.5 for patients with mechanical heart valves.For thoracentesis prepFor thoracentesis prepCBC (HEMOGRAM ONLY)2017-02-10 06:42:00 Test Item Value Reference Range Comments WHITE BLOOD CELL COUNT (BEAKER) (test mfth=086) 8.0 K/ L 4.0-10.0 RED BLOOD CELL COUNT (BEAKER) (test fzkf=401) 3.12 M/ L 4.20-5.80 HEMOGLOBIN (BEAKER) (test xslw=596) 9.0 GM/DL 13.0-16.8 HEMATOCRIT (BEAKER) (test bmxz=687) 26.7 % 40.0-50.0 MEAN CORPUSCULAR VOLUME (BEAKER) (test wrnu=520) 85.6 fL 82.0-98.0 MEAN CORPUSCULAR HEMOGLOBIN (BEAKER) (test 28.8 pg 27.0-33.0 qhpw=725) MEAN CORPUSCULAR HEMOGLOBIN CONC (BEAKER) (test 33.7 GM/DL 32.0-36.0 oqiz=345) RED CELL DISTRIBUTION WIDTH (BEAKER) (test 16.8 % 10.3-14.2 jsjx=819) PLATELET COUNT (BEAKER) (test dszr=242) 233 K/CU MM 150-430 MEAN PLATELET VOLUME (BEAKER) (test vkhn=071) 7.9 fL 6.5-10.5 NUCLEATED RED BLOOD CELLS (BEAKER) (test 0 /100 WBC 0-0 mcrn=214) 0.000.510.000.000.000.00BASI METABOLIC [id number] 06:03:00 Test Item Value Reference Range Comments SODIUM (BEAKER) (test 133 meq/L 136-145 acew=326) POTASSIUM (BEAKER) (test 4.0 meq/L 3.5-5.1 xmxf=743) CHLORIDE (BEAKER) (test 104 meq/L 98-107 ekze=566) CO2 (BEAKER) (test 21 meq/L 22-29 vtsn=239) BLOOD UREA NITROGEN 14 mg/dL 7-21 (BEAKER) (test unpj=789) CREATININE (BEAKER) (test 0.91 mg/dL 0.57-1.25 wdsq=607) GLUCOSE RANDOM (BEAKER) 100 mg/dL 70-105 (test bibp=802) CALCIUM (BEAKER) (test 8.6 mg/dL 8.4-10.2 tpkv=973) EGFR (BEAKER) (test 82 mL/min/1.73 sq m ESTIMATED GFR IS NOT kmwp=5767) ACCURATE CREATININE CLEARANCE IN PREDICTING GLOMERULAR FILTRATION RATE. ESTIMATED GFR IS NOT APPLICABLE FOR DIALYSIS PATIENTS. URINE [id number] 08:51:00 Test Item Value Reference Range Comments CULTURE (BEAKER) (test jcrt=6499) No growth LACTIC ACID, VENOUS, WHOLE [id number] 07:19:00 Test Item Value Reference Range Comments LACTATE BLOOD VENOUS (2) (BEAKER) (test 0.9 mmol/L 0.5-2.2 vrht=4154) Effective 12/02/2015: Units/Reference Range ChangeNew: 0.5-2.2 mmol/L Previous: 5 -20 mg/dLBASIC METABOLIC [id number] 01:32:00 Test Item Value Reference Range Comments SODIUM (BEAKER) (test 132 meq/L 136-145 nyds=460) POTASSIUM (BEAKER) (test 4.3 meq/L 3.5-5.1 sklw=677) CHLORIDE (BEAKER) (test 98 meq/L 98-107 mgnb=507) CO2 (BEAKER) (test 25 meq/L 22-29 lybl=128) BLOOD UREA NITROGEN 20 mg/dL 7-21 (BEAKER) (test agsd=473) CREATININE (BEAKER) (test 1.31 mg/dL 0.57-1.25 ysxo=577) GLUCOSE RANDOM (BEAKER) 118 mg/dL 70-105 (test mrsu=946) CALCIUM (BEAKER) (test 9.7 mg/dL 8.4-10.2 ewka=066) EGFR (BEAKER) (test 54 mL/min/1.73 sq m ESTIMATED GFR IS NOT hqrb=3928) ACCURATE CREATININE CLEARANCE IN PREDICTING GLOMERULAR FILTRATION RATE. ESTIMATED GFR IS NOT APPLICABLE FOR DIALYSIS PATIENTS. LACTIC ACID, VENOUS, WHOLE [id number] 01:29:00 Test Item Value Reference Range Comments LACTATE BLOOD VENOUS (2) 2.6 mmol/L 0.5-2.2 Specimen slightly hemolyzed (BEAKER) (test mxlh=3690) Effective 12/02/2015: Units/Reference Range ChangeNew: 0.5-2.2 mmol/L Previous: 5 -20 mg/dLCBC (HEMOGRAM ONLY)2017-02-09 01:21:00 Test Item Value Reference Range Comments WHITE BLOOD CELL COUNT (BEAKER) (test keuo=529) 18.7 K/ L 4.0-10.0 RED BLOOD CELL COUNT (BEAKER) (test yfhm=632) 3.66 M/ L 4.20-5.80 HEMOGLOBIN (BEAKER) (test frzw=544) 10.1 GM/DL 13.0-16.8 HEMATOCRIT (BEAKER) (test arsi=463) 31.6 % 40.0-50.0 MEAN CORPUSCULAR VOLUME (BEAKER) (test eufe=088) 86.1 fL 82.0-98.0 MEAN CORPUSCULAR HEMOGLOBIN (BEAKER) (test 27.5 pg 27.0-33.0 jcje=526) MEAN CORPUSCULAR HEMOGLOBIN CONC (BEAKER) (test 31.9 GM/DL 32.0-36.0 kuqr=054) RED CELL DISTRIBUTION WIDTH (BEAKER) (test 17.1 % 10.3-14.2 yqig=606) PLATELET COUNT (BEAKER) (test gnji=593) 281 K/CU MM 150-430 MEAN PLATELET VOLUME (BEAKER) (test hlqe=798) 7.3 fL 6.5-10.5 NUCLEATED RED BLOOD CELLS (BEAKER) (test 0 /100 WBC 0-0 ofmp=161) 0.000.640.000.000.900.000.000.000.00CBC W/PLT COUNT & AUTO [id number] 11:38:00 Test Item Value Reference Range Comments WHITE BLOOD CELL COUNT (BEAKER) (test fvyw=196) 11.1 K/ L 4.0-10.0 RED BLOOD CELL COUNT (BEAKER) (test jima=584) 3.36 M/ L 4.20-5.80 HEMOGLOBIN (BEAKER) (test pwpx=711) 9.6 GM/DL 13.0-16.8 HEMATOCRIT (BEAKER) (test ndub=463) 28.9 % 40.0-50.0 MEAN CORPUSCULAR VOLUME (BEAKER) (test dxhj=195) 85.8 fL 82.0-98.0 MEAN CORPUSCULAR HEMOGLOBIN (BEAKER) (test 28.6 pg 27.0-33.0 neog=874) MEAN CORPUSCULAR HEMOGLOBIN CONC (BEAKER) (test 33.3 GM/DL 32.0-36.0 lyvy=243) RED CELL DISTRIBUTION WIDTH (BEAKER) (test 17.1 % 10.3-14.2 hxwf=445) PLATELET COUNT (BEAKER) (test ctkg=576) 286 K/CU MM 150-430 MEAN PLATELET VOLUME (BEAKER) (test mxox=323) 7.5 fL 6.5-10.5 NUCLEATED RED BLOOD CELLS (BEAKER) (test 0 /100 WBC 0-0 wzxm=503) NEUTROPHILS RELATIVE PERCENT (BEAKER) (test 44 % keoz=812) LYMPHOCYTES RELATIVE PERCENT (BEAKER) (test 20 % oqvx=548) MONOCYTES RELATIVE PERCENT (BEAKER) (test 34 % jgei=423) EOSINOPHILS RELATIVE PERCENT (BEAKER) (test 2 % zlmq=345) BASOPHILS RELATIVE PERCENT (BEAKER) (test 0 % hphg=652) NEUTROPHILS ABSOLUTE COUNT (BEAKER) (test 4.85 K/ L 1.80-8.00 nyen=010) LYMPHOCYTES ABSOLUTE COUNT (BEAKER) (test 2.24 K/ L 1.48-4.50 rwdu=335) MONOCYTES ABSOLUTE COUNT (BEAKER) (test 3.75 K/ L 0.00-1.30 nqoe=423) EOSINOPHILS ABSOLUTE COUNT (BEAKER) (test 0.17 K/ L 0.00-0.50 vhfl=762) BASOPHILS ABSOLUTE COUNT (BEAKER) (test 0.05 K/ L 0.00-0.20 lywj=233) 0.000.600.000.000.000.000.000.00(MANUAL DIFFERENTIAL)2017-02-08 11:38:00 Test Item Value Reference Range Comments TOTAL COUNTED (BEAKER) (test fzkd=4438) WBC MORPHOLOGY (BEAKER) (test viln=372) Normal PLT MORPHOLOGY (BEAKER) (test quhb=589) Normal RBC MORPHOLOGY (BEAKER) (test fsgk=881) Normal [id number] 09:47:00 Test Item Value Reference Range Comments FERRITIN (BEAKER) (test xavz=580) 575 ng/mL 5-275 Effective 06/17/2014: Reference Range ChangeNew: Male 5-275 Previous: Male 22-322 Female 5-275 Female [id number] 05:39: 00 Test Item Value Reference Range Comments PHOSPHORUS (BEAKER) (test wtfq=961) 3.9 mg/dL 2.3-4.7 [id number] 05:39:00 Test Item Value Reference Range Comments MAGNESIUM (BEAKER) (test qdgq=483) 2.2 mg/dL 1.6-2.6 BASIC METABOLIC [id number] 05:39:00 Test Item Value Reference Range Comments SODIUM (BEAKER) (test 135 meq/L 136-145 xgpq=273) POTASSIUM (BEAKER) (test 4.7 meq/L 3.5-5.1 hlae=874) CHLORIDE (BEAKER) (test 102 meq/L 98-107 pmla=486) CO2 (BEAKER) (test 27 meq/L 22-29 gstv=961) BLOOD UREA NITROGEN 17 mg/dL 7-21 (BEAKER) (test uxtr=599) CREATININE (BEAKER) (test 1.28 mg/dL 0.57-1.25 ewle=730) GLUCOSE RANDOM (BEAKER) 118 mg/dL 70-105 (test bhuv=760) CALCIUM (BEAKER) (test 9.4 mg/dL 8.4-10.2 jpvj=133) EGFR (BEAKER) (test 55 mL/min/1.73 sq m ESTIMATED GFR IS NOT nhfh=2313) ACCURATE CREATININE CLEARANCE IN PREDICTING GLOMERULAR FILTRATION RATE. ESTIMATED GFR IS NOT APPLICABLE FOR DIALYSIS PATIENTS. HEPATIC FUNCTION [id number] 05:39:00 Test Item Value Reference Range Comments TOTAL PROTEIN (BEAKER) (test tdvo=178) 7.0 gm/dL 6.0-8.3 ALBUMIN (BEAKER) (test hdfm=0584) 2.9 g/dL 3.5-5.0 BILIRUBIN TOTAL (BEAKER) (test vcim=549) 0.5 mg/dL 0.2-1.2 BILIRUBIN DIRECT (BEAKER) (test qyzt=018) 0.3 mg/dL 0.1-0.5 ALKALINE PHOSPHATASE (BEAKER) (test qwmt=124) 73 U/L 40-150 AST (SGOT) (BEAKER) (test grzo=354) 11 U/L 5-34 ALT (SGPT) (BEAKER) (test sljw=320) 7 U/L 6-55 SEDIMENTATION [id number] 12:08:00 Test Item Value Reference Range Comments SEDIMENTATION RATE, ERYTHROCYTE (BEAKER) (test 101 mm/HR 0-40 iuzg=896) CBC W/PLT COUNT & AUTO [id number] 10:43:00 Test Item Value Reference Range Comments WHITE BLOOD CELL COUNT (BEAKER) (test epuj=612) 8.0 K/ L 4.0-10.0 RED BLOOD CELL COUNT (BEAKER) (test etci=786) 3.54 M/ L 4.20-5.80 HEMOGLOBIN (BEAKER) (test irjs=769) 10.1 GM/DL 13.0-16.8 HEMATOCRIT (BEAKER) (test gdpa=308) 30.1 % 40.0-50.0 MEAN CORPUSCULAR VOLUME (BEAKER) (test enps=163) 85.1 fL 82.0-98.0 MEAN CORPUSCULAR HEMOGLOBIN (BEAKER) (test 28.4 pg 27.0-33.0 rgtp=217) MEAN CORPUSCULAR HEMOGLOBIN CONC (BEAKER) (test 33.4 GM/DL 32.0-36.0 hdvg=042) RED CELL DISTRIBUTION WIDTH (BEAKER) (test 17.3 % 10.3-14.2 btye=279) PLATELET COUNT (BEAKER) (test oylf=542) 296 K/CU MM 150-430 MEAN PLATELET VOLUME (BEAKER) (test fvxp=709) 7.4 fL 6.5-10.5 NUCLEATED RED BLOOD CELLS (BEAKER) (test 0 /100 WBC 0-0 apjc=622) NEUTROPHILS RELATIVE PERCENT (BEAKER) (test 47 % zjle=997) LYMPHOCYTES RELATIVE PERCENT (BEAKER) (test 17 % zvxo=882) MONOCYTES RELATIVE PERCENT (BEAKER) (test 34 % boas=499) EOSINOPHILS RELATIVE PERCENT (BEAKER) (test 1 % jzqn=443) BASOPHILS RELATIVE PERCENT (BEAKER) (test 0 % abra=380) NEUTROPHILS ABSOLUTE COUNT (BEAKER) (test 3.77 K/ L 1.80-8.00 bsom=617) LYMPHOCYTES ABSOLUTE COUNT (BEAKER) (test 1.37 K/ L 1.48-4.50 ndil=960) MONOCYTES ABSOLUTE COUNT (BEAKER) (test 2.69 K/ L 0.00-1.30 kner=890) EOSINOPHILS ABSOLUTE COUNT (BEAKER) (test 0.11 K/ L 0.00-0.50 npey=049) BASOPHILS ABSOLUTE COUNT (BEAKER) (test 0.04 K/ L 0.00-0.20 ufzr=859) 0.000.520.000.000.000.000.000.00(MANUAL DIFFERENTIAL)2017-02-07 10:43:00 Test Item Value Reference Range Comments TOTAL COUNTED (BEAKER) (test tnsv=3055) WBC MORPHOLOGY (BEAKER) (test ntsh=707) Normal LARGE PLT(BEAKER) (test kjyt=8484) Present POLYCHROMATOPHILLIC RBCS(BEAKER) (test rphk=604) 1+ few HEMOGLOBIN [id number] 10:11:00 Test Item Value Reference Range Comments HEMOGLOBIN A1C (BEAKER) (test bntl=239) 5.4 % 4.3-6.1 VITAMIN [id number] 06:49:00 Test Item Value Reference Range Comments VITAMIN B12 (BEAKER) (test wghg=456) 266 pg/mL 213-816 TSH/FREE T4 IF [id number] 06:49:00 Test Item Value Reference Range Comments THYROID STIMULATING HORMONE (BEAKER) (test 2.93 uIU/mL 0.35-4.94 pwdz=637) CREATINE KINASE (CK), TOTAL AND [id number] 06:40:00 Test Item Value Reference Range Comments CREATINE KINASE TOTAL (BEAKER) (test xhnl=666) 18 U/L 29-200 CREATINE KINASE-MB (BEAKER) (test tdwy=531) 0.6 ng/mL 0.0-6.6 CREATINE KINASE-MB INDEX (BEAKER) (test ukwb=038) 3.3 % Effective 06/17/2014: CK-MB Reference Range ChangeNew: 0.0-6.6 Previous: 0.0- 4.9CK-MB Reference Range:<6.7 Normal6.7-10.0 Borderline>10.0 AbnormalTROPONIN [id number] 06:37:00 Test Item Value Reference Range Comments TROPONIN I (BEAKER) (test dxux=914) < ng/mL 0.00-0.03 Effective 06/17/2014: Reference Range [...] renalfailure, acidosis, acute neurological disease, and persistent tachyarrhythmia.[id number] 06:30: 00 Test Item Value Reference Range Comments PHOSPHORUS (BEAKER) (test glat=968) 3.5 mg/dL 2.3-4.7 [id number] 06:30:00 Test Item Value Reference Range Comments MAGNESIUM (BEAKER) (test hyja=008) 1.9 mg/dL 1.6-2.6 BASIC METABOLIC [id number] 06:30:00 Test Item Value Reference Range Comments SODIUM (BEAKER) (test 135 meq/L 136-145 nqbu=037) POTASSIUM (BEAKER) (test 3.9 meq/L 3.5-5.1 fjwz=647) CHLORIDE (BEAKER) (test 101 meq/L 98-107 sdpy=849) CO2 (BEAKER) (test 23 meq/L 22-29 oasc=428) BLOOD UREA NITROGEN 14 mg/dL 7-21 (BEAKER) (test yqet=092) CREATININE (BEAKER) (test 1.13 mg/dL 0.57-1.25 gyeu=212) GLUCOSE RANDOM (BEAKER) 94 mg/dL 70-105 (test owsk=693) CALCIUM (BEAKER) (test 9.4 mg/dL 8.4-10.2 zgor=743) EGFR (BEAKER) (test 64 mL/min/1.73 sq m ESTIMATED GFR IS NOT idfc=5337) ACCURATE CREATININE CLEARANCE IN PREDICTING GLOMERULAR FILTRATION RATE. ESTIMATED GFR IS NOT APPLICABLE FOR DIALYSIS PATIENTS. LIPID [id number] 06:30:00 Test Item Value Reference Range Comments TRIGLYCERIDES (BEAKER) (test bohf=231) 78 mg/dL CHOLESTEROL (BEAKER) (test lglp=243) 115 mg/dL HDL CHOLESTEROL (BEAKER) (test yndc=040) 38 mg/dL LDL CHOLESTEROL CALCULATED (BEAKER) (test 61 mg/dL enqx=013) Triglyceride Reference Range: Low Risk <150 Borderline 150- 199 High Risk 200-499 Very High Risk >=500Cholesterol Reference Range: Low Risk <200 Borderline 200-239 High Risk > 240HDL Cholesterol Reference Range: Low Risk >=60 High Risk <40LDL Cholesterol Reference Range: Optimal <100 Near Optimal 100-129 Borderline 130-159 High 160-189 Very High >=190HEPATIC FUNCTION [id number] 06:30:00 Test Item Value Reference Range Comments TOTAL PROTEIN (BEAKER) (test gvje=311) 7.3 gm/dL 6.0-8.3 ALBUMIN (BEAKER) (test nzuq=3462) 3.1 g/dL 3.5-5.0 BILIRUBIN TOTAL (BEAKER) (test mata=202) 0.5 mg/dL 0.2-1.2 BILIRUBIN DIRECT (BEAKER) (test vcvn=217) 0.4 mg/dL 0.1-0.5 ALKALINE PHOSPHATASE (BEAKER) (test lvku=863) 72 U/L 40-150 AST (SGOT) (BEAKER) (test xxsi=236) 10 U/L 5-34 ALT (SGPT) (BEAKER) (test lktn=241) 9 U/L 6-55 C-REACTIVE [id number] 06:30:00 Test Item Value Reference Range Comments C-REACTIVE PROTEIN (BEAKER) (test nlfk=519) 13.33 mg/dL 0.00-0.50 (MANUAL DIFFERENTIAL)2017-02-07 01:54:00 Test Item Value Reference Range Comments NEUTROPHILS - REL (DIFF) (BEAKER) (test fhyf=3384) 57 % LYMPHOCYTES - REL (DIFF) (BEAKER) (test nadh=6144) 11 % MONOCYTES - REL (DIFF) (BEAKER) (test fxvs=1894) 24 % EOSINOPHILS - REL (DIFF) (BEAKER) (test zizl=1387) 1 % BASOPHILS - REL (DIFF) (BEAKER) (test yqnc=3794) 1 % BANDS - REL (DIFF) (BEAKER) (test kuvy=6567) 6 % 0-10 NEUTROPHILS - ABS (DIFF) (BEAKER) (test mmdi=4098) 5.70 K/ L 1.80-8.00 LYMPHOCYTES - ABS (DIFF) (BEAKER) (test sooe=7942) 1.10 K/ L 1.48-4.50 MONOCYTES - ABS (DIFF) (BEAKER) (test sthw=0906) 2.40 K/ L 0.00-1.30 EOSINOPHILS - ABS (DIFF) (BEAKER) (test wgfz=0781) 0.10 K/ L 0.00-0.50 BASOPHILS - ABS (DIFF) (BEAKER) (test kjfe=1306) 0.10 K/ L 0.00-0.20 BANDS-ABS (DIFF) (BEAKER) (test byiv=4676) 0.6 K/ L 0.0-0.8 TOTAL COUNTED (BEAKER) (test kkol=0714) 100 BANDS + SEGMENTED NEUTROPHILS (BEAKER) (test 6.30 swez=0020) WBC MORPHOLOGY (BEAKER) (test pyju=769) Normal LARGE PLT(BEAKER) (test npan=5157) Present ANISOCYTOSIS (BEAKER) (test qpew=779) 1+ few POLYCHROMATOPHILLIC RBCS(BEAKER) (test bubj=539) 1+ few CBC W/PLT COUNT & AUTO [id number] 23:52:00 Test Item Value Reference Range Comments WHITE BLOOD CELL COUNT (BEAKER) (test dzdq=981) 10.0 K/ L 4.0-10.0 RED BLOOD CELL COUNT (BEAKER) (test fyao=766) 3.34 M/ L 4.20-5.80 HEMOGLOBIN (BEAKER) (test zotk=427) 9.4 GM/DL 13.0-16.8 HEMATOCRIT (BEAKER) (test cder=022) 28.4 % 40.0-50.0 MEAN CORPUSCULAR VOLUME (BEAKER) (test aznp=372) 85.2 fL 82.0-98.0 MEAN CORPUSCULAR HEMOGLOBIN (BEAKER) (test 28.0 pg 27.0-33.0 terj=991) MEAN CORPUSCULAR HEMOGLOBIN CONC (BEAKER) (test 32.9 GM/DL 32.0-36.0 imoy=936) RED CELL DISTRIBUTION WIDTH (BEAKER) (test 16.1 % 10.3-14.2 vsfo=306) PLATELET COUNT (BEAKER) (test savv=946) 312 K/CU MM 150-430 MEAN PLATELET VOLUME (BEAKER) (test bpdm=672) 7.3 fL 6.5-10.5 NUCLEATED RED BLOOD CELLS (BEAKER) (test 0 /100 WBC 0-0 yjup=524) 0.000.560.000.000.000.000.000.00URINALYSIS W/ [id number] 23:36:00 Test Item Value Reference Range Comments COLOR (BEAKER) (test vrfz=361) Red CLARITY (BEAKER) (test zmcs=022) Turbid SPECIFIC GRAVITY UA (BEAKER) (test qfnu=793) 1.015 1.001-1.035 PH UA (BEAKER) (test deaw=306) 5.5 5.0-8.0 PROTEIN UA (BEAKER) (test fqog=381) >=300 mg/dL Negative GLUCOSE UA (BEAKER) (test doev=864) 100 mg/dL Negative KETONES UA (BEAKER) (test zopb=232) 15 mg/dL Negative BILIRUBIN UA (BEAKER) (test pwrq=772) Positive Negative BLOOD UA (BEAKER) (test wrjf=036) Large Negative NITRITE UA (BEAKER) (test mbpi=861) Negative Negative LEUKOCYTE ESTERASE UA (BEAKER) (test hpxm=820) Large Negative UROBILINOGEN UA (BEAKER) (test awya=132) >=mg/dL 0.2-1.0 BACTERIA (BEAKER) (test trhh=595) Moderate MUCUS (BEAKER) (test xyww=0987) Moderate AMORPHOUS CRYSTALS (BEAKER) (test mpoz=1843) Many RBC UA-MANUAL (BEAKER) (test bxyl=3883) >100 /HPF WBC UA-MANUAL (BEAKER) (test rhph=6278) 20-50 /HPF SQUAMOUS EPITHELIAL MANUAL (BEAKER) (test <5 /HPF hfjq=7283) SOURCE(BEAKER) (test xodt=8956) [id number] 23:11:00 Test Item Value Reference Range Comments PROTIME (BEAKER) (test ynze=172) 12.3 seconds 9.8-12.0 INR (BEAKER) (test erry=646) 1.2 <=5.9 PARTIAL THROMBOPLASTIN TIME (BEAKER) (test 27.6 seconds 25.8-34.5 epou=200) RECOMMENDED COUMADIN/WARFARIN INR THERAPY RANGESSTANDARD DOSE: 2.0 - 3.0 Includes: PROPHYLAXIS forvenous thrombosis, systemic embolization; TREATMENT for venous thrombosis and/or pulmonary embolus.HIGH RISK: Target INR is 2.5-3.5 for patients with mechanical heart valves.BASIC METABOLIC [id number] 23:08: 00 Test Item Value Reference Range Comments SODIUM (BEAKER) (test 134 meq/L 135-148 ohpq=011) POTASSIUM (BEAKER) (test 4.1 meq/L 3.6-5.5 pxxd=517) CHLORIDE (BEAKER) (test 96 meq/L 98-106 fyhn=788) CO2 (BEAKER) (test 26 meq/L 24-32 ldfu=614) BLOOD UREA NITROGEN 14 mg/dL 10-26 (BEAKER) (test pyfb=201) CREATININE (BEAKER) (test 1.26 mg/dL 0.50-1.20 wnuq=396) GLUCOSE RANDOM (BEAKER) 108 mg/dL 70-110 (test jzkl=132) CALCIUM (BEAKER) (test 9.4 mg/dL 8.5-10.5 vohv=628) EGFR (BEAKER) (test 56 mL/min/1.73 sq m ESTIMATED GFR IS NOT ufgg=2310) ACCURATE CREATININE CLEARANCE IN PREDICTING GLOMERULAR FILTRATION RATE. ESTIMATED GFR IS NOT APPLICABLE FOR DIALYSIS PATIENTS.
[2018-02-02] MEDS ORDERED: NA CHLORIDE 0.9% 1,000 ML ONE ×2 (10:58→13:04)
[2018-02-02] MEDS ORDERED: ALBUTEROL 2.5 MG/3 ML NEB SOL ONE (10:58)
[2018-02-02] MEDS ORDERED: IPRATROPIUM BROM 0.5MG/2.5ML ONE (10:58)
[2018-02-02] MEDS ORDERED: METHYLPREDNISOLONE 125 MG INJ ONE (10:58)
[2018-02-02 11:37] LABS: Absolute Lymphocytes (CBC) 2.4 K/uL (0.7-4.9); Absolute Monocytes 10.8 K/uL (0.1-1.3); Absolute Neutrophil 13.7 K/uL (1.8-8.0); Basophils % 0.8 % (0-1.3); Eosinophils % 0.6 % (0-4.4); Lymphocytes % 8.9 % (15.3-44.8); MCH 29.2 pg (27.0-35.0); MCV 88.6 fL (80-100); MPV 9.3 fL (7.6-11.3); Monocytes % 39.7 % (3.3-12.3); RBC Red Blood Cell Count 3.61 M/uL (4.33-5.43)
[2018-02-02 11:43] LABS: Protime INR 3.71
--- NOTE | 2018-02-02 11:51 | RAD REPORT ---
EXAM DESCRIPTION: CT - Thorax W/ Con - 02/02/2018 11:14 am CLINICAL HISTORY: Dyspnea COMPARISON: CT abdomen January 18 TECHNIQUE: Dynamically enhanced 5 mm thick images of the chest were obtained during administration o f 100 mL non-ionic IV contrast. All CT scans are performed using dose optimization technique as appropriate and may include automated exposure control or mA/KV adjustment according to patient size. FINDINGS: No focal infiltrate and no suspicious mass or nodularity of the lung parenchyma. The patie nt has a moderately large left pleural effusion. Left lower lobe is almost fully atelectatic. There i s atelectasis in the left upper lobe along the fissure. A small amount of fluid is entrapped within t he superior margin of the fissure. No pleural based mass. No endobronchial lesion or abnormal lymphad enopathy pattern. No pneumothorax. No chest wall mass or abnormal axillary lymphadenopathy. No abnormal mediastinal or hilar mass or lymphadenopathy seen. No pericardial thickening or effusion. Limited upper abdomen imaging again notes the invasive mass into the spleen. IMPRESSION: Moderately large left pleural effusion with near complete left lower lobe atelectasis. No suspicious pulmonary nodularity, mass or lymphadenopathy. 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 Diaphragm assessm ent is limited on CT imaging. It is possible for the left pleural fluid collection to be secondary re sponse to diaphragm involvement by the left upper quadrant renal recurrent malignant mass.
--- NOTE | 2018-02-02 11:53 | RAD REPORT ---
EXAM DESCRIPTION: RAD - Chest Single View - 02/02/2018 11:31 am CLINICAL HISTORY: Dyspnea COMPARISON: CT chest same date, portable chest January 17 TECHNIQUE: AP portable chest image was obtained 1120 hours . FINDINGS: No nodularity, mass or suspicious finding in the right lung parenchyma or left upper lobe. Large left pleural effusion is present partially obscuring the heart and the diaphragm. Mass assessm ent in the left lower lobe is limited due to the pleural fluid and atelectasis. Trachea is midline. N o suspicion for mediastinal lymphadenopathy. Heart and vasculature are normal. No pneumothorax. No gr oss bony abnormality seen. No acute aortic findings suspected. IMPRESSION: Moderately large left pleural effusion with left base atelectasis. In the aerated portions of the lung oliver no suspicious mass or nodularity.
[2018-02-02 11:59] LABS: Albumin 2.5 g/dL (3.4-5.0); Bilirubin Direct 0.4 mg/dL (0-0.2); Bilirubin Total 0.7 mg/dL (0.2-1.0); Potassium 4.5 mmol/L (3.5-5.1); Protein, Total 7.7 g/dL (6.4-8.2)
[2018-02-02 12:07] LABS: Blood Morphology Comment NOT SEEN (NOT SEEN); Platelet Estimate ADEQ; Platelets, Giant PRESENT
--- NOTE | 2018-02-02 12:14 | EDPHYS ---
Physician Documentation [facility] Name: Shan Aguirre Age: 72 yrs Sex: Male : 1945 Arrival Date: 02/02/2018 Time: 10:37 Bed 7 Private MD: ED Physician Mike Valenzuela HPI: 02/02 11:16 This 72 yrs old Male presents to ER via EMS with complaints of jr8 Nausea/Vomiting/Diarrhea. 11:16 The patient presents to the emergency department with nausea, vomiting. Onset: The jr8 symptoms/episode began/occurred acutely, today. Possible causes: unknown. The symptoms are aggravated by nothing. The symptoms are alleviated by nothing. Associated signs and symptoms: Pertinent positives: cough, shortness of breath, weakness . Severity of symptoms: At their worst the symptoms were moderate in the emergency department the symptoms are unchanged. The patient has not experienced similar symptoms in the past. The patient has been recently seen by a physician:. Patient with history of stage 4 renal cancer. Had nephrectomy. Recently was admitted for weakness and UTI. Found splenic mass that they though may be in lymph nodes. Daughter stated that over the past two weeks has had drastic decline in strength. Now not eating well, has n/v that started today. Noticed breathing difficulty over past two days . Historical: - Allergies: 10:42 No Known Allergies; jl7 - PMHx: 10:42 CVA; Cancer, Renal; jl7 - PSHx: 10:42 Left Kidney removal; jl7 - Immunization history:: Adult Immunizations unknown. - Social history:: Smoking status: Patient/guardian denies using tobacco. - Ebola Screening: : No symptoms or risks identified at this time. ROS: 11:16 Eyes: Negative for injury, pain, redness, and discharge, ENT: Negative for injury, jr8 pain, and discharge, Neck: Negative for injury, pain, and swelling, Cardiovascular: Negative for chest pain, palpitations, and edema, Back: Negative for injury and pain, MS/Extremity: Negative for injury and deformity, Skin: Negative for injury, rash, and discoloration. 11:16 Constitutional: Positive for fatigue, malaise. 11:16 Respiratory: Positive for cough, shortness of breath, wheezing. 11:16 Abdomen/GI: Positive for nausea, vomiting, and diarrhea, Negative for abdominal pain, constipation, abdominal cramps, abdominal distension, anorexia, dysphagia, hematemesis, black/tarry stool, rectal pain, rectal bleeding, bowel incontinence, flatulence. 11:16 Neuro: Positive for weakness, Negative for altered mental status. Exam: 11:16 Eyes: Pupils equal round and reactive to light, extra-ocular motions intact. Lids and jr8 lashes normal. Conjunctiva and sclera are non-icteric and not injected. Cornea within normal limits. Periorbital areas with no swelling, redness, or edema. ENT: Nares patent. No nasal discharge, no septal abnormalities noted. Tympanic membranes are normal and external auditory canals are clear. Oropharynx with no redness, swelling, or masses, exudates, or evidence of obstruction, uvula midline. Mucous membranes moist. Neck: Trachea midline, no thyromegaly or masses palpated, and no cervical lymphadenopathy. Supple, full range of motion without nuchal rigidity, or vertebral point tenderness. No Meningismus. Cardiovascular: Regular rate and rhythm with a normal S1 and S2. No gallops, murmurs, or rubs. Normal PMI, no JVD. No pulse deficits. Abdomen/GI: Soft, non-tender, with normal bowel sounds. No distension or tympany. No guarding or rebound. No evidence of tenderness throughout. Back: No spinal tenderness. No costovertebral tenderness. Full range of motion. Skin: Warm, dry with normal turgor. Normal color with no rashes, no lesions, and no evidence of cellulitis. MS/ Extremity: Pulses equal, no cyanosis. Neurovascular intact. Full, normal range of motion. Neuro: Awake and alert, GCS 15, oriented to person, place, time, and situation. Cranial nerves II-XII grossly intact. Motor strength 5/5 in all extremities. Sensory grossly intact. Cerebellar exam normal. Normal gait. 11:16 Respiratory: mild respiratory distress is noted, Respirations: tachypnea, Breath sounds: rhonchi, that are moderate, are heard diffusely, wheezing: expiratory that is mild, is heard diffusely. Vital Signs: 10:37 BP 115 / 60; Pulse 73; Resp 28 S; Temp 98.4(O); Pulse Ox 93% on R/A; Weight 77.11 kg jl7 (R); Height 5 ft. 9 in. (175.26 cm) (R); Pain 0/10; 10:38 Pulse Ox 96% on 2 lpm NC; jl7 12:00 BP 115 / 56; Pulse 70; Resp 26; Pulse Ox 95% on 2 lpm NC; jl7 13:00 BP 121 / 55; Pulse 70; Resp 24; Pulse Ox 96% on 2 lpm NC; jl7 14:00 BP 108 / 51; Pulse 72; Resp 24 S; Pulse Ox 95% on 2 lpm NC; jl7 14:05 BP 113 / 54; Pulse 69; Resp 24; Pulse Ox 93% on 2 lpm NC; jl7 10:37 Body Mass Index 25.10 (77.11 kg, 175.26 cm) jl7 MDM: 10:41 Patient medically screened. jr8 12:12 Data reviewed: vital signs, nurses notes, lab test result(s), radiologic studies, CT jr8 scan, plain films, and as a result, I will admit patient. Data interpreted: Pulse oximetry: on room air is 96 %. Interpretation: normal. Counseling: I had a detailed discussion with the patient and/or guardian regarding: the historical points, exam findings, and any diagnostic results supporting the discharge/admit diagnosis, lab results, radiology results, the need for further work-up and treatment in the hospital. 12:51 Physician consultation: Dameon Bobo MD was called at 12:51, was contacted at 12:51, jr8 regarding admission, to the telemetry unit. consult, patient's condition, and will see patient would like consultation with Dr. De Jesus. 02/02 10:52 Order name: Basic Metabolic Panel; Complete Time: 12:09 02/02 10:52 Order name: Blood Culture Adult (2) 02/02 10:52 Order name: CBC with Diff; Complete Time: 12:02/02 10:52 Order name: Lactate; Complete Time: 11:56 02/02 10:52 Order name: LFT's; Complete Time: 12:09 02/02 10:52 Order name: Procalcitonin; Complete Time: 12:09 02/02 10:52 Order name: Protime (+inr); Complete Time: 11:55 02/02 10:52 Order name: Chest Single View XRAY; Complete Time: 11:55 02/02 10:52 Order name: BNP; Complete Time: 12:09 8 02/02 10:54 Order name: CT Chest W/ Con; Complete Time: 11:55 02/02 11:39 Order name: Manual Differential; Complete Time: 12:09 EDMS 02/02 12:14 Order name: Urine Microscopic Only; Complete Time: 13:14 02/02 12:57 Order name: Urine Dipstick--Ancillary (enter results) ag 02/02 12:59 Order name: Urine Dipstick-Ancillary; Complete Time: 13:07 EDMS 02/02 10:52 Order name: Accucheck; Complete Time: 11:49 02/02 10:52 Order name: Cardiac monitoring; Complete Time: 11:02 02/02 10:52 Order name: EKG - Nurse/Tech; Complete Time: 11:02 02/02 10:52 Order name: IV Saline Lock - Large Bore; Complete Time: 11:48 02/02 10:52 Order name: Labs collected and sent; Complete Time: 11:48 02/02 10:52 Order name: O2 Per Protocol; Complete Time: 11:02 02/02 10:52 Order name: O2 Sat Monitoring; Complete Time: 11:02 02/02 10:52 Order name: Urine Dipstick-Ancillary (obtain specimen); Complete Time: 13:37 02/02 12:14 Order name: Straight Cath - Urine; Complete Time: 12:43 Administered Medications: 10:55 Drug: Albuterol - atroVENT (3:1) (2.5 mg - 0.5 mg) 3 ml Route: Nebulizer; jl7 11:49 Follow up: Response: No adverse reaction; No change in condition 11:27 Drug: NS 0.9% 1000 ml Route: IV; Rate: 1000 ml; Site: left antecubital; jl7 12:55 Follow up: IV Status: Completed infusion 11:27 Drug: SOLU-Medrol 125 mg Route: IVP; Site: left antecubital; jl7 11:49 Follow up: Response: No adverse reaction 7 13:00 Drug: Zosyn 3.375 grams Route: IVPB; Infused Over: 60 mins; Site: left antecubital; jl7 14:00 Follow up: Response: No adverse reaction; IV Status: Completed infusion jl7 13:00 Drug: NS 0.9% 1000 ml Route: IV; Rate: 1000 ml; Site: left antecubital; 7 13:00 Drug: Mucomyst - Acetylcysteine 600 mg Route: PO; 7 13:59 Follow up: Response: No adverse reaction jl7 Disposition: 15:30 Co-signature as Attending Physician, Mike Valenzuela MD. rn Disposition: 02/02/18 12:13 Hospitalization ordered by Dameon Bobo for Inpatient Admission. Preliminary diagnosis are Bacteremia, Sepsis, Pleural effusion in conditions classified elsewhere. - Bed requested for Telemetry/MedSurg (Inpatient). - Status is Inpatient Admission. jl7 - Condition is Fair. - Problem is new. - Symptoms are unchanged. UTI on Admission? Yes Signatures: Dispatcher [employer] EDToya May RN RN dw Nieto, Roman, MD MD rn Roszak, Josh, PA PA jr8 Mukul Trevino RN RN jl7 Corrections: (The following items were deleted from the chart) 13:15 12:13 Hospitalization Ordered by Dameon Bobo MD for Inpatient Admission. Preliminary jr8 diagnosis is Bacteremia; Sepsis; Pleural effusion in conditions classified elsewhere. Bed requested for Telemetry/MedSurg (Inpatient). Status is Inpatient Admission. Condition is Fair. Problem is new. Symptoms are unchanged. UTI on Admission? No. jr8 13:47 13:15 02/02/2018 12:13 Hospitalization Ordered by Dameon Bobo MD for Inpatient Admission. Preliminary diagnosis is Bacteremia; Sepsis; Pleural effusion in conditions classified elsewhere. Bed requested for Telemetry/MedSurg (Inpatient). Status is Inpatient Admission. Condition is Fair. Problem is new. Symptoms are unchanged. UTI on Admission? Yes. jr8 15:10 13:47 02/02/2018 12:13 Hospitalization Ordered by Dameon Bobo MD for Inpatient jl7 Admission. Preliminary diagnosis is Bacteremia; Sepsis; Pleural effusion in conditions classified elsewhere. Bed requested for Telemetry/MedSurg (Inpatient). Status is Inpatient Admission. Condition is Fair. Problem is new. Symptoms are unchanged. UTI on Admission? Yes.
--- NOTE | 2018-02-02 12:14 | ER ---
Nurse's Notes [facility] Name: Shan Aguirre Age: 72 yrs Sex: Male : 1945 Arrival Date: 02/02/2018 Time: 10:37 Bed 7 Private MD: Diagnosis: Bacteremia;Sepsis;Pleural effusion in conditions classified elsewhere Presentation: 02/02 10:37 Presenting complaint: EMS states: "He hasn't been feeling good for a couple days, jl7 Reports N/V/D." Reports stage 4 renal cancer, left kidney removed. Pt reports "I'm supposed to have a cat scan here today of my abdomen because they said it's coming back and moved to my lymph nodes.". Transition of care: patient was not received from another setting of care. Onset of symptoms was January 30, 2018. Risk Assessment: Do you want to hurt yourself or someone else? Patient reports no desire to harm self or others. Initial Sepsis Screen: Does the patient meet any 2 criteria? No. Patient's initial sepsis screen is negative. Does the patient have a suspected source of infection? No. Patient's initial sepsis screen is negative. Care prior to arrival: IV initiated. 18 GA, in the left hand, Glucose check: 143 Med neb given. Oxygen administered. via a nebulizer mask. 10:37 Acuity: SHRADDHA 3 jl7 10:37 Method Of Arrival: EMS: [facility] 7 Triage Assessment: 10:37 General: Appears in no apparent distress. uncomfortable, Behavior is calm, cooperative, jl7 appropriate for age. Pain: Denies pain. Neuro: Level of Consciousness is awake, alert, obeys commands. Cardiovascular: Heart tones S1 S2 present. Respiratory: Airway is patent Respiratory effort is even, labored, Respiratory pattern is symmetrical, tachypnea Breath sounds are coarse bilaterally. GI: Reports diarrhea, nausea, vomiting. : Reports Stage 4 renal cancer. Derm: Skin is dry, Skin is pale, Skin temperature is warm. Musculoskeletal: No signs and/or symptoms reported regarding the musculoskeletal system. Historical: - Allergies: 10:42 No Known Allergies; jl7 - PMHx: 10:42 CVA; Cancer, Renal; jl7 - PSHx: 10:42 Left Kidney removal; jl7 - Immunization history:: Adult Immunizations unknown. - Social history:: Smoking status: Patient/guardian denies using tobacco. - Ebola Screening: : No symptoms or risks identified at this time. Screenin:37 Abuse screen: Denies threats or abuse. Denies injuries from another. Nutritional jl7 screening: No deficits noted. Tuberculosis screening: No symptoms or risk factors identified. Fall Risk IV access (20 points). Total [place] Fall Scale indicates No Risk (0-24 pts). Assessment: 10:37 General: See triage assessment. GI: Bowel sounds present X 4 quads. Abd is soft and non jl7 tender X 4 quads. Reports diarrhea, nausea, vomiting. 12:00 Reassessment: No changes from previously documented assessment. Patient and/or family jl7 updated on plan of care and expected duration. Pain level reassessed. Patient is alert, oriented x 3, equal unlabored respirations, skin warm/dry/pink. 13:00 Reassessment: Patient and/or family updated on plan of care and expected duration. Pain jl7 level reassessed. Patient is alert, oriented x 3, equal unlabored respirations, skin warm/dry/pink. 14:00 Reassessment: Patient and/or family updated on plan of care and expected duration. Pain jl7 level reassessed. Patient is alert, oriented x 3, equal unlabored respirations, skin warm/dry/pink. Vital Signs: 10:37 BP 115 / 60; Pulse 73; Resp 28 S; Temp 98.4(O); Pulse Ox 93% on R/A; Weight 77.11 kg jl7 (R); Height 5 ft. 9 in. (175.26 cm) (R); Pain 0/10; 10:38 Pulse Ox 96% on 2 lpm NC; jl7 12:00 BP 115 / 56; Pulse 70; Resp 26; Pulse Ox 95% on 2 lpm NC; jl7 13:00 BP 121 / 55; Pulse 70; Resp 24; Pulse Ox 96% on 2 lpm NC; jl7 14:00 BP 108 / 51; Pulse 72; Resp 24 S; Pulse Ox 95% on 2 lpm NC; jl7 14:05 BP 113 / 54; Pulse 69; Resp 24; Pulse Ox 93% on 2 lpm NC; jl7 10:37 Body Mass Index 25.10 (77.11 kg, 175.26 cm) 7 ED Course: 10:37 Patient arrived in ED. jl7 10:37 Arm band placed on right wrist. jl7 10:37 Patient has correct armband on for positive identification. Bed in low position. Call jl7 light in reach. Side rails up X 1. veterinary livestock inspector on. Pulse ox on. NIBP on. Warm blanket given. 10:40 Triage completed. jl7 10:41 Parvez Bernal PA is PHCP. jr8 10:41 Mike Valenzuela MD is Attending Physician. jr8 10:56 Mukul Trevino RN is Primary Nurse. jl7 11:00 Inserted saline lock: 20 gauge in left antecubital area, using aseptic technique. Blood jl7 collected. 11:00 Initial lab(s) drawn, by me, sent to lab. First set of blood cultures drawn by me. jl7 11:[address] via stretcher. vr 11:10 EKG done, by burner technician. reviewed by Parvez STRATTON. sm3 11:11 Radiology exam delayed due to ATTEMPTED CXR, PT TAKEN TO CT. jb2 11:13 CT completed. Patient tolerated procedure well. Patient moved back from CT. vr 11:13 CT Chest W/ Con In Process Unspecified. EDMS 11:15 Second set of blood cultures drawn by me. jl7 11:29 X-ray completed. Portable x-ray completed in exam room. Patient tolerated procedure jb2 well. 11:30 Chest Single View XRAY In Process Unspecified. EDMS 12:13 Dameon Bobo MD is Hospitalizing Provider. jr8 12:30 Straight cath inserted, using sterile technique, 16 Fr. Specimen obtained. Returned jl7 cloudy urine. Patient tolerated well. 14:10 No provider procedures requiring assistance completed. Patient admitted, IV remains in jl7 place. intact, No redness/swelling at site. Administered Medications: 10:55 Drug: Albuterol - atroVENT (3:1) (2.5 mg - 0.5 mg) 3 ml Route: Nebulizer; jl7 11:49 Follow up: Response: No adverse reaction; No change in condition jl7 11:27 Drug: NS 0.9% 1000 ml Route: IV; Rate: 1000 ml; Site: left antecubital; jl7 12:55 Follow up: IV Status: Completed infusion jl7 11: Drug: SOLU-Medrol 125 mg Route: IVP; Site: left antecubital; jl7 11:49 Follow up: Response: No adverse reaction 7 13:00 Drug: Zosyn 3.375 grams Route: IVPB; Infused Over: 60 mins; Site: left antecubital; jl7 14:00 Follow up: Response: No adverse reaction; IV Status: Completed infusion 7 13:00 Drug: NS 0.9% 1000 ml Route: IV; Rate: 1000 ml; Site: left antecubital; jl7 13:00 Drug: Mucomyst - Acetylcysteine 600 mg Route: PO; jl7 13:59 Follow up: Response: No adverse reaction jl7 Outcome: 12:13 Decision to Hospitalize by Provider. jr8 14:10 Admitted to Med/surg accompanied by tech, family with patient, via stretcher, room 228, jl7 with chart, Report called to FELA Weber 14:10 Condition: stable 14:10 Discharge instructions given to patient, family, Instructed on the need for admit, Demonstrated understanding of instructions. 15:10 Patient left the ED. jl7 Signatures: Dispatcher [employer] EDMS Ron Stanley Victoria vr Roszak, Josh, PA PA jr8 Mukul Trevino RN RN jl7 Claudia White 3 Corrections: (The following items were deleted from the chart) 10:42 10:37 Method Of Arrival: EMS: [facility] jlMarla jl7
[2018-02-02 12:58] LABS: Urine Blood 2+ (NEG); Urine Glucose NEGATIVE (NEG); Urine Protein 2+ (NEG); Urine Specific Gravity >1.030 (1.005-1.030); Urine pH 5.5 (5.0-7.0)
[2018-02-02] MEDS ORDERED: ACETYLCYST 6,000 MG/30 ML VIAL ONE (13:02)
[2018-02-02] MEDS ORDERED: PIPER/TAZO/NS 3.375gm 3.375 GM/100 ML BAG ONE (13:04)
[2018-02-02 13:11] LABS: Urine Amorphous Sediment 1+ /HPF (NONE SEEN); Urine Bacteria 20-50 /HPF (NONE SEEN); Urine Culture Reflex Order REFLEXED; Urine Mucus 1+ /HPF (NONE SEEN)
[2018-02-02] MEDS ORDERED: ACETAMINOPHEN 500 MG TAB PO PRN (14:42)
[2018-02-02] MEDS ORDERED: ONDANSETRON 4 MG/2 ML VIAL IV PRN (14:42)
[2018-02-02] MEDS ORDERED: MORPHINE 4 MG/ML SYR IV PRN (14:42)
[2018-02-02] MEDS ORDERED: IPRATROPIUM BROM 0.5MG/2.5ML NEB PRN (14:42)
[2018-02-02] MEDS ORDERED: ALBUTEROL 2.5 MG/3 ML NEB SOL NEB PRN (14:42)
[2018-02-02 14:44] VITALS: BMI 25.1
[2018-02-02] MEDS: NA CHLORIDE 0.9% 1,000 ML IV SCH (15:19)
[2018-02-02] MEDS: SOTALOL HCL 80 MG TAB PO SCH (17:52)
[2018-02-02] MEDS: PIPER/TAZO/NS 3.375gm 3.375 GM/100 ML BAG IVPB SCH (20:45)
[2018-02-02] MEDS: PANTOPRAZOLE 40MG TABLET PO SCH (20:47)
[2018-02-02] MEDS ORDERED: METOPROLOL XL 25 MG TAB PO SCH (21:00)
[2018-02-03] MEDS: PIPER/TAZO/NS 3.375gm 3.375 GM/100 ML BAG IVPB SCH ×3 (04:32→20:19)
[2018-02-03] MEDS: NA CHLORIDE 0.9% 1,000 ML IV SCH ×2 (04:32→17:59)
[2018-02-03 04:51] LABS: Absolute Lymphocytes (CBC) 1.1 K/uL (0.7-4.9); Absolute Monocytes 2.6 K/uL (0.1-1.3); Absolute Neutrophil 13.3 K/uL (1.8-8.0); Basophils % 0.3 % (0-1.3); Hematocrit 26.6 % (39.6-49.0); Lymphocytes % 6.2 % (15.3-44.8); MCH 29.8 pg (27.0-35.0); MCV 89.6 fL (80-100); MPV 9.8 fL (7.6-11.3); Monocytes % 15.4 % (3.3-12.3); RBC Red Blood Cell Count 2.97 M/uL (4.33-5.43)
[2018-02-03 05:03] LABS: Potassium 4.3 mmol/L (3.5-5.1)
[2018-02-03] MEDS: SOTALOL HCL 80 MG TAB PO SCH ×2 (05:39→17:59)
--- NOTE | 2018-02-03 07:13 | EKG ---
Test Date: 2018-02-02 Test Time: 11:02:32 Property Caretaker: MANJEET MEASUREMENT RESULTS: Intervals: Rate: 69 NH: 164 QRSD: 82 QT: 424 QTc: 454 [place]: P: -25 NH: 164 QRS: 6 T: -63 INTERPRETIVE STATEMENTS: Normal sinus rhythm T wave abnormality, consider anterolateral ischemia Abnormal ECG Compared to ECG 01/18/2018 09:20:52 Possible ischemia now present Atrial fibrillation no longer present T-wave abnormality still present Electronically Signed On 02-03-18 07:12:10 CDT by Ayaan He
[2018-02-03] MEDS: PANTOPRAZOLE 40MG TABLET PO SCH ×2 (08:56→20:19)
--- NOTE | 2018-02-03 10:13 | P.CNS ---
Date of Consult: 02/03/18 Reason for Consult: Pleural effusion Chief Complaint: Nausea vomiting fall History of Present Illness: Patient is 72 years of age has advanced off the kidneys with Mets to the spleen and local lymph nodes was admitted with nausea vomiting apparently he fell he has wagner rapidly declining not ambulating and is seen by oncology see was recently admitted with a urinary tract infection patient is fully anti coagulated and this time was found to have moderate left lower lobe effusion he is currently doing well patient denies any chest pain shortness of breath fever or chills although his white count was elevated Allergies No Known Allergies Allergy (Verified 01/19/17 04:46) Home Medications: Amlodipine Besylate 5 mg PO DAILY 04/12/15 Apixaban [Eliquis] 5 mg PO BID #60 tablet 01/19/18 Pantoprazole [Protonix Tab*] 40 mg PO BID #60 tab 01/19/18 Sotalol HCl [Betapace*] 80 mg PO BID 6AM 6PM #60 tab 01/19/18 Metoprolol Succinate [Toprol Xl] 25 mg PO BID 02/02/18 - Past Medical/Surgical History Diabetic: No -: CVA -: HTN -: Kidney dx -: Cysts(recurrent) -: Kidney Cancer -: removal of cysts(head) -: Left Nephrectomy - Family History Mother Medical History: Diabetes Notes: Alzheimer's Father Medical History: Stroke Notes: Alzheimer's - Social History Smoking Status: Never smoker Alcohol use: No CD- Drugs: No Caffeine use: Yes Place of Residence: Home Review of Systems General: Weakness Respiratory: Shortness of Breath Gastrointestinal: Nausea Neurological: Weakness Physical Examination Temp Pulse Resp BP Pulse Ox 98.1 F 58 18 102/51 L 96 02/03/18 07:55 02/03/18 07:55 02/03/18 07:55 02/03/18 07:55 02/03/18 07:55 General: Alert, Oriented x3 Neck: Supple Respiratory: Diminished (Diminished air entry on the right side) Cardiovascular: No edema, Regular rate/rhythm, Normal S1 S2 Gastrointestinal: Normal bowel sounds, Soft and benign Musculoskeletal: No clubbing, No swelling Laboratory Data (last 24 hrs) 02/02/18 11:00: PT 44.4 H, INR 3.71 02/02/18 11:00: WBC 27.3 H*, Hgb 10.6 L, Hct 32.0 L, Plt Count 295 02/02/18 11:00: Sodium 132 L, Potassium 4.5, BUN 21 H, Creatinine 1.60 H, Glucose 98, Total Bilirubin 0.7, AST 20, ALT 13, Alkaline Phosphatase 103 - Problems (1) Pleural effusion Current Visit: Yes Status: Acute Plan: Patient is 72 years of age admitted with a fall nausea vomiting he has now pleural effusion on the left side in addition to mass in the spleen for pre from recurrent renal cancer he has also had a left-sided nephrectomy patient's white count is elevated patient is anemic white count is declining a renal function is also improving no evidence of urinary tract infection oxygenation stable vital signs stable patient is already anti coagulated is on Eliquis overall prognosis is very poor on possibility is a pleural infection the L thoracentesis once his INR is normal continue with broad-spectrum antibiotics consult Oncology agree withholding Eliquis
--- NOTE | 2018-02-03 12:25 | HP ---
Date of Admission: 02/02/2018 Chief Complaint: Feeling weak and tired. History Of Present Illness: A 72-year-old male, who is known to have stage 4 renal cancer, who is be ing seen at the Oncology Clinic. He was due to have CT scans done, however, he felt weak and bad and was brought to the emergency room. Evaluation showed a large pleural effusion and elevated white co unt. The patient did not have any fever, no chills or rigors. No history of urinary symptoms. The patient's urine did have some findings, however, leukocyte esterase is negative. Past Medical History: Positive for history of CVA, renal cell cancer for which he had surgery, and r ecent atrial fibrillation. Family History: Noncontributory. Personal History: The patient has no known allergies. Home Medications: Please refer to the chart. Review of Systems: No history of fever, chills, rigors. Physical Examination: General: Reveals 72-year-old thin built male, afebrile. Vital Signs: Blood pressure 102/70. HEENT: Otherwise negative. Neck: Supple. JVD negative. Chest: Bilateral wheezes and decreased breath sounds. Heart: Regular, bradycardia. Abdomen: No ascites. Extremities: Negative. Laboratory Data: White count 27.3, hemoglobin 10.6, platelet count 295, and bands 21. Chem profile; BUN 21, creatinine 1.6. Sodium 132. BNP 1504. Procalcitonin 0.6. Assessment: 1.Elevated white count without fever. 2.Renal cell cancer, stage 4. 3.Left pleural effusion, large. 4.Recent atrial fibrillation, currently in sinus rhythm. Plan: It is not clear whether the patient has source of sepsis, however, pulmonary consultation has been done to see whether the patient may have a source of infection in the lung. However, since he i s not running any fever since he does not look septic, oncology consultation will be done to see whet her it can be explained based on the stage 4 cancer with possible bone marrow involvement. The patie nt meanwhile is started on Zosyn, which will be continued pending the opinion of the oncology and pul monary. The patient has been having low blood pressure. He is getting IV fluids. Because of elevat ed BNP, we cannot give a large amount of IV fluids. I will cut down the metoprolol and since he has sinus rhythm. RRK/MODL Voice ID: [id number]
[2018-02-04] MEDS: PIPER/TAZO/NS 3.375gm 3.375 GM/100 ML BAG IVPB SCH ×3 (04:52→20:37)
[2018-02-04] MEDS: SOTALOL HCL 80 MG TAB PO SCH ×2 (05:00→17:29)
[2018-02-04] MEDS: NA CHLORIDE 0.9% 1,000 ML IV SCH ×3 (06:26→20:02)
[2018-02-04] MEDS: PANTOPRAZOLE 40MG TABLET PO SCH ×2 (09:07→20:38)
[2018-02-04 11:01] LABS: Hematocrit 25.2 % (39.6-49.0); MCH 29.3 pg (27.0-35.0); MCV 88.8 fL (80-100); MPV 9.7 fL (7.6-11.3); RBC Red Blood Cell Count 2.84 M/uL (4.33-5.43)
[2018-02-04 11:20] LABS: Albumin 1.9 g/dL (3.4-5.0); Bilirubin Total 0.3 mg/dL (0.2-1.0); Potassium 4.1 mmol/L (3.5-5.1); Protein, Total 5.9 g/dL (6.4-8.2)
--- NOTE | 2018-02-04 18:57 | PN ---
Date of Progress Note: 02/03/2018 The patient is afebrile. He is not in distress. The consultation of Dr. De Jesus noted. The patien t is not dyspneic at rest. The patient will be continued on IV antibiotics. POPEYE/CATIE Voice ID: [id number] Report ID: [id number]
--- NOTE | 2018-02-04 23:30 | PN ---
The patient is doing better. His white count is coming down. He is afebrile. In the office respons e, the patient will be continued on the same antibiotic, pending any additional recommendations from Pulmonary and Oncology Services. POPEYE/CATIE Voice ID: [id number] Report ID: [id number]
[2018-02-05] MEDS: NA CHLORIDE 0.9% 1,000 ML IV SCH ×3 (02:43→22:42)
[2018-02-05] MEDS: PIPER/TAZO/NS 3.375gm 3.375 GM/100 ML BAG IVPB SCH ×3 (06:09→21:46)
[2018-02-05] MEDS: SOTALOL HCL 80 MG TAB PO SCH ×2 (06:10→17:12)
[2018-02-05] MEDS: PANTOPRAZOLE 40MG TABLET PO SCH ×2 (09:09→21:47)
[2018-02-05 10:47] LABS: Hematocrit 26.8 % (39.6-49.0); MCH 29.9 pg (27.0-35.0); MCV 89.3 fL (80-100); MPV 9.8 fL (7.6-11.3); Protime INR 1.23
--- NOTE | 2018-02-05 11:05 | RAD REPORT ---
EXAM DESCRIPTION: Kayla Pa And Lat (2 Views)02/05/2018 9:55 am CLINICAL HISTORY: Shortness of breath COMPARISON: February 02, 2018 FINDINGS: Moderate left pleural effusion is without significant change. Left lung opacities probabl y represent atelectasis. The right lung appears clear of acute infiltrate. The heart is mildly enlarged.
[2018-02-05 11:08] LABS: Albumin 2.1 g/dL (3.4-5.0); Bilirubin Total 0.4 mg/dL (0.2-1.0); Potassium 4.2 mmol/L (3.5-5.1); Protein, Total 6.3 g/dL (6.4-8.2)
--- NOTE | 2018-02-05 12:13 | P.PN ---
Subjective Date of Service: 02/05/18 Chief Complaint: Pleural effusion Patient denies any pulmonary complaints he complaining of diarrhea no shortness of breath or chest no fever or chills is white count is declining patient has a significant effusion on the left side Review of Systems General: Weakness Physical Examination - Vital Signs Temperature: 98.2 F Blood Pressure: 132/60 Pulse: 60 Respirations: 18 Pulse Ox (%): 95 - Physical Exam General: Alert, Oriented x3 HEENT: Atraumatic Neck: Supple Respiratory: Diminished (Diminished air entry on the left side) Cardiovascular: No edema Assessment & Plan - Problems (Diagnosis) (1) Pleural effusion Current Visit: Yes Status: Acute Plan: Patient is 72 years of age admitted with a significant left-sided pleural effusion is PT and INR are declining recommend thoracentesis tomorrow awaiting Oncology consultation continue with IV antibiotics so far is cultures are negative is quite possible that he has a pleural space infection continue with IV antibiotic physical therapy Discuss with Dr. gotti he needs to be referred to hospice care and be discharged home up with Augmentin this is a prognosis is very poor he is not really symptomatic from the fusion Plan to discharge in: 48 Hours
[2018-02-05] MEDS ORDERED: IPRATROPIUM BROM 0.5MG/2.5ML NEB PRN (16:00)
--- NOTE | 2018-02-05 21:37 | PN ---
Date of Progress Note: 02/05/2018 Brief History Of Present Illness: Mr. Aguirre is a 72-year-old who is known to me from the Oncology Clinic where I saw him for the first time, last week (01/29), for recurrent metastatic renal cancer. Briefly, he was diagnosed with renal mass around 2013, and refused therapy until 2016, when he developed anemia and pain. Finally, he underwent left radical nephrectomy on 03/01/2017. 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 He did not follow up with Medical Oncology as advised and until a few weeks ago, when he was hospitalized with failure to thrive and a CT scan done on 01/18/2018, revealed an 8 cm mass in the left renal fossa invading into the spleen along with a 3.5 cm left para-aortic lymph node, which appeared to be neoplastic, and a 3.8 cm right adrenal metastases. He was hospitalized this time with a nausea, poor intake, and worsening weakness. Subjectively, Mr. Aguirre was resting comfortably with his 2 daughters at his bedside, when I saw him earlier today. He denies any pain or discomfort, or nausea at this time. His appetite has improved slightly in the hospital, though he complains of diarrhea when he eats. Objective: Vital Signs: Reveal that he has been afebrile. Temperature was 98 degree Fahrenheit at noon today, pulse 59, respirations 20 per minute, blood pressure 145/67, saturating at 96% on 2 L. General: He denies any pain. Physical examination reveals pallor. He appears to be chronically ill. There is, no cyanosis, clubbing, icterus, bleeding or bruising. Lymph node: Reveals no palpable lymphadenopathy in the neck, axilla, or groin. Chest: Reveals absent breath sounds in the lower half of the left chest. No bronchial breath sounds were heard. Heart: Reveals normal S1, S2. No gallops or murmurs. Abdomen: Soft and nontender with no rebound, rigidity, or ascites. Neurologic: Awake and alert with no acute deficits. Laboratory Data: From this morning, reveals a white count of 8.6 (it was up to 27,000 on admission), hemoglobin is low but stable at 9 g/dL, platelet count was 184,000. Chemistries reveal normal electrolytes. His BUN and creatinine were now back to normal at 14 and 1.1. Albumin is significantly decreased at 2.1. C-reactive protein was significantly elevated at 117. Sedimentation rate was also elevated at 78. Review of the peripheral smear revealed reactive changes with neutrophilia, and absolute monocytosis and left shift. No abnormal blasts were seen. CT chest on admission revealed a moderate left pleural effusion with atelectasis of the left lower lobe. No pulmonary nodules or lymphadenopathy was noted. Assessment And Plan: Mr. Aguirre is a 72-year-old gentleman with advanced recurrent metastatic renal cell carcinoma. His overall condition is poor and declining rapidly in the past month. Given his poor performance status, he is not a candidate for oral or intravenous chemotherapy. Prognostic index indicates that his median survival is in the order of 4 to 6 months. I have recommended the best supportive care in the setting of hospice for him and after discussion with his daughters, they agree. We will refer him to hospice today for comfort care. He is not symptomatic from the pleural effusion, hence would not recommend pleurocentesis at this time. The leukocytosis is reactive and likely secondary to the metastatic malignancy and effusion. No specific therapy is warranted, if there are no other signs of infection, such as fever, positive cultures, etc. Thank you for asking me to see him. Please do not hesitate to call me if you have any other questions. BARTOLO/CATIE Voice ID: [id number] Report ID: [id number] ADOLFO
--- NOTE | 2018-02-06 02:40 | PN ---
The patient had consultation with the Oncology service. They also feel that the patient has poor pro gnosis. I spoke to the family today regarding his care as well as prognosis. The patient's family a ccepted hospice. The patient is transferred to hospice care with service. POPEYE/CATIE Voice ID: [id number] Report ID: [id number]
[2018-02-06] MEDS: SOTALOL HCL 80 MG TAB PO SCH ×2 (05:28→17:15)
[2018-02-06] MEDS: PIPER/TAZO/NS 3.375gm 3.375 GM/100 ML BAG IVPB SCH (05:28)
[2018-02-06] MEDS: NA CHLORIDE 0.9% 1,000 ML IV SCH ×2 (05:29→12:02)
[2018-02-06] MEDS: PANTOPRAZOLE 40MG TABLET PO SCH (08:09)
[2018-02-06 08:31] LABS: Albumin 2.1 g/dL (3.4-5.0); Bilirubin Total 0.4 mg/dL (0.2-1.0); Potassium 4.1 mmol/L (3.5-5.1)
[2018-02-06 08:33] LABS: Hematocrit 26.4 % (39.6-49.0); MCH 29.9 pg (27.0-35.0); MCV 90.4 fL (80-100); RBC Red Blood Cell Count 2.92 M/uL (4.33-5.43)
[2018-02-06 08:35] LABS: Protime INR 1.31
[2018-02-06 13:46] VITALS: O2SAT 96
[2018-02-06 17:26] VITALS: BP 156/69; TEMP 98.8
--- NOTE | 2018-03-11 19:23 | DS ---
Date of Discharge: 02/06/2018 Final Diagnoses: 1.Metastatic cancer from renal cell carcinoma. 2.Left pleural effusion secondary to metastatic disease. 3.Atrial fibrillation, transient. Hospital Course: This patient was admitted because of feeling of weakness and fatigue. The patient had elevated white count; however, there was no clear-cut source of infection in view of his metastat ic disease. It was thought that very likely may have bone marrow involvement. Hematology consult wa s obtained. They were of the same opinion that very likely the patient has bone marrow infiltration causing elevated white count. They also felt that the patient was not a candidate for any chemothera py and advised hospice care. During the hospital stay, the patient received supportive care and coun seling, and he was transferred to hospice care on 02/06/2018. Laboratory Data: Please refer to the chart. POPEYE/CATIE Voice ID: [id number] Report ID: [id number]
== END 2018-02-06 18:22 | disposition hospice, home (50) | DRG 187 ==
LOC: ER 10:33 → ERHOLD 12:13 → 2ND 14:08
PROVIDERS: ADMIT Physician Assistant; ATTEND Internal Medicine
DX: J90 Pleural effusion, not elsewhere classified (principal); C78.89 Secondary malignant neoplasm of other digestive organs; C79.71 Secondary malignant neoplasm of right adrenal gland; C77.2 Secondary and unspecified malignant neoplasm of intra-abdominal lymph nodes; J98.11 Atelectasis; Z85.528 Personal history of other malignant neoplasm of kidney; Z51.5 Encounter for palliative care; D72.829 Elevated white blood cell count, unspecified; Z86.73 Personal history of transient ischemic attack (TIA), and cerebral infarction without residual deficits; I48.91 Unspecified atrial fibrillation; Z79.01 Long term (current) use of anticoagulants; I10 Essential (primary) hypertension; R11.2 Nausea with vomiting, unspecified; Z90.5 Acquired absence of kidney; R53.1 Weakness
CPT/HCPCS: 36415; 51702; 71045; 71046; 71260; 80048; 80053; 80076; 81003; 81015; 83605; 83880; 84145; 85025; 85027; 85610; 85652; 86140; 87040; 87086; 87088; 87493; 93005; 94640; 94760; 96361; 96365; 96375; 99285; J2543; J2930; J7030; Q9967